=== PATIENT | female | born 1930 | race Caucasian/White ===

== ENCOUNTER 2017-01-27 16:45 | Inpatient (IN) | payer OTHER, MEDICARE ==
[~2017-01-27] VITALS: Ht 149.9 cm; Wt 88.5 kg
[~2017-01-27 16:45] MED LIST: AMLODIPINE BESYL5 M1 PO; ATIVAN0.5 MG PO; BYETTA10 MCG/0.0 SC; CLONIDINE0.1 MG PO; COUMADIN 1 MG TA1 MG PO; COUMADIN3 M1 PO; DIOVAN320 M1 PO; FENOFIBRATE150 MG PO; GABAPENTIN300 MG PO; HUMALOG100 UNIT/1 SC; HYDRALAZINE HCL25 M1 PO; HYDRALAZINE10 MG PO; IMDUR60 MG PO; INDAPAMIDE2.5 M1 PO; ISOSORBIDE MONO60 MG PO; K-TAB ER20 MEQ PO; LABETALOL HYDR100 MG PO; LANTUS SOL100 UNIT/1 SC; LOVAZA1 G1 PO; MONTELUKAST SOD10 MG PO; MOTRIN 600 MG600 MG PO; NORVASC 10MG10 MG PO; OMEGA-3-ACID ETH1 GM PO; TRICOR160 MG PO; VITAMIN D2000 UNI1 PO; WARFARIN SODIUM3 MG PO
--- NOTE | 2017-01-27 16:52 | NUR ---
PER PT SENT BY DR. BO FOR WORSENING SOB AND EKG CHANGES. PER PT SOB LAST FEW DAYS, PT SOB AT REST.
--- NOTE | 2017-01-27 17:09 | NUR ---
RECIEVED TO ROOM 2. ON MONITOR IN SINUS RHYTHM. SOB WITH TALKING. SATS 95% ON ROOM AIR. DEVON JOY PA IN TO SEE PT. DTRS AT BEDSIDE. STATES PT HAS HISTORY OF PE IS ON COUMADIN AND HAD SIMILARY SYMPTOMS WHEN SHE HAD HER PE.
--- NOTE | 2017-01-27 17:16 | ED CARDIAC/CP/PALPITATIONS ---
See Addendum History of Present Illness General Chief Complaint: Dyspnea (COPD, CHF, Other) Stated Complaint: SIB BY DR WITH CHEST PAIN Source: patient, family, old records Exam Limitations: no limitations Vital Signs & Intake/Output Vital Signs & Intake/Output Vital Signs Date Time Temp Pulse Resp B/P B/P Pulse O2 O2 Flow FiO2 Mean Ox Delivery Rate 01/27 1653 98.3 68 28 154/73 Allergies Coded Allergies: Sulfa (Sulfonamide Antibiotics) (Severe, ANAPHYLAXIS 04/05/16) STATINS (BAD REAXCTION 01/27/17) YUKO Inhibitors (Intermediate, COUGH 04/05/16) Triage Note: PER PT SENT BY DR. BO FOR WORSENING SOB AND EKG CHANGES. PER PT SOB LAST FEW DAYS, PT SOB AT REST. Triage Nurses Notes Reviewed? yes HPI: Patient is an 86 year old female sent in by her primary doctor for further evaluation of dyspnea and chest pain with exertion. Chest pain with exertion for a couple of months, worse x 2 days. Chest pain is 0/10 currently, last epsiode 1 hour ago while at her doctor's office when she was walking in the hallway. Dyspnea is currently mild at rest, worsens with exertion. Patient has history of 2nd degree heart block. On coumadin for history of PE, INR was 2.2 today at the doctor's office. Bilateral lower extremity edema, chronic and unchanged per patient. Chest pain is a heaviness sensation, intermittently radiates to the left chest. Nausea yesterday, none today. Denies diaphoresis, fevers, chills, vomiting. (RUFINO KINCAID,DEVON) Reconcile Medications Amlodipine Besylate 5 MG TABLET 1 TAB PO BID HEART/BP (Reported) Cholecalciferol (Vitamin D3) (Vitamin D) 2,000 UNIT TABLET 1 TAB PO DAILY SUPPLEMENT (Reported) Clonidine HCl 0.2 MG TABLET 1 TAB PO QHS BP (Reported) Exenatide (Byetta) 10MCG/0.04 PEN.INJCTR 10 MG SC BID DM (Reported) Fenofibrate 150 MG CAPSULE 1 CAP PO EOD CHOLESTEROL/TRIGLYCERIDES (Reported) Gabapentin (Neurontin) 300 MG CAPSULE 1 CAP PO QHS DYSARTHRIA (Reported) Gabapentin 400 MG CAPSULE 1 CAP PO QHS DYSARTHRIA (Reported) Hydralazine HCl 25 MG TABLET 1 TAB PO TID BP (Reported) Indapamide 2.5 MG TABLET 1 TAB PO DAILY BP (Reported) Insulin Glargine,Hum.rec.anlog (Lantus Solostar) 100 UNIT/1 ML INSULN.PEN 26 UNIT SC QAM DIABETES (Reported) Insulin Glargine,Hum.rec.anlog (Lantus Solostar) 100 UNIT/ML (3 ML) INSULN.PEN 2 UNITS SC QPM DM (Reported) Insulin Lispro (Humalog) 100 UNIT/ML CARTRIDGE 2 UNITS SC TIDAC DM (Reported) Isosorbide Mononitrate (Isosorbide Mononitrate ER) 60 MG TAB.ER.24H 1 TAB PO BID HEART (Reported) Montelukast Sodium 10 MG TABLET 1 TAB PO DAILY ALLERGIES/RESPIRATORY ( Reported) [place]-3 Acid Ethyl Esters (Lovaza) 1 GRAM CAPSULE 1 CAP PO BID CHOLESTEROL ( Reported) Potassium Chloride (K-Tab ER) 20 MEQ TABLET.ER 1 TAB PO DAILY SUPPLEMENT ( Reported) Valsartan (Diovan) 320 MG TABLET 1 TAB PO DAILY HEART/BP (Reported) Warfarin Sodium (Coumadin) 3 MG TABLET 1 TAB PO 1700 BLOOD THINNER (Reported) (RUSSEL ULLOA,OXANA) Past History Travel History Traveled to [place] past 21 day No Medical History Any Pertinent Medical History? 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 No (DEVON SMITH) Review of Systems Review of Systems Constitutional: Denies: chills, fever. EENTM: Reports: no symptoms. Respiratory: Reports: short of breath (with exertion). Cardiovascular: Reports: peripheral edema. Denies: chest pain, syncope. GI: Denies: abdominal pain, nausea, vomiting. Genitourinary: Reports: no symptoms. Musculoskeletal: Reports: no symptoms. Skin: Reports: no symptoms. Neurological/Psychological: Reports: no symptoms. Hematologic/Endocrine: Reports: no symptoms. Immunologic/Allergic: Reports: no symptoms. (DEVON SMITH) Physical Exam Physical Exam General Appearance: well developed/nourished, alert, awake Head: atraumatic, normal appearance Eyes: Bilateral: normal appearance, PERRL, EOMI. Ears, Nose, Throat: normal pharynx, normal ENT inspection, hearing grossly normal Neck: normal inspection, supple, full range of motion Respiratory: normal breath sounds, chest non-tender, no respiratory distress Cardiovascular: irregular rhythm, rate controlled Peripheral Pulses: 2+ dorsalis pedis (R), 2+ dorsalis pedis (L) Gastrointestinal: soft, non-tender Back: normal inspection, normal range of motion Extremities: 2+ bilateral lower extremity edema Neurologic/Psych: awake, alert, oriented x 3 Skin: intact, normal color, warm/dry Lymphatic: no anterior cervical nanda Core Measures ACS in differential dx? Yes ASA ordered for poss ACS? Yes-ordered Severe Sepsis Present: No Septic Shock Present: No (DEVON SMITH) Progress Differential Diagnosis: AMI, aortic dissection, myocarditis, pericarditis, pneumonia, pulmonary embolism, respiratory failure, unstable angina Plan of Care: Orders Procedure Date/time Status Regular Diet 01/27 D Active Patient Data 01/27 1848 Active OXYGEN SETUP (GEN) 01/27 1829 Active Saline Lock 01/27 1829 Active Admit to inpatient 01/27 182 Active Vital Signs 01/27 182 Active Activity/Ambulation 01/27 182 Active Code Status 01/27 182 Active Telemetry/Facility Coordinator 01/27 171 Active TROPONIN LEVEL 01/28 1716 Complete PARTIAL THROMBOPLASTIN TIME 01/28 1716 Complete PROTHROMBIN TIME 01/28 1716 Complete COMPREHENSIVE METABOLIC PANEL 01/28 1716 Complete CBC WITHOUT DIFFERENTIAL 01/28 1716 Complete EKG 01/28 1716 Active Laboratory Tests 01/27/17 1729: Anion Gap 11, Estimated GFR 47 L, BUN/Creatinine Ratio 37.3 H, Glucose 83, Calcium 10.2, Total Bilirubin 0.5, AST 29, ALT 39, Alkaline Phosphatase 39, Troponin I < 0.01, Total Protein 6.8, Albumin 4.0, Globulin 2.8, Albumin/ Globulin Ratio 1.4, PT 23.2 H, INR 2.23 H, APTT 36, CBC w Diff NO MAN DIFF REQ , RBC 3.98 L, MCV 88.8, MCH 29.6, RDW 15.0 H, MPV 7.5, Gran % 61.2, Lymphocytes % 26.2, Monocytes % 9.3, Eosinophils % 2.9, Basophils % 0.4, Absolute Granulocytes 5.3, Absolute Lymphocytes 2.3, Absolute Monocytes 0.8 H, Absolute Eosinophils 0.3, Absolute Basophils 0, PUBS MCHC 33.3 1720: Discussed with Dr. Mccollum 184: Results discussed with patient and her family. Dr. Harrison discussed patient with Dr. Kitchen for admission. (RUFINO KINCAID,DEVON) Diagnostic Imaging: Viewed by Me: Radiology Read. Discussed w/RAD: Radiology Read. CXR Impression: PATIENT: ALIYAH LEAVITT PRESENT AGE: 86 PATIENT ACCOUNT NO: [id number] : 31 LOCATION: [facility] ORDERING PHYSICIAN: DEVON KINCAID SERVICE DATE: 01/27/17 EXAM TYPE: RAD - XRY- PORTABLE CHEST XRAY EXAMINATION: XR PORTABLE CHEST CLINICAL INFORMATION: Dyspnea. Chest pain with exertion. COMPARISON: Chest x-ray 08/14/2015. Dictated report only. Images not available for review. TECHNIQUE: Portable frontal view of the chest was obtained. 5:30 PM. FINDINGS: Lungs are clear. No pulmonary vascular congestion. No infiltrate or pleural effusion. The heart size is normal. The cardiac and mediastinal contours are normal. There are calcifications of the thoracic aorta. There are multilevel degenerative changes of dorsal spine. IMPRESSION: No acute abnormality of the chest. DICTATED BY: MELISSA CHURCH MD DATE/TIME DICTATED:01/27/171805 SPECIAL EVENT ASSISTANT:MARCIN DATE/TIME TRANSCRIBED:01/27/171805 CONFIDENTIAL, DO NOT COPY WITHOUT APPROPRIATE AUTHORIZATION. <Electronically signed in Other Vendor System> SIGNED BY: MELISSA CHURCH MD 01/27/171809 Pre-Hospital EKG: sinus rhythm, 2nd degree heart block, no acute st/t wave changes Initial ED EKG: sinus rhythm, 1st degree AV block, nonspecific st/t wave abnormalities, lvh Prior EKG: unchanged Rhythm Strip: sinus bradycardia (DEVON SMITH) Departure Departure Time of Disposition: 1841 Disposition: STILL A PATIENT Condition: Stable Clinical Impression Primary Impression: Angina pectoris Referrals: HASMUKH ROACH MD (PCP/Family) Departure Forms: Customer Survey General Discharge Information Admission Note Spoke With: LAZARUS KITCHEN MD Documentation of Exam: Documentation of any treatments & extenuating circumstances including Concerns Regarding Discharge (functional status, medication knowledge or non-compliance, living conditions, etc.) that warrant an admission rather than observation: Serial EKGs, serial troponins, cardiology evaluation, stress test, echocardiogram, likely medication adjustment. Patient with numerous risk factors and having new anginal symptoms. (DEVON SMITH) PA/ROPE MACHINE SETTER Co-Sign Statement Statement: ED Attending supervision documentation- x I saw and evaluated the patient. I have also reviewed all the pertinent lab results and diagnostic results. I agree with the findings and the plan of care as documented in the PA's/ROPE MACHINE SETTER's documentation. [] I have reviewed the ED Record and agree with the PA's/ROPE MACHINE SETTER's documentation. [] Additions or exceptions (if any) to the PAs/ROPE MACHINE SETTER's note and plan are summarized below: [] (RUSSEL ULLOA,OXANA) Critical Care Note Critical Care Note Critical Care Time: non-applicable (DEVON SMITH)
--- NOTE | 2017-01-27 17:34 | NUR ---
LABS DRAWN. CXR DONE.
[2017-01-27 17:42] LABS: ABSOLUTE BASOPHIL COUNT 0 /CUMM (0.0-0.2); ABSOLUTE EOSINOPHIL COUNT 0.3 /CUMM (0.0-0.7); ABSOLUTE GRANULOCYTE CT 5.3 /CUMM (1.4-6.5); ABSOLUTE LYMPH COUNT 2.3 /CUMM (1.2-3.4); ABSOLUTE MONOCYTE COUNT 0.8 /CUMM (0.10-0.60); BASOPHIL % 0.4 % (0.0-2.0); EOSINOPHIL % 2.9 % (0-5); GRANULOCYTE % 61.2 % (42.2-75.2); HEMATOCRIT 35.4 % (37-47); MEAN CORPUSCULAR HGB 29.6 PG (27.0-31.0); MEAN CORPUSCULAR HGB CONC 33.3 G/DL (33.0-37.0); MEAN CORPUSCULAR VOLUME 88.8 FL (81.0-99.0); MEAN PLATELET VOLUME 7.5 FL (7.4-10.4); PLATELET COUNT 289 /CUMM (130-400); RED BLOOD CELL CT 3.98 /CUMM (4.20-5.40); WHITE BLOOD CELL COUNT 8.7 /CUMM (4.8-10.8)
[2017-01-27 17:50] LABS: PT 23.2 SEC (9.4-12.5); PTT 36 SEC (25-37)
--- NOTE | 2017-01-27 18:09 | NUR ---
FINGERSTICK GLUCOSE 85. PT IDDM AND IS CONCERNED HER SUGAR WILL GO LOWER AND STATES SHE IS SYMPTOMATIC WHEN LESS THEN 80. DEVON JOY NOTIFIED AND APPROVED PT TO HAVE ORANGE JUICE. PT GIVEN 120CC OJ
--- NOTE | 2017-01-27 18:10 | RADIOLOGY REPORT ---
EXAMINATION: XR PORTABLE CHEST CLINICAL INFORMATION: Dyspnea. Chest pain with exertion. COMPARISON: Chest x-ray 08/14/2015. Dictated report only. Images not available for review. TECHNIQUE: Portable frontal view of the chest was obtained. 5:30 PM. FINDINGS: Lungs are clear. No pulmonary vascular congestion. No infiltrate or pleural effusion. The heart size is normal. The cardiac and mediastinal contours are normal. There are calcifications of the thoracic aorta. There are multilevel degenerative changes of dorsal spine. IMPRESSION: No acute abnormality of the chest.
[2017-01-27] MEDS ORDERED: ISOSORBIDE MONO60 M1 PO (18:38)
[2017-01-27] MEDS ORDERED: MONTELUKAST SOD10 M1 PO (18:39)
[2017-01-27] MEDS ORDERED: FENOFIBRATE PO (18:41)
[2017-01-27] MEDS ORDERED: NEURONTIN300 M1 PO (18:43)
[2017-01-27] MEDS ORDERED: CLONIDINE HCL0.2 M1 PO (18:44)
--- NOTE | 2017-01-27 18:44 | NUR ---
PT MEDICATED WITH ASA . CONFIRMED PLAN FOR ADMISSION.
[2017-01-27] MEDS ORDERED: LANTUS SOL100 UNIT/1 SC (18:45)
[2017-01-27] MEDS ORDERED: GABAPENTIN400 M2 PO (18:49)
--- NOTE | 2017-01-27 19:10 | NUR ---
PT ATE DINNER
--- NOTE | 2017-01-27 19:54 | NUR ---
PT GOING TO ROOM 172-1.
--- NOTE | 2017-01-27 20:13 | NUR ---
PT WITH PERIODS OF SINUS RHYTHM WITH FIRST DEGREE AV BLOCK AND PERIODS OF SECOND DEGREE TYPE 1. PER FAMILY THIS IS BASELINE RHYTHM FOR PATIENT
--- NOTE | 2017-01-27 20:25 | NUR ---
REPORT CALLED TO TELE UNIT. HOUSE STAFF IN TO SEE PT.
--- NOTE | 2017-01-27 20:44 | NUR ---
HOUSE STAFF COMPLETED VISIT WITH PT
[2017-01-27 21:14] VITALS: BP 188/62
--- NOTE | 2017-01-27 21:19 | History & Physical ---
VALENTE ULLOA,[facility] 01/27/17 2118: General Information and HPI Allergies/Medications Allergies: Coded Allergies: Sulfa (Sulfonamide Antibiotics) (Severe, ANAPHYLAXIS 04/05/16) STATINS (BAD REAXCTION 01/27/17) YUKO Inhibitors (Intermediate, COUGH 04/05/16) Home Med list Amlodipine Besylate 5 MG TABLET 1 TAB PO BID HEART/BP (Reported) Cholecalciferol (Vitamin D3) (Vitamin D) 2,000 UNIT TABLET 1 TAB PO DAILY SUPPLEMENT (Reported) Clonidine HCl 0.2 MG TABLET 1 TAB PO QHS BP (Reported) Exenatide (Byetta) 10MCG/0.04 PEN.INJCTR 10 MG SC BID DM (Reported) Fenofibrate 150 MG CAPSULE 1 CAP PO EOD CHOLESTEROL/TRIGLYCERIDES (Reported) Gabapentin 400 MG CAPSULE 1 CAP PO QHS DYSARTHRIA (Reported) Hydralazine HCl 25 MG TABLET 1 TAB PO TID BP (Reported) Indapamide 2.5 MG TABLET 1 TAB PO DAILY BP (Reported) Insulin Glargine,Hum.rec.anlog (Lantus Solostar) 100 UNIT/1 ML INSULN.PEN 26 UNIT SC QAM DIABETES (Reported) Insulin Glargine,Hum.rec.anlog (Lantus Solostar) 100 UNIT/ML (3 ML) INSULN.PEN 2 UNITS SC QPM DM (Reported) Insulin Lispro (Humalog) 100 UNIT/ML CARTRIDGE 2 UNITS SC TIDAC DM (Reported) Isosorbide Mononitrate (Isosorbide Mononitrate ER) 60 MG TAB.ER.24H 1 TAB PO BID HEART (Reported) Montelukast Sodium 10 MG TABLET 1 TAB PO DAILY ALLERGIES/RESPIRATORY ( Reported) [place]-3 Acid Ethyl Esters (Lovaza) 1 GRAM CAPSULE 1 CAP PO BID CHOLESTEROL ( Reported) Potassium Chloride (K-Tab ER) 20 MEQ TABLET.ER 1 TAB PO DAILY SUPPLEMENT ( Reported) Valsartan (Diovan) 320 MG TABLET 1 TAB PO DAILY HEART/BP (Reported) Warfarin Sodium (Coumadin) 3 MG TABLET 1 TAB PO 1700 BLOOD THINNER (Reported) Past History Travel History Traveled to [place] past 21 day No Medical History Neurological: ADULT TREMORS EENT: NONE Cardiovascular: hypertension, hyperlipidemia Respiratory: pulmonary embolism Gastrointestinal: diverticulitis, irritable bowel syndrome, peptic ulcer disease , KIDNEY STONES Hepatic: NONE Renal: NONE Musculoskeletal: NONE Psychiatric: NONE Endocrine: diabetes Blood Disorders: PE Cancer(s): breast cancer 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 yes Name of POA/HCP: Her Daughter Functional Ability ADLs Independent: dressing, eating, toileting, bathing. Ambulation: cane Core Measures/Miscellaneous Severe Sepsis Severe Sepsis Present: No Septic Shock Septic Shock Present: No AIDEE GIFFORD 01/27/17 8526: General Information and HPI MD Statement: I have seen and personally examined ALIYAH LEAVITT and documented this H&P. The patient is a 86 year old F who presented with a patient stated chief complaint of []. Resident Review Statement Resident Statement: examined this patient, discussed with architect internship, agreed with architect internship, discussed with family, reviewed EMR data (avail) Other Findings: Ms. Leavitt, is an 86-year-old female with significant past medical history of hypertension, diverticulitis, IBS, diabetes, R breast cancer status post bilateral lumpectomy [no radiation/chemotherapy], and pulmonary embolism on Coumadin therapy, who presents to the emergency department with a c/o of SOB and chest tightness. Patient report that her started about 1 ALBALWAI,AFAF 01/27/17 2316: Resident Review Statement Resident Statement: examined this patient, discussed with architect internship, agreed with architect internship, discussed with family, reviewed EMR data (avail)
--- NOTE | 2017-01-27 23:36 | History & Physical ---
VALENTE ULLOA,[facility] 01/27/17 2336: General Information and HPI MD Statement: I have seen and personally examined ALIYAH LEAVITT and documented this H&P. The patient is a 86 year old F who presented with a patient stated chief complaint of [dyspnea, chest pain on exertion]. Source of Information: patient, family, old records Exam Limitations: no limitations, clinical condition History of Present Illness: Ms. Leavitt is 86 year old female with chief complaint of dyspnea and chest pain on exertion. Patient has past medical history significant for hypertension, PE on Coumadin, essential tremors, second-degree heart block Mobitz 1, diverticulosis, irritable bowel syndrome, diabetes mellitus, breast cancer status post bilateral lumpectomy (no radiation or chemotherapy). Patient reported two-month history of progressively worsening dyspnea on rest and activity associated with chest discomfort that is on and off lasts for few seconds at the center of her chest and radiates to left side, not associated with palpitation, diaphoresis, headache, blurry vision, dizziness. She used to sleep with 2 pillows denied any orthopnea or paroxysmal nocturnal dyspnea. Patient is following with a terminal superintendent for sleep study. Patient has bilateral lower extremity swelling that is chronic and at baseline. Patient reported cough, denied fever, chills, abdominal pain, nausea or vomiting , change in bowel habits. Patient has urine incontinence. History of pneumonia last month that was treated with an antibiotic as an outpatient. Patient is never a smoker, no alcohol consumption and no history of illict drug. Patient is following with Dr. Mcginnis hydrometer finisher. Allergies/Medications Allergies: Coded Allergies: Sulfa (Sulfonamide Antibiotics) (Severe, ANAPHYLAXIS 04/05/16) STATINS (BAD REAXCTION 01/27/17) YUKO Inhibitors (Intermediate, COUGH 04/05/16) Home Med list Amlodipine Besylate 5 MG TABLET 1 TAB PO BID HEART/BP (Reported) Cholecalciferol (Vitamin D3) (Vitamin D) 2,000 UNIT TABLET 1 TAB PO DAILY SUPPLEMENT (Reported) Clonidine HCl 0.2 MG TABLET 1 TAB PO QHS BP (Reported) Exenatide (Byetta) 10MCG/0.04 PEN.INJCTR 10 MG SC BID DM (Reported) Fenofibrate 150 MG CAPSULE 1 CAP PO EOD CHOLESTEROL/TRIGLYCERIDES (Reported) Gabapentin 400 MG CAPSULE 1 CAP PO QHS DYSARTHRIA (Reported) Hydralazine HCl 25 MG TABLET 1 TAB PO TID BP (Reported) Indapamide 2.5 MG TABLET 1 TAB PO DAILY BP (Reported) Insulin Glargine,Hum.rec.anlog (Lantus Solostar) 100 UNIT/1 ML INSULN.PEN 26 UNIT SC QAM DIABETES (Reported) Insulin Glargine,Hum.rec.anlog (Lantus Solostar) 100 UNIT/ML (3 ML) INSULN.PEN 2 UNITS SC QPM DM (Reported) Insulin Lispro (Humalog) 100 UNIT/ML CARTRIDGE 2 UNITS SC TIDAC DM (Reported) Isosorbide Mononitrate (Isosorbide Mononitrate ER) 60 MG TAB.ER.24H 1 TAB PO BID HEART (Reported) Montelukast Sodium 10 MG TABLET 1 TAB PO DAILY ALLERGIES/RESPIRATORY ( Reported) [place]-3 Acid Ethyl Esters (Lovaza) 1 GRAM CAPSULE 1 CAP PO BID CHOLESTEROL ( Reported) Potassium Chloride (K-Tab ER) 20 MEQ TABLET.ER 1 TAB PO DAILY SUPPLEMENT ( Reported) Valsartan (Diovan) 320 MG TABLET 1 TAB PO DAILY HEART/BP (Reported) Warfarin Sodium (Coumadin) 3 MG TABLET 1 TAB PO 1700 BLOOD THINNER (Reported) Past History Travel History Traveled to [place] past 21 day No Medical History Neurological: ADULT TREMORS EENT: NONE Cardiovascular: hypertension, hyperlipidemia Respiratory: pulmonary embolism Gastrointestinal: diverticulitis, irritable bowel syndrome, peptic ulcer disease , KIDNEY STONES Hepatic: NONE Renal: NONE Musculoskeletal: NONE Psychiatric: NONE Endocrine: diabetes Blood Disorders: PE Cancer(s): breast cancer GAME PRODUCER/Reproductive: NONE History of MRSA: Yes History of VRE: No History of CDIFF: No Isolation History: Standard Tetanus Vaccine: 12/28/11 Surgical History Surgical History: appendectomy, cholecystectomy, hernia repair-incisional, LUMPECTOMY BL CARPAL TUNNEL R ROTATOR CUFF GALLBLADDER CATARACTS BL Past Family/Social History Psychosocial History Where do you live? Home Services at Home: None Smoking Status: Unknown If Ever Smoked Power of Inner Layer Scrubber Tender/HCP? yes Name of POA/HCP: Her Daughter Functional Ability ADLs Independent: dressing, eating, toileting, bathing. Ambulation: cane Review of Systems Review of Systems Constitutional: Reports: see HPI. Exam & Diagnostic Data Last 24 Hrs of Vital Signs/I&O Vital Signs Date Time Temp Pulse Resp B/P B/P Pulse O2 O2 Flow FiO2 Mean Ox Delivery Rate 01/273 95 01/274 98.4 52 16 188/62 96 Room Air 01/28 2012 Room Air 01/27 1951 96.7 62 20 97 Room Air 01/279 172/68 05 1653 98.3 68 28 154/73 Physical Exam General Appearance Alert, Oriented X3, Cooperative, Mild Distress Skin No Rashes, No Breakdown, No Significant Lesion Skin Temp/Moisture Exam: Warm/Dry HEENT Atraumatic, PERRLA, EOMI, Mucous Membr. moist/pink Neck Supple, No JVD Lymphatic no cervical lymphadenopathy Cardiovascular Regular Rate, Normal S1, Normal S2, No Murmurs Lungs Clear to Auscultation, Normal Air Movement Abdomen Normal Bowel Sounds, Soft, No Tenderness Neurological Normal Gait, Normal Speech, Strength at 5/5 X4 Ext, Normal Tone, Sensation Intact, Cranial Nerves 3-12 NL, Reflexes 2+ Extremities No Clubbing, No Cyanosis, No Edema, Normal Pulses Assessment/Plan Assessment: Ms. Leavitt is 86 year old female with chief complaint of dyspnea and chest pain on exertion. Patient has past medical history significant for hypertension, PE on Coumadin, essential tremors, second-degree heart block Mobitz 1, diverticulosis, irritable bowel syndrome, diabetes mellitus, breast cancer status post bilateral lumpectomy (no radiation or chemotherapy). On admission Vital temperature 98.3, pulse 68, respiratory 28, blood pressure 154/73, saturation 96% on room air Labs WBC 8.7, H&H 11.8/35.4, platelet 289, INR 2.23, sodium 135, potassium 4.9, BUN/creatinine 41/1.1, glucose 83, liver function within normal, troponin <0.01 Image chest x-ray didn't reveal any acute abnormality of the chest Problem list #Progressive worsening dyspnea #History of PE on warfarin with therapeutic INR #Hypertension #Diabetes mellitus #Heart block type 2 Mobitz 1 #Essential tremors #Chronic kidney disease Plan -Admit to telemetry floor -Progressive worsening dyspnea in absence of lower extremity edema or JVP makes the diagnosis of congestive heart failure of low probability -Although patient has dyspnea, she has been saturating well on room oxygen -Consider d-dimer to rule out PE, warfarin failure Well's createria 4.5 moderate risk -CTA with hydration and setting of chronic kidney disease -Will start heparin drip -Obtain echocardiogram (last echo in the system 2014 EF 60-65%, no valvular abnormality) -Cardiology evaluation in a.m. -Obtain second set of troponin and EKG -Monitor in telemetry for any arrhythmia -Obtain TSH, free T4 -Obtain PBNP -Accu-Chek with insulin sliding scale 3 times a day -Continue home levemir 26 units in a.m. and 2 units in p.m. -Continue other home medication except for warfrain -Diet diabetic diet -Code full -DVT prophylaxis heparin drip As Ranked By This Provider Problem List: 1. Diabetes mellitus 2. Essential hypertension 3. Shortness of breath 4. Second degree AV block, Mobitz type I Core Measures/Miscellaneous Acute Coronary Syndrome ACS Diagnosis: No Cerebrovascular Accident CVA/TIA Diagnosis: No Congestive Heart Failure CHF Diagnosis: No Venous Thromboembolism VTE Risk Factors: Age > 40 No [facility] VTE prophylaxis d/t: No contraindications No VTE Pharm Prophylaxis d/t: No contraindications VTE Diagnosis: No VTE Type: NONE VTE Confirmed by (Test): NONE Severe Sepsis Severe Sepsis Present: No Septic Shock Septic Shock Present: No Miscellaneous Documentation Attending Case Discussed With: FIDELINA ULLOA,LAZARUS Bragg Primary Care Physician: HASMUKH ROACH MD Patient sees these Specialists Cardiology Level of Patient Care: Telemetry DYLON OLIVAS 01/27/17 2355: Resident Review Statement Resident Statement: examined this patient, discussed with communications intern, agreed with communications intern, discussed with family, reviewed EMR data (avail) Other Findings: Ms. Leavitt, is an 86-year-old female with significant past medical history of hypertension, diverticulitis, IBS, diabetes, R breast cancer status post bilateral lumpectomy [no radiation/chemotherapy, and pulmonary embolism on Coumadin therapy, who presents to the emergency department with a c/o of SOB and chest tightness. Patient report SOB of breath over the last 2 months, getting progressively worse , now even with rest, she report chest tightness radiating to the left armpit, she denies any cough or sputum production, she had B/L LE swelling in her baseline, she use compression stocking for that, today she was evaluated by her PCP who refer her to our ED she found to be tachypneic her RR:28, she had INR of 2.23 but she may failed coumadin. Details Hx. as above Vitals, examination and Labs as above CXR: No acute abnormality of the chest. EKst degree block, 61bpm, no acute changes Well's criterea 7.5, PE is very likely Assessment: -SOB which is most likely secondary to PE vs CHF -Chest tightness needs to R/O ACS -Hx. of PE on coumadin with therapeutic INR -First degree heart block, no symptoms of dizziness or palpitation -Essential tremor -Uncontrolled BP -Hx. of diabetes Plan: * Will admitt to telemetry floor * Stat CTA * If CTA +ve for PE will start iv heparin, if no PE will continue Coumadin * Please monitor kidney function, creatinie at am, after contrast * Will hold on Lasix for now until morning lab, if no elevation in creatinine level, consider 1 dose of 20mg IV Lasix (For now I don't want to stress her kidney after contrast) * No need to order D-Dimer (Low specificity), as we are doing CTA which is gold standard to confirm PE. * Will start all of her home medications * Monitor her BP and adjust her medications as needed * Acchucheck, insulin sliding scale * Echocardiogram * Will trend troponin and EKG * Labs at am * To be seen by at am Full code DVT ppx. Heparin Case was discussed with oncall hydrometer finisher who agreed with 'above [facility] 1024: Attending MD Review Statement Attending Statement Attending MD Statement: examined this patient, discuss w/resident/PA/MINE PROMOTOR, reviewed EMR data (avail), reviewed images, amended to note (see my note)
--- NOTE | 2017-01-28 00:21 | CT SCAN REPORT ---
EXAMINATION: CT ANGIOGRAM OF THE CHEST WITH AND WITHOUT CONTRAST (CT PULMONARY ANGIOGRAM FOR PE) CLINICAL INFORMATION: Reason for Study: Presumptive Dx: PE; Signs Symptoms: SOB COMPARISON: 08/15/2015 TECHNIQUE: Prior to contrast administration, noncontrast localization images were obtained. Subsequently, multidetector volumetric imaging was performed from the thoracic inlet to below the diaphragms following the administration of 72 mL Optiray 350 intravenous contrast. No contrast reaction reported. Sagittal, coronal, and MIP oblique sagittal reformatted images were obtained on the CT workstation, uploaded to PACS, and reviewed. Total exam dose-length product 503.63 mGy-cm. FINDINGS: QUALITY OF STUDY/CONTRAST BOLUS: Satisfactory PULMONARY ARTERIES: No central or segmental pulmonary emboli. LUNG: Redemonstrated subpleural curvilinear opacity in the medial right lower lobe is suspected to reflect atelectasis. No additional consolidation is seen bilaterally. There is a subpleural 3 mL pulmonary nodule in the right middle lobe on image 260/443, unchanged from prior and likely benign. PLEURA: No pleural effusion or pneumothorax. MEDIASTINUM: Partially calcified right thyroid lobe nodule is noted. There are subcentimeter mediastinal lymph nodes within the range of normal variation. Cardiac size is within normal limits; no pericardial effusion. Coronary artery calcifications are present. No evidence of septal bowing or right heart strain. There is atherosclerotic calcification along the aorta. There is suggestion of a small hiatal hernia. CHEST WALL/AXILLA: There is a partially calcified right upper breast density with overlying skin retraction which appears increased from 08/15/2015. No axillary lymphadenopathy is present. OSSEOUS STRUCTURES: Degenerative changes are noted in the spine. There are subacute appearing fractures of the anterior right fifth and sixth ribs. UPPER ABDOMEN: There is a left upper pole renal cyst measuring up to 1.6 cm in diameter. No reflux of contrast into the hepatic veins to suggest elevated right heart pressures. IMPRESSION: 1. No pulmonary embolus identified. 2. Partially calcified right upper breast density, with increased overlying skin retraction since 08/15/2015. Clinical correlation is recommended along with correlation with dedicated breast imaging, as this could reflect post surgical changes/scarring, though underlying malignancy cannot be excluded. 3. Right thyroid nodule, not fully assessed on this exam. If clinically warranted, this may be further assessed with follow-up ultrasound. 4. Subacute appearing fractures of the anterior right fifth and sixth ribs. VTE: negative
[2017-01-28 01:17] VITALS: BP 156/68
[2017-01-28 05:38] LABS: ABSOLUTE BASOPHIL COUNT 0.1 /CUMM (0.0-0.2); ABSOLUTE EOSINOPHIL COUNT 0.4 /CUMM (0.0-0.7); ABSOLUTE MONOCYTE COUNT 0.7 /CUMM (0.10-0.60); BASOPHIL % 0.9 % (0.0-2.0); EOSINOPHIL % 5.5 % (0-5); GRANULOCYTE % 55.4 % (42.2-75.2); HEMATOCRIT 35.9 % (37-47); MEAN CORPUSCULAR HGB 29.3 PG (27.0-31.0); MEAN CORPUSCULAR HGB CONC 32.8 G/DL (33.0-37.0); MEAN CORPUSCULAR VOLUME 89.3 FL (81.0-99.0); MEAN PLATELET VOLUME 7.3 FL (7.4-10.4); PLATELET COUNT 277 /CUMM (130-400); RBC DISTRIBUTION WIDTH 15.1 % (11.5-14.5); RED BLOOD CELL CT 4.01 /CUMM (4.20-5.40); WHITE BLOOD CELL COUNT 7.2 /CUMM (4.8-10.8)
[2017-01-28 05:43] LABS: PT 23.2 SEC (9.4-12.5)
--- NOTE | 2017-01-28 07:34 | PN- Housestaff ---
RANDI ZIEGLER 01/28/17 0734: Subjective Follow-up For: Worsening shortness of breath Complaints: no complaints Subjective: Patient was seen and examined this morning. She was sitting comfortably on chair without any complaints. She admits that her shortness of breath is slightly better than on admission. She was saturating fine on room air. She remained afebrile. Her blood pressure was slightly on the higher side was given her home medications. The WBC count remained stable as well as her H&H. Her INR was therapeutic. Review of Systems Constitutional: Denies: chills, diaphoresis. EENTM: Denies: blurred vision, double vision, visual changes. Cardiovascular: Reports: edema, orthopena. Denies: chest pain. Respiratory: Reports: short of breath. Denies: cough. Gastrointestinal: Denies: bloating, constipation. Genitourinary: Denies: dysuria. Objective Last 24 Hrs of Vital Signs/I&O Vital Signs Date Time Temp Pulse Resp B/P B/P Pulse O2 O2 Flow FiO2 Mean Ox Delivery Rate 01/28 1048 62 178/60 01/28 0900 98.0 56 20 166/60 96 Room Air 01/28 0800 Room Air 01/28 0523 51 178/76 01/28 0117 98.6 63 18 156/68 97 Room Air 01/28 0030 48 152/84 01/28 0020 56 156/68 01/27 2203 95 01/27 2114 98.4 52 16 188/62 96 Room Air 01/28 2012 Room Air 01/27 1951 96.7 62 20 97 Room Air 01/27 1949 172/68 01/27 1653 98.3 68 28 154/73 Intake & Output 01/28 1600 01/28 0800 05 0000 Intake Total 480 400 Output Total 450 725 Balance 30 -325 Intake, Oral 480 400 Output, Urine 450 725 Patient 195 lb Weight Weight Reported by Patient Measurement Method Physical Exam General Appearance: Alert, Oriented X3, Cooperative Cardiovascular: Regular Rate, Normal S1, Normal S2, No Murmurs Lungs: Normal Air Movement Abdomen: Soft, No Hepatospenomegaly Current Medications: Current Medications Sig/Roshan Start time Last Medication Dose Route Stop Time Status Admin Amlodipine Besylate 5 MG BID 01/28 1000 CAN PO Amlodipine Besylate 5 MG BID 01/28 1000 DCD 05 PO 1049 Amlodipine Besylate 5 MG ONCE ONE 01/27 2245 DC 01/28 PO 01/27 2246 0020 Aspirin 0 .STK-MED ONE 01/27 1842 DC PO Aspirin 325 MG ONCE ONE 01/27 1830 DC 05 PO 01/27 183 1844 Cholecalciferol 1,000 IU DAILY 01/28 1000 DCD 01/28 PO 1040 Clonidine 0.2 MG AT BEDTIME 01/27 2300 DCD PO Dextrose/Sodium 1,000 ML Q13H 01/28 0100 CAN Chloride IV Fenofibrate 145 MG Q48 01/29 1000 DCD PO Fish Oil 1,050 MG BID 01/27 2300 DCD 01/28 PO 1040 Furosemide 20 MG ONCE ONE 01/28 0045 CAN IV 01/28 0046 Gabapentin 400 MG AT BEDTIME 01/27 2200 DCD 01/27 PO 2319 Heparin Sodium 5,000 UNIT ONCE ONE 01/28 0045 CAN (Porcine) IV 01/28 0046 Heparin Sodium 5,000 UNIT Q8 01/27 2200 DC (Porcine) SC Heparin Sodium/ 25,000 UNIT Q24H 01/27 2300 DC Dextrose IV Dextrose/Water 500 ML Hydralazine HCl 25 MG ONCE ONE 01/28 0515 DC 01/28 PO 01/28 0516 0523 Hydralazine HCl 25 MG TID 01/27 2200 DCD PO Indapamide 2.5 MG DAILY 01/28 1000 DCD 01/28 PO 1049 Insulin Aspart 0 TIDAC 01/28 0800 DCD SC Insulin Detemir 2 UNITS QPM 01/28 2200 DCD SC Insulin Detemir 26 UNITS QAM 01/28 1000 DCD 01/28 SC 1037 Isosorbide 60 MG BID 01/27 2200 DCD 01/28 Mononitrate PO 1048 Losartan Potassium 100 MG DAILY 01/28 1000 DCD 01/28 PO 1048 Montelukast Sodium 10 MG 2200 01/28 2200 DCD PO Potassium Chloride 20 MEQ DAILY 01/28 1000 DCD PO Warfarin Sodium 3 MG 1700 / 1700 CAN PO 01/28 1701 Warfarin Sodium 3 MG COUMADIN 1700 ONE 01/28 1700 DCD PO 01/28 1701 Last 24 Hrs of Lab/Abraham Results Last 24 Hrs of Labs/Mics: Laboratory Tests 01/28/17 0520: Anion Gap 11, Estimated GFR 43 L, BUN/Creatinine Ratio 31.7 H, Troponin I < 0.01, PT 23.2 H, INR 2.23 H, CBC w Diff NO MAN DIFF REQ, RBC 4.01 L, MCV 89.3 , MCH 29.3, RDW 15.1 H, MPV 7.3 L, Gran % 55.4, Lymphocytes % 28.0, Monocytes % 10.2 H, Eosinophils % 5.5 H, Basophils % 0.9, Absolute Granulocytes 4.0, Absolute Lymphocytes 2.0, Absolute Monocytes 0.7 H, Absolute Eosinophils 0.4, Absolute Basophils 0.1, PUBS MCHC 32.8 L 01/27/172326: D-Dimer Cancelled 01/27/172319: Troponin I 0.01 01/27/17 1729: Anion Gap 11, Estimated GFR 47 L, BUN/Creatinine Ratio 37.3 H, Glucose 83, Calcium 10.2, Total Bilirubin 0.5, AST 29, ALT 39, Alkaline Phosphatase 39, Troponin I < 0.01, Total Protein 6.8, Albumin 4.0, Globulin 2.8, Albumin/ Globulin Ratio 1.4, PT 23.2 H, INR 2.23 H, APTT 36, CBC w Diff NO MAN DIFF REQ , RBC 3.98 L, MCV 88.8, MCH 29.6, RDW 15.0 H, MPV 7.5, Gran % 61.2, Lymphocytes % 26.2, Monocytes % 9.3, Eosinophils % 2.9, Basophils % 0.4, Absolute Granulocytes 5.3, Absolute Lymphocytes 2.3, Absolute Monocytes 0.8 H, Absolute Eosinophils 0.3, Absolute Basophils 0, PUBS MCHC 33.3 Assessment/Plan Assessment: Patient is 86-year-old female with past medical history significant for hypertension, history of pulmonary embolism currently on Coumadin, essential tremors, AV conduction block abnormality with first-degree and second-degree heart block Mobitz type I, diabetes, breast cancer status post bilateral lumpectomy came with chief complaint of shortness of breath for last 2 months that was recently been getting worse. Patient was admitted on telemetry floor and we addressed the following issues Problem #1 worsening shortness of breath which is present for a couple of months but in the setting of history of pulmonary embolism and history of breast cancer but would embolism was ruled out by CTA. -Acute coronary syndrome was also ruled out as first 3 sets of troponins were negative and EKG was not evident for any acute ischemic changes -Patient was also evaluated by cardiology Marquise Vanessa MD and patient would need outpatient cardiac workup including stress test later and her echocardiogram will be done as outpatient as well. As she does not have any acute cardiac/pulmonary pathology we will discharge patient home today and she will follow up with cardiology in a week -As patient had underlying COPD and on bronchodilators. Patient was seen by her pulp maker a week ago and he wants cardiac and. We will send patient back to pulp maker to further workup including pulmonary function testing near future. -At this point as patient has chronic tremors and there also interfering with her breathing and make her more short of breath. Problem #2 history of hypertension Patient's systolic blood pressure was higher during hospital stay but she is on reasonable antihypertensives and will send her home on her current antihypertensives and she will follow-up with cardiology in 1 week. Problem #3 history of pulmonary embolism on Coumadin New pulmonary embolism was ruled out and as her INR is therapeutic we will send her on current dose of Coumadin Problem #4 history of diabetes We will send patient home on her home dose of insulin Pharmacological DVT prophylaxis with Coumadin Heart healthy diet Patient is full code Problem List: 1. Tremor 2. Shortness of breath 3. Essential hypertension Pain Ratin Pain Location: Not applicable Pain Goal: Remain pain free Pain Plan: Not applicable Tomorrow's Labs & Rationales: None JOSE ULLOA,MARQUISE 01/28/17 1141: Attending Review Statement Attending Statement Attending MD Statement: examined this patient, discuss w/resident/PA/IN SCHOOL SUSPENSION AIDE, reviewed EMR data (avail), discussed with nursing, reviewed images, amended to note (see my note)
[2017-01-28 09:00] VITALS: BP 166/60
--- NOTE | 2017-01-28 10:47 | Patient Discharge Instructions ---
Discharge Instructions General Discharge Information You were seen/treated for: worsening shoertness of breath Special Instructions: Please follow up with your PCP in one week Please follow up with your zinc furnace charger in his office in week of discharge and you need further cardiac workup as out patient . Please follow up with your tool specialist in one week of discharge Diet Recommended Diet: Heart Healthy Activity Additional ACTIVITY Info: as tolerated with assistance Acute Coronary Syndrome Inclusion Criteria At DC or during hospital stay patient has or had the following: ACS DIAGNOSIS No Discharge Core Measures Meds if any: Prescribed or Continued at Discharge Meds if any: NOT Prescribed or Continued at Discharge Congestive Heart Failure Inclusion Criteria At DC or during hospital stay patient has or had the following: CHF DIAGNOSIS No Discharge Core Measures Meds if any: Prescribed or Continued at Discharge Meds if any: NOT Prescribed or Continued at Discharge Cerebrovascular accident Inclusion Criteria At DC or during hospital stay patient has or had the following: CVA/TIA Diagnosis No Discharge Core Measures Meds if any: Prescribed or Continued at Discharge Meds if any: NOT Prescribed or Continued at Discharge Venous thromboembolism Inclusion Criteria VTE Diagnosis No VTE Type NONE VTE Confirmed by (Test) NONE Discharge Core Measures - Per Current guidelines, there needs to be overlap - treatment for the first 5 days of Warfarin therapy. - If discharged on Warfarin prior to 5 days of - overlap therapy, the patient will need to be - assessed for post discharge needs including - *Post discharge parental anticoagulation - *Warfarin and/or parental anticoagulation education - *Follow up date to check INR post discharge At least 5 days overlap therapy as Inpatient No Meds if any: Prescribed or Continued at Discharge Note: Overlap Therapy is Warfarin and Anticoagulant Meds if any: NOT Prescribed or Continued at Discharge
[2017-01-28 10:48] VITALS: BP 178/60
--- NOTE | 2017-01-28 11:54 | PN- Att Addend ---
Attending Addendum Attending Brief Note I have personally seen and examined this patient. I have personally reviewed all relevant imaging and laboratory data. I have discussed the case with the care team. The patient was admitted the to observation for exertional shortness of breath which she says has been present over the last 2 months. She has had episodes like this in the past without obvious cardiac etiology. 1. Chronic intermittent exertional dyspnea often exacerbated by her tremors 2. Hx of chronic tremors and dysarthria 3. 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 History of pulmonary embolism with therapeutic INR and no evidence of recurrent PE by CTA 5. History of breast cancer 6. Hypertension I had an extensive conversation with the patient today. She has noticed some exacerbation of her chronic exertional dyspnea over the last 2 months. She has no evidence of acute coronary syndrome or decompensated congestive heart failure. No evidence of pneumonia. A CT scan showed some atelectasis and some breast scarring without evidence of recurrent pulmonary embolism. She is not tachycardic and not requiring supplemental oxygen. 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 She has no evidence of symptomatic bradycardia at this time. She is having no difficulty with ambulation; she walks with a cane which is also not new for her. At this time her clinical status is stable and no additional inpatient testing is required. We will plan for repeat transthoracic echocardiogram and stress testing in my office in the future. She will also follow-up with her manufacturing engineer assembly for additional pulmonary testing given her symptoms. It is not clear if she had any recent PFTs but she was being planned for a sleep apnea evaluation. She will return to the hospital via 911 if any progression or new symptoms. She is instructed to follow-up in my office as well as with her PCP and pulmonology within one week of discharge. Plan for additional titration of blood pressure medicine in my office as needed. Shlomo Vanessa MD [facility]
--- NOTE | 2017-01-28 15:45 | Discharge Summary ---
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 Patient was admitted on telemetry floor and following issues were addressed Problem #1 worsening shortness of breath which is present for a couple of months but in the setting of history of pulmonary embolism and history of breast cancer but would embolism was ruled out by CTA. -Chest x-ray was negative for any evidence of pulmonary congestion and acute CHF exacerbation was also ruled out -Acute coronary syndrome was also ruled out as first 3 sets of troponins were negative and EKG was not evident for any acute ischemic changes. -Patient was also evaluated by cardiology Marquise aVnessa MD and patient would need outpatient cardiac workup including stress test later and her echocardiogram will be done as outpatient as well. As she does not have any acute cardiac/pulmonary pathology we will discharge patient home today and she will follow up with cardiology in a week -As patient had underlying COPD and on bronchodilators her shortness of breath could be attributed by this. Patient was seen by her payroll auditor a week ago and he wants cardiac evaluation. We will send patient back to payroll auditor for further workup including pulmonary function testing near future. -At this point as patient has chronic tremors and is affecting her respiratory status and patient gets more short of breath with continuous worsening essential tremors. Problem #2 history of hypertension Patient's systolic blood pressure was higher during hospital stay but she is on reasonable antihypertensives and will send her home on her current antihypertensives and she will follow-up with cardiology in 1 week. Problem #3 history of pulmonary embolism on Coumadin New pulmonary embolism was ruled out and as her INR is therapeutic we will send her on current dose of Coumadin Problem #4 history of diabetes We will send patient home on her home dose of insulin Pharmacological DVT prophylaxis with Coumadin Heart healthy diet Patient is full code Complications: None Allergies: Coded Allergies: Sulfa (Sulfonamide Antibiotics) (Severe, ANAPHYLAXIS 04/05/16) STATINS (BAD REAXCTION 01/27/17) YUKO Inhibitors (Intermediate, COUGH 04/05/16) Significant Procedures: SERVICE DATE: 01/27/17 EXAM TYPE: CAT - CTA CHEST-PULMONARY EMBOLISM EXAMINATION: CT ANGIOGRAM OF THE CHEST WITH AND WITHOUT CONTRAST (CT PULMONARY ANGIOGRAM FOR PE) CLINICAL INFORMATION: Reason for Study: Presumptive Dx: PE; Signs Symptoms: SOB COMPARISON: 08/15/2015 TECHNIQUE: Prior to contrast administration, noncontrast localization images were obtained. Subsequently, multidetector volumetric imaging was performed from the thoracic inlet to below the diaphragms following the administration of 72 mL Optiray 350 intravenous contrast. No contrast reaction reported. Sagittal, coronal, and MIP oblique sagittal reformatted images were obtained on the CT workstation, uploaded to PACS, and reviewed. Total exam dose-length product 503.63 mGy-cm. FINDINGS: QUALITY OF STUDY/CONTRAST BOLUS: Satisfactory PULMONARY ARTERIES: No central or segmental pulmonary emboli. LUNG: Redemonstrated subpleural curvilinear opacity in the medial right lower lobe is suspected to reflect atelectasis. No additional consolidation is seen bilaterally. There is a subpleural 3 mL pulmonary nodule in the right middle lobe on image 260/443, unchanged from prior and likely benign. PLEURA: No pleural effusion or pneumothorax. MEDIASTINUM: Partially calcified right thyroid lobe nodule is noted. There are subcentimeter mediastinal lymph nodes within the range of normal variation. Cardiac size is within normal limits; no pericardial effusion. Coronary artery calcifications are present. No evidence of septal bowing or right heart strain. There is atherosclerotic calcification along the aorta. There is suggestion of a small hiatal hernia. CHEST WALL/AXILLA: There is a partially calcified right upper breast density with overlying skin retraction which appears increased from 08/15/2015. No axillary lymphadenopathy is present. OSSEOUS STRUCTURES: Degenerative changes are noted in the spine. There are subacute appearing fractures of the anterior right fifth and sixth ribs. UPPER ABDOMEN: There is a left upper pole renal cyst measuring up to 1.6 cm in diameter. No reflux of contrast into the hepatic veins to suggest elevated right heart pressures. IMPRESSION: 1. No pulmonary embolus identified. 2. Partially calcified right upper breast density, with increased overlying skin retraction since 08/15/2015. Clinical correlation is recommended along with correlation with dedicated breast imaging, as this could reflect post surgical changes/scarring, though underlying malignancy cannot be excluded. 3. Right thyroid nodule, not fully assessed on this exam. If clinically warranted, this may be further assessed with follow-up ultrasound. 4. Subacute appearing fractures of the anterior right fifth and sixth ribs. VTE: negative Pertinent Lab Results: SERVICE DATE: 01/27/17 EXAM TYPE: RAD - XRY-PORTABLE CHEST XRAY EXAMINATION: XR PORTABLE CHEST CLINICAL INFORMATION: Dyspnea. Chest pain with exertion. COMPARISON: Chest x-ray 08/14/2015. Dictated report only. Images not available for review. TECHNIQUE: Portable frontal view of the chest was obtained. 5:30 PM. FINDINGS: Lungs are clear. No pulmonary vascular congestion. No infiltrate or pleural effusion. The heart size is normal. The cardiac and mediastinal contours are normal. There are calcifications of the thoracic aorta. There are multilevel degenerative changes of dorsal spine. IMPRESSION: No acute abnormality of the chest. 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 Discharge Disposition: home or self care Discharge Instructions General Discharge Information Code Status: Full Code Patient's Diet: Heart healthy diet Patient's Activity: As tolerated Follow-Up Instructions/Appts: Please follow-up with her primary care physician in one week of discharge Please follow-up with Marquise Vanessa MD in 1 week of discharge in his office and further cardiology workup will be planned as outpatient Please follow-up with your payroll auditor in 1 week of discharge for further pulmonary evaluation including pulmonary function test Medications at Discharge Discharge Medications: Continue taking these medications: Insulin Lispro (Humalog) 100 UNIT/ML CARTRIDGE 2 Units Inject into fatty tissue 3 TIMES DAILY BEFORE MEALS Comments: NOT GIVEN Insulin Glargine,Hum.rec.anlog (Lantus Solostar) 100 UNIT/1 ML INSULN.PEN 26 Unit Inject into fatty tissue Every Morning Comments: Last Taken: 01/28/17 Time: 1030 AM Exenatide (Byetta) 10MCG/0.04 PEN.INJCTR 10 Milligram Inject into fatty tissue TWICE DAILY Comments: NOT GIVEN Valsartan (Diovan) 320 MG TABLET 1 Tablet ORAL DAILY Comments: NOT GIVEN Potassium Chloride (K-Tab ER) 20 MEQ TABLET.ER 1 Tablet ORAL DAILY Comments: NOT GIVEN Cholecalciferol (Vitamin D3) (Vitamin D) 2,000 UNIT TABLET 1 Tablet ORAL DAILY Comments: NOT GIVEN Indapamide (Indapamide) 2.5 MG TABLET 1 Tablet ORAL DAILY Comments: Last Taken: 01/28/17 Time: 1045 AM [place]-3 Acid Ethyl Esters (Lovaza) 1 GRAM CAPSULE 1 Capsule ORAL TWICE DAILY Comments: Last Taken: 01/28/17 Time: 1040 AM Warfarin Sodium (Coumadin) 3 MG TABLET 1 Tablet ORAL 5 PM Comments: NOT GIVEN Hydralazine HCl (Hydralazine HCl) 25 MG TABLET 1 Tablet ORAL THREE TIMES DAILY Comments: Last Taken: 01/28/17 Time: 530 AM Amlodipine Besylate (Amlodipine Besylate) 5 MG TABLET 1 Tablet ORAL TWICE DAILY Qty = 90 Comments: Last Taken: 01/28/17 Time: 1045 AM Isosorbide Mononitrate (Isosorbide Mononitrate ER) 60 MG TAB.ER.24H 1 Tablet ORAL TWICE DAILY Qty = 180 Comments: Last Taken: 01/28/17 Time: 1050 AM Montelukast Sodium (Montelukast Sodium) 10 MG TABLET 1 Tablet ORAL DAILY Qty = 90 Comments: NOT GIVEN Fenofibrate (Fenofibrate) 150 MG CAPSULE 1 Capsule ORAL Every other day Qty = 90 Comments: NOT GIVEN Clonidine HCl (Clonidine HCl) 0.2 MG TABLET 1 Tablet ORAL TAKE AT BEDTIME Qty = 90 Comments: NOT GIVEN Insulin Glargine,Hum.rec.anlog (Lantus Solostar) 100 UNIT/ML (3 ML) INSULN.PEN 2 Units Inject into fatty tissue Every night Comments: NOT GIVEN Gabapentin (Gabapentin) 400 MG CAPSULE 1 Capsule ORAL TAKE AT BEDTIME Comments: Last Taken: 01/27/17 Time: 11:15 PM Copies To: DOC ULLOA,HASMUKH Attending MD Review Statement Documenting Attending: JOSE ULLOA,MARQUISE
== END 2017-01-28 12:05 | DRG 204 ==
LOC: ERH 16:45 → 1NO 18:29 → ERHI 18:29 → ENRESERV 19:50 → 1NO 20:57 → ENPENDDIS 01-28 10:57 → 1NO 01-28 12:05
PROVIDERS: Physician Assistant; Student in an Organized Health Care Education/Training Program; ADMIT Internal Medicine Cardiovascular Disease
DX: R06.02 Shortness of breath (principal); I44.1 Atrioventricular block, second degree; J44.9 Chronic obstructive pulmonary disease, unspecified; E11.9 Type 2 diabetes mellitus without complications; I10 Essential (primary) hypertension; Z86.711 Personal history of pulmonary embolism; Z79.01 Long term (current) use of anticoagulants; G25.0 Essential tremor; K57.90 Diverticulosis of intestine, part unspecified, without perforation or abscess without bleeding; K58.9 Irritable bowel syndrome, unspecified; Z85.3 Personal history of malignant neoplasm of breast; Z79.4 Long term (current) use of insulin; E78.5 Hyperlipidemia, unspecified
CPT/HCPCS: 1NP; 82436; 93005; 93010; J1644; J3490

== ENCOUNTER 2018-01-18 10:44 | Inpatient (IN) | payer OTHER, MEDICARE ==
[~2018-01-18] VITALS: Ht 149.9 cm; Wt 97.2 kg
[~2018-01-18 10:44] MED LIST changes: +CLONIDINE HCL0.2 M1 PO; +FENOFIBRATE PO; +GABAPENTIN400 M2 PO; +ISOSORBIDE MONO60 M1 PO; +MONTELUKAST SOD10 M1 PO; +NEURONTIN300 M1 PO
--- NOTE | 2018-01-18 11:08 | ED NEURO DEFICIT/STROKE ---
History of Present Illness General Chief Complaint: Neuro Symptoms/ Deficit Stated Complaint: SLURRING, WEAKNESS, NOT RESPONDING PROPERLY Source: patient Exam Limitations: no limitations Vital Signs & Intake/Output Vital Signs & Intake/Output Vital Signs Date Time Temp Pulse Resp B/P B/P Pulse O2 O2 Flow FiO2 Mean Ox Delivery Rate 01/19 0702 96.6 49 20 190/50 93 Room Air 01/19 0636 46 180/60 01/19 0430 98.2 52 210/50 01/19 0346 48 240/70 01/19 0028 170/70 01/19 0000 Room Air 01/18 2304 56 170/100 01/18 2304 50 170/100 01/18 2242 98.1 53 18 170/100 96 01/18 2051 40 180/100 01/18 1827 97.8 54 19 186/110 01/18 1611 97.8 54 19 186/110 97 01/18 1543 49 200/62 01/18 1530 97.7 49 18 208/68 98 Room Air 01/18 1442 97.6 47 18 188/72 96 Room Air 01/18 1246 98.1 01/18 1139 56 20 107/91 98 Room Air Room Air 01/18 1129 98 Room Air Room Air 01/18 1057 52 24 220/100 98 Room Air Room Air 01/18 1047 83 16 120/83 98 Room Air ED Intake and Output 01/19 0000 01/18 1200 Intake Total 880 100 Output Total 450 Balance 430 100 Intake, IV 100 Intake, Oral 880 Number 1 Bowel Movements Output, Urine 450 Patient 210 lb Weight Weight Reported by Patient Measurement Method Allergies Coded Allergies: Sulfa (Sulfonamide Antibiotics) (Severe, ANAPHYLAXIS 04/05/16) STATINS (BAD REAXCTION 01/27/17) YUKO Inhibitors (Intermediate, COUGH 04/05/16) Reconcile Medications Amlodipine Besylate 5 MG TABLET 1 TAB PO DAILY HEART (Reported) Cholecalciferol (Vitamin D3) (Vitamin D) 2,000 UNIT TABLET 1 TAB PO DAILY SUPPLEMENT (Reported) Cyanocobalamin (Vitamin B-12) 1,000 MCG TABLET 1 TAB PO DAILY VITAMIN SUPPORT (Reported) Fenofibrate 150 MG CAPSULE 1 CAP PO Q48 CHOLESTEROL/TRIGLYCERIDES (Reported) Gabapentin 400 MG CAPSULE 1 CAP PO QPM DYSARTHRIA (Reported) Hydralazine HCl 25 MG TABLET 1 TAB PO 4 TIMES/DAY HEART (Reported) Indapamide 2.5 MG TABLET 1 TAB PO DAILY BP (Reported) Insulin Detemir (Levemir) (Unknown Strength) VIAL (Unknown Dose) DM (Reported ) Isosorbide Mononitrate (Isosorbide Mononitrate ER) 60 MG TAB.ER.24H 1 TAB PO TUES THURS SAT HEART (Reported) Liraglutide (Victoza 3-Sam) 0.6 MG/0.1 ML (18 MG/3 ML) PEN.INJCTR 0.6 MG SC DAILY DIABETES (Reported) Metoprolol Succ XL (Toprol XL) 25 MG TAB 0.5 TAB PO QPM HTN (Reported) Montelukast Sodium 10 MG TABLET 1 TAB PO DAILY ALLERGIES/RESPIRATORY ( Reported) [place]-3 Acid Ethyl Esters (Lovaza) 1 GRAM CAPSULE 1 CAP PO BID CHOLESTEROL ( Reported) Potassium Chloride (K-Tab ER) 20 MEQ TABLET.ER 1 TAB PO DAILY SUPPLEMENT ( Reported) Valsartan (Diovan) 320 MG TABLET 1 TAB PO DAILY HEART/BP (Reported) Warfarin Sodium (Coumadin) 3 MG TABLET 1 TAB PO TUES THURS SAT BLOOD THINNER (Reported) Warfarin Sodium (Coumadin) 3 MG TABLET 0.5 TAB PO Thursday PE ( Reported) Triage Note: PT TO ED WITH SUDDEN ONSET WEAKNESS AND AMS AT 1020. HAS HX OF DM, SUGAR WAS 235 BY FAMILY. PT PRESENT ALERT TO NAME. NOTED WITH RT SIDED WEAKNESS, UNABLE TO FOLLOW SOME COMMANDS. Triage Nurses Notes Reviewed? yes HPI: Patient presents for evaluation of strokelike symptoms that began at about 1020 this morning in the presence of her daughter while running errands. The daughter states that while the patient was in the car, she "lost her words" and seemed to be altered. She gave her some juice and took the patient home to check a blood sugar level fearing hypoglycemia. The blood sugar level was over 200. At that point she brought the patient to the emergency department for evaluation. She has been evaluated recently for tremors and does have a history of hypertension and diabetes. She takes Coumadin for prior history of DVT and had an INR checked this morning that was 1.8 according to her daughter. Past History Travel History Traveled to [place] past 21 day No Medical History Any Pertinent Medical History? see below for history Neurological: ADULT TREMORS EENT: NONE Cardiovascular: hypertension, hyperlipidemia Respiratory: pulmonary embolism Gastrointestinal: diverticulitis, irritable bowel syndrome, peptic ulcer disease , KIDNEY STONES Hepatic: NONE Renal: NONE Musculoskeletal: NONE Psychiatric: NONE Endocrine: diabetes Blood Disorders: PE Cancer(s): breast cancer VEGETABLE GRADER/Reproductive: NONE History of MRSA: No History of VRE: No History of CDIFF: No Tetanus Vaccine: 12/28/11 Surgical History Surgical History: appendectomy, cholecystectomy, hernia repair-incisional, LUMPECTOMY BL CARPAL TUNNEL R ROTATOR CUFF GALLBLADDER CATARACTS BL Psychosocial History Who do you live with Daughter Services at Home None What is your primary language Belarusian Tobacco Use: Never used Family History Hx Contributory? No Review of Systems Review of Systems Constitutional: Reports: no symptoms. EENTM: Reports: no symptoms. Respiratory: Reports: no symptoms. Cardiovascular: Reports: no symptoms. GI: Reports: no symptoms. Genitourinary: Reports: no symptoms. Musculoskeletal: Reports: no symptoms. Skin: Reports: no symptoms. Neurological/Psychological: Reports: see HPI. Hematologic/Endocrine: Reports: no symptoms. Immunologic/Allergic: Reports: no symptoms. All Other Systems: Reviewed and Negative Physical Exam Physical Exam General Appearance: see below Cranial Nerves: see below Comments: Gen.: Well-nourished, well-developed, no acute respiratory distress. Head: Normocephalic, atraumatic. Eyes: Normal inspection bilaterally Ears: Normal inspection bilaterally Nose: Normal inspection Throat/mouth : Moist mucosa Neck: Supple, full range of motion, no goiter Heart: Regular rate and rhythm, no murmurs rubs or gallops Lungs: Clear to auscultation bilaterally with normal air entry Chest: Nontender Back: Normal range of motion Abdomen: Soft, nontender, nondistended, normal bowel sounds Extremities: Normal range of motion grossly, equal radial pulses, no cyanosis clubbing or edema Neurologic: Cranial nerves: Other than an expressive aphasia no gross deficit noted, speech is dysarthric, gait not assessed Skin: warm and dry Psychiatric: Calm, cooperative, no apparent delusions or hallucinations Core Measures CVA/TIA Diagnosis: Yes NIH Stroke Scale NIH Stroke Scale Response Value Level of Consciousness alert 0 LOC Commands obeys one correctly 1 Facial Paresis normal 0 Motor Arm - Left untestable 0 Motor Arm - Right untestable 0 Motor Leg - Left untestable 0 Motor Leg - Right untestable 0 Best Language severe aphasia 2 Dysarthria near to unintelligible 2 Total 5 Swallow Evaluation Pass Swallow eval date 01/18/18 Sepsis Present: No Sepsis Focused Exam Completed? No Progress Differential Diagnosis: electrolyte imbalance, hypoglycemia, intracranial Hem., intracranial mass/tumor, seizure disorder, stroke, vertebrobasilar insuff. Plan of Care: Orders Procedure Date/time Status PROTHROMBIN TIME 01/19 0600 Active MAGNESIUM 01/19 0600 Active CBC WITHOUT DIFFERENTIAL 01/19 0600 Active BASIC ELECTROLYTES PLUS BUN&CR 01/19 0600 Active MRI-HEAD W/O JENNIFER 01/19 UNK Active Consistent Carbohydrate 1 01/18 D Active TROPONIN LEVEL 01/18 2300 Complete EKG 01/18 2300 Active Weight 01/18 1835 Active Vital Signs 01/18 1835 Active Teach/Educate 01/18 183 Active Pain Treatment and Response 01/18 183 Active Nutritional Intake, Monitor 01/18 183 Active Isolation 01/18 1835 Active Intake & Output 01/18 183 Active Patient Care Conference 01/18 1835 Active Activity/Ambulation 01/18 1835 Active TROPONIN LEVEL 01/18 1700 Complete EKG 01/18 1700 Active ECHOCARDIOGRAM 01/18 1642 Active Pathway - chart 01/18 1631 Active Code Status 01/18 1631 Active Patient Data 01/18 1434 Active Misc Message 01/18 1426 Active ED Holding Orders 01/18 1426 Active Admit to inpatient 01/18 1426 Active Vital Signs 01/18 1426 Active Code Status 01/18 1426 Complete FingerStick- Glucose 01/18 1404 Active Intake & Output 01/18 1200 Active TROPONIN LEVEL 01/18 1115 Complete LIPID PANEL 01/18 1115 Complete PARTIAL THROMBOPLASTIN TIME 01/18 1108 Complete PROTHROMBIN TIME 01/18 1108 Complete COMPREHENSIVE METABOLIC PANEL 01/18 1108 Complete CBC WITHOUT DIFFERENTIAL 01/18 1108 Complete EKG 01/18 1108 Active NIH Stroke Scale 01/[address]-[id number] DOPPLER 01/18 UNK Active House Staff 01/18 UNK Active Lab Add-on Test 01/18 UNK Active VTE Mechanical Prophylaxis 01/18 UNK Active Precautions 01/18 UNK Active [place] Coma Scale 01/18 UNK Active FingerStick- Glucose 01/18 UNK Complete Elevate 01/18 UNK Active Activity/Ambulation 01/18 UNK Active Current Medications Sig/Roshan Start time Last Medication Dose Stop Time Status Admin Amlodipine Besylate 5 MG DAILY 01/19 900 AC (Norvasc) Aspirin 81 MG DAILY 01/19 900 AC (Aspirin) Cholecalciferol 2,000 IU DAILY 01/19 900 AC (Vitamin D) Cyanocobalamin 1,000 MCG DAILY 01/19 900 AC (Vitamin B12) Fenofibrate 145 MG DAILY 01/19 900 AC (Tricor) Losartan Potassium 50 MG DAILY 01/19 900 AC (Cozaar) Montelukast Sodium 10 MG DAILY 01/19 900 AC (Singulair) Potassium Chloride 20 MEQ DAILY 01/19 900 AC (K-Dur) Isosorbide 60 MG BID 01/18 2300 AC 01/18 Mononitrate 230 (Imdur) Fish Oil 1,050 MG BID 01/18 2100 AC 01/18 ([place]-3) 2050 Gabapentin 400 MG QPM 01/18 2100 AC 01/18 (Neurontin) 2050 Metoprolol Succinate 12.5 MG QPM 01/18 2100 CAN (Toprol XL) Atorvastatin Calcium 80 MG 1700 01/18 170 AC (Lipitor) Hydralazine HCl 25 MG 4 TIMES/DAY 01/18 1700 AC 01/18 (Apresoline) 2050 Acetaminophen 650 MG Q6P PRN 01/18 163 AC (Tylenol) Laboratory Tests 01/18/18 2300: Troponin I 0.04 01/18/18 1730: Troponin I 0.03 01/18/18 1115: Anion Gap 13, Estimated GFR 43 L, BUN/Creatinine Ratio 35.0 H, Glucose 201 H, Calcium 10.0, Total Bilirubin 0.7, AST 23, ALT 26, Alkaline Phosphatase 36, Troponin I 0.04, Total Protein 6.8, Albumin 3.9, Globulin 2.9, Albumin/Globulin Ratio 1.3, Triglycerides 181 H, Cholesterol 131, LDL Cholesterol, Calc 65, HDL Cholesterol 30 L, Cholesterol/HDL Ratio 4, PT 19.8 H, INR 1.81 H, APTT 33, CBC w Diff NO MAN DIFF REQ, RBC 4.37, MCV 89.7, MCH 30.0, MCHC 33.5, RDW 13.9, MPV 8.1, Gran % 70.3, Lymphocytes % 20.4 L, Monocytes % 6.6, Eosinophils % 2.2, Basophils % 0.5, Absolute Granulocytes 6.5, Absolute Lymphocytes 1.9, Absolute Monocytes 0.6, Absolute Eosinophils 0.2, Absolute Basophils 0 Initial ED EKG: normal axis (mobitz 1), rate (45) Prior EKG: changed (1st deg hb on prior) Comments: 01/18/2018 11:04:52 AM D/W DR LOCK. Given that the patient is currently taking warfarin, she is not a candidate for TPA. He feels that if the initial CAT scan is negative a CTA should be performed for the possibility of endovascular intervention. 12:13pm verbal ct report: no acute findings, white matter ischemic changes. atropy. 01/18/2018 1:19:17 PM per radiologist, no acute occlusions. 01/18/2018 1:25:44 PM patient and family updated. She states that she feels she has a "sinus headache" that she has suffered from time to time. She has been treated with IV acetaminophen for this and fortunately her aphasia is resolving. Departure Departure Disposition: STILL A PATIENT Condition: Stable Clinical Impression Primary Impression: CVA (cerebral vascular accident) Qualifiers: CVA mechanism: unspecified Qualified Code: I63.9 - Cerebral infarction, unspecified Referrals: Grady Wilkerson MD (PCP/Family) Departure Forms: Customer Survey General Discharge Information Admission Note Spoke With: Lorne ULLOA,Saloni Hazel Documentation of Exam: Documentation of any treatments & extenuating circumstances including Concerns Regarding Discharge (functional status, medication knowledge or non-compliance, living conditions, etc.) that warrant an admission rather than observation: Patient presents for evaluation of altered mental status and a dense expressive aphasia that occurred shortly prior to arrival. Patient's clinical presentation and physical examination are consistent with a CVA. Patient has multiple risk factors for cerebrovascular disease. I do not feel she is a good candidate for outpatient management as the patient has had difficulty in following commands during physical examination and I feel she would have great difficulty in compliance with outpatient treatment. She will could potentially return in worse clinical condition including injury secondary to falling or aspiration. I feel she requires hospitalization for investigation for possible reversible causes of stroke including carotid disease and cardioembolic phenomenon. Neurology consultation should be obtained the patient should be placed on a continuous panel monitor for the possibility of dysrhythmia. Medication should be reviewed and optimized. Physical therapy should also be consult for the possibility of physical or occupational therapy and short-term rehabilitation placement. I feel this patient will require a multiple day hospitalization.
[2018-01-18] MEDS ORDERED: VICTOZA 3-0.6 MG/0.1 SC (11:30)
[2018-01-18 11:33] LABS: ABSOLUTE BASOPHIL COUNT 0 /CUMM (0.0-0.2); ABSOLUTE EOSINOPHIL COUNT 0.2 /CUMM (0.0-0.7); ABSOLUTE GRANULOCYTE CT 6.5 /CUMM (1.4-6.5); ABSOLUTE LYMPH COUNT 1.9 /CUMM (1.2-3.4); ABSOLUTE MONOCYTE COUNT 0.6 /CUMM (0.10-0.60); BASOPHIL % 0.5 % (0.0-2.0); EOSINOPHIL % 2.2 % (0-5); GRANULOCYTE % 70.3 % (42.2-75.2); HEMATOCRIT 39.2 % (37-47); MEAN CORPUSCULAR HGB CONC 33.5 G/DL (33.0-37.0); MEAN CORPUSCULAR VOLUME 89.7 FL (81.0-99.0); MEAN PLATELET VOLUME 8.1 FL (7.4-10.4); PLATELET COUNT 276 /CUMM (130-400); RBC DISTRIBUTION WIDTH 13.9 % (11.5-14.5); RED BLOOD CELL CT 4.37 /CUMM (4.20-5.40); WHITE BLOOD CELL COUNT 9.2 /CUMM (4.8-10.8)
[2018-01-18] MEDS ORDERED: VITAMIN B-121000 MC3 PO (11:33)
[2018-01-18 11:45] LABS: PT 19.8 SEC (9.4-12.5); PTT 33 SEC (25-37)
--- NOTE | 2018-01-18 12:12 | CT SCAN REPORT ---
EXAMINATION: CT HEAD WITHOUT CONTRAST CLINICAL INFORMATION: Altered mental status COMPARISON: Multiple prior CT scans of the head most recent dated 09/06/2015 TECHNIQUE: Contiguous axial imaging was performed from the skull base to vertex without intravenous administration of contrast. DLP: 619 mGy-cm FINDINGS: There is no evidence of acute intracranial hemorrhage or territorial infarction. No abnormal mass effect or midline shift is seen. Diffuse microvascular ischemic changes are again noted with small lacunar infarct in the left basal ganglia. No new areas of acute territorial infarction are appreciated. Diffuse prominence of ventricles sulci and cisterns consistent with volume loss is unchanged. No extra-axial fluid collections are appreciated. No acute bony abnormality. The mastoid air cells and visualized portions of the paranasal sinuses are clear. IMPRESSION: No acute intracranial abnormality. Diffuse atrophy and microvascular ischemic changes are similar to the prior study with no new finding
--- NOTE | 2018-01-18 13:23 | CT SCAN REPORT ---
EXAMINATION: CT ANGIOGRAM HEAD CLINICAL INFORMATION: Bita farley. COMPARISON: Head CT performed earlier the same day. Brain MRI 09/06/2015. TECHNIQUE: Test bolus sequences followed by intravenous administration 95 mL of Optiray 320 intravenous contrast. Helical imaging was performed in the axial plane from the mediastinum to the skull vertex. Delayed postcontrast imaging of the head was also performed. The data was processed at the wood technologist's workstation for generation of MIP sequences. Three-dimensional volume rendered reformatted images were also generated at an offline 3-D workstation. Stenoses are graded per criteria similar to NASCET. FINDINGS: Calcific atherosclerotic disease results in a moderate stenosis of the proximal intradural right vertebral artery. Vertebrobasilar system is otherwise widely patent. There are severe stenoses involving the P2 posterior cerebral artery segments bilaterally. There is atherosclerotic calcification throughout the carotid siphons bilaterally which remain widely patent. The anterior middle cerebral artery complexes remain widely patent. Imaged cervical internal carotid arteries and cervical vertebral arteries are widely patent. There is no pathologic intracranial enhancement. Stable appearing chronic lacunar infarct within the left putamen. Global cerebral volume loss and chronic microangiopathy. There is no intracranial hemorrhage, hydrocephalus, extra-axial surface collection, midline shift, or other herniation pattern. Perkins to white matter differentiation is diffusely maintained without evidence of an evolved acute territorial infarct. The basilar cisterns are preserved. No significant soft tissue abnormality. No acute osseous abnormality. The paranasal sinuses and the mastoid air cells are well-aerated. Spondylitic changes within the partially imaged upper cervical spine. IMPRESSION: - No acute arterial occlusions intracranially. 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 - Stable chronic findings including global cerebral volume loss, chronic microangiopathy, and a chronic left basal ganglia lacunar infarct. Findings discussed with Dr. Pettit at 1:20 PM on 01/18/2018.
--- NOTE | 2018-01-18 14:42 | Admission Certification ---
Admission Certification Certification Statement - As attending physician, I certify that at the time of - admission, based on clinical presentation, severity of - symptoms, need for further diagnostic testing and - therapeutic interventions, and risk of adverse outcomes - without in-hospital treatment, in my clinical assessment, - this patient requires an acute hospital stay for a minimum - of two nights or longer. I have also considered psychsocial - factors such as support system, advanced age, financial - issues, cognitive issues, and failed out-patient treatments, - past re-admission history, safety of patient, and lack of - compliance as applicable. Specific rationale supporting this admission is: Altered mental status and spaced difficulty
[2018-01-18] MEDS ORDERED: COUMADIN3 M1 PO (14:56)
[2018-01-18] MEDS ORDERED: LEVEMIR100 UNIT/1 SC (14:57)
--- NOTE | 2018-01-18 14:58 | PN- Att Addend ---
Attending Addendum Attending Brief Note Patient seen and examined in the emergency room. Plan of care discussed with the medical team and the patient. Available lab work and radiology test reports were reviewed. Patient had no family members at the bedside. History was difficult to obtain the patient. Patient states that she is here because of tremors. Review of records from emergency room shows a patient was brought in by daughter for having the space difficulty and having the argument status. While riding in a car door today patient apparently lost her words. Daughter checked her Accu-Chek but it was 200. As per nursing staff patient the appears somewhat better compared to when she initially arrived to emergency room. As per history there was also suggestion of right sided weakness. Please see inconsistent physical for details of medications allergies family history and social history. Exam: General: Patient awake but appears confused and she is only partially oriented and appears without any distress; she has visible intention tremors CVS: S1 plus S2 without any murmur or gallops Chest: Few scattered crepitation without any wheeze. There is no respiratory distress. Abdomen: Soft non-tender, bowel sound present, no guarding or rebound PRODUCTION TEAM ADVISOR: Awake but confused and only partially oriented; difficult to examine neuro system given her underlying tremors. She seems to follow commands. Pupils are both equal and reactive. Lower extremity shows weakness of for 3 over 5 right laterally. Upper extremities power is 4 over 5 bilaterally Extremities: No edema; no clubbing or cyanosis noted Assessment * Difficulty with speech, suspected stroke * History of hypertension uncontrolled with hypertensive urgency * Hyperlipidemia * History diabetes * History of breast cancer * Intention tremors * Chronic renal failure stage III b, creatinine close to baseline Plan * Admit to telemetry * Aspirate from his gum daily Lipitor * Hold Coumadin for now * Neuro consult * Patient likely will need MRI to rule out new stroke given her symptoms * PT evaluation * Due to prophylaxis * Continue antihypertensive regimen and monitor BP closely Current Medications Sig/Roshan Start time Last Medication Dose Route Stop Time Status Admin Acetaminophen 0 .STK-MED ONE 01/18 1201 DC IV Acetaminophen 1,000 MG ONCE ONE 01/18 1200 DC 01/18 N/A 1 UNIT IV 01/18 1214 1200 Aspirin 0 .STK-MED ONE 01/18 1441 DC PO Aspirin 0 .STK-MED ONE 01/18 1435 DC PO Laboratory Tests 01/18/18 1115: Anion Gap 13, Estimated GFR 43 L, BUN/Creatinine Ratio 35.0 H, Glucose 201 H, Calcium 10.0, Total Bilirubin 0.7, AST 23, ALT 26, Alkaline Phosphatase 36, Total Protein 6.8, Albumin 3.9, Globulin 2.9, Albumin/Globulin Ratio 1.3, PT 19.8 H, INR 1.81 H, APTT 33, CBC w Diff NO MAN DIFF REQ, RBC 4.37, MCV 89.7, MCH 30.0, MCHC 33.5, RDW 13.9, MPV 8.1, Gran % 70.3, Lymphocytes % 20.4 L, Monocytes % 6.6, Eosinophils % 2.2, Basophils % 0.5, Absolute Granulocytes 6.5, Absolute Lymphocytes 1.9, Absolute Monocytes 0.6, Absolute Eosinophils 0.2, Absolute Basophils 0 Vital Signs Date Time Temp Pulse Resp B/P B/P Pulse O2 O2 Flow FiO2 Mean Ox Delivery Rate 01/18 1246 98.1 01/18 1139 56 20 107/91 98 Room Air Room Air 01/18 1129 98 Room Air Room Air 01/18 1057 52 24 220/100 98 Room Air Room Air 01/18 1047 83 16 120/83 98 Room Air Intake & Output 01/18 1600 01/18 0800 01/18 0000 Intake Total 100 Output Total Balance 100 Intake, IV 100
[2018-01-18] MEDS ORDERED: TOPROL XL25 M1 PO (14:59)
--- NOTE | 2018-01-18 15:56 | History & Physical ---
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 Collateral information was obtained from patients daughter Zoë and granddaughter Lorri whom were present during the interview. Patient was brought to her primary care providers office this morning and was driving around afterwards when around 10:20 AM she was noticed to be below her baseline. She was not able to find worse and was slurred her speech. She seemed to be confused and was not following commands. She has a reported facial droop with right sided weakness. For evaluation of these symptoms she was brought to the ED for evaluation. Stroke alert was called and case was discussed with neurologist Dr. Arias by the ED provider. Patient was determined not be be a candidate for tPa because of being on coumadin. Presently patient is seen to be awake and alert and oriented to person, place, and time. She has a new stutter to her speach but is otherwise fluent and following commands. She reports feeling "different" but denies any specific complaints. At baseline she is reportedly independent with ambulation, medication administration, and ADLs/IADLs. She lives alone in an in-law apartment attached to her daughters house. Review of Systems Otherwise she denies any headache, fever, chills, blurred / double vision, lightheadedness, dizziness, chest pain, palpitations, heart burn, cough, shortness of breath, nausea, vomiting, diarrhea. Objective Vital Signs -Temperature: 98.1 -Heart Rate: 52-83 -Respiratory Rate: 16-24 -Systolic BP: 107-220 -Diastolic BP: 83-91 -O2 Sat: 98% on room air Physical Exam -General: well developed, well nourished, elderly woman in no acute distress -HEENT: NCAT, PERRLA, EOMI, anicteric sclera, moist mucous membranes -Neck: Supple, no JVD, trachea midline, no accessory respiratory muscle use -Cardio: Normal S1/S2 w/o m/g/r; RRR -Pulm: CTA bilaterally -Abdomen: Soft, NT, ND, BS + -Neuro: Awake and alert, CN II-XII grossly intact, speech / sensation / coordination intact, face symmetric, strength 5/5 x4, no pronator drift, gait not assessed -Extremities: normal pulses, no edema, capillary refill < 2 seconds Labs / Imaging / Studies -CBC: WBC 9.2, Hemoglobin 13.1, Hematocrit 39.2, Platelet 276 -BMP: Na 138, K 4.4, Cl 102, CO2 23, BUN 42, Cr 1.2, Anion Gap 13, Glucose 201 -LFT: within normal limit -Misc: INR 1.81 -CT head without IV contrast: * No acute intracranial abnormality. Diffuse atrophy and microvascular ischemic changes are similar to the prior study with no new finding -CTA Head with IV contrast: - No acute arterial occlusions intracranially. 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 - Stable chronic findings including global cerebral volume loss, chronic microangiopathy, and a chronic left basal ganglia lacunar infarct. 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 Upon initial evaluation patient had significant neurologic deficits for which a stroke alert was called. Patient was not a candidate for tPa despite arriving within an acceptable window of time. CT head was negative for an acute intracranial bleed and CTA did not identify any significant embolus for endovascular intervention. Clinically patient appears to have had a transient ischemic attack. Carotid doppler and echocardiogram should be assessed and eventual MRI scan. Neurology is consulted for further evaluation. She is continued on aspirin, atorvastatin, and coumadin. On telemetry patient has a bradycardic rhythm. EKG demonstrates a wenkebach rhythm. She reportedly has a history of "heartblock" for which a pacemaker was reportedly discussed in the past. Patient was continued on her antihypertensive medication regimen. Case discussed with compensation director Dr. Vanessa. 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 -Essential tremor -Irritable bowel syndrome -Peripheral vascular disease -Nephrolithiasis -History of Breast Cancer -History of "Heart Block" Plan -Admit to telemetry -Telemetry monitoring -Fall / aspiration precautions -Elevate head of bed -Accuchecks TIDAC/HS with Novolog SSI -Neurochecks -Aspirin 81 mg PO Daily -Atorvastatin 80 mg PO Daily -Continue home meds: amlodipine, vitamin D, vitamin B12, gabapentin, hydralazine , metoprolol, montelukast, omega-3, potassium, valsartan -Hold metoprolol for bradycardia, restart as needed -Confirm dose of levemir with pharmacy -Neurology consult for acute stroke -Cardiology consult for high grade AV block -PT evaluation -Daily INR, dose coumadin -Echocardiogram -Carotid doppler -Check lipid panel -MRI Brain -Trend troponin / EKG until peak or three negative sets -Pain control with acetaminophen -Diabetic diet -DVT PPx with coumadin -DNR/DNI Allergies/Medications Allergies: Coded Allergies: Sulfa (Sulfonamide Antibiotics) (Severe, ANAPHYLAXIS 04/05/16) STATINS (BAD REAXCTION 01/27/17) YUKO Inhibitors (Intermediate, COUGH 04/05/16) Home Med list Amlodipine Besylate 5 MG TABLET 1 TAB PO DAILY HEART (Reported) Cholecalciferol (Vitamin D3) (Vitamin D) 2,000 UNIT TABLET 1 TAB PO DAILY SUPPLEMENT (Reported) Cyanocobalamin (Vitamin B-12) 1,000 MCG TABLET 1 TAB PO DAILY VITAMIN SUPPORT (Reported) Fenofibrate 150 MG CAPSULE 1 CAP PO Q48 CHOLESTEROL/TRIGLYCERIDES (Reported) Gabapentin 400 MG CAPSULE 1 CAP PO QPM DYSARTHRIA (Reported) Hydralazine HCl 25 MG TABLET 1 TAB PO 4 TIMES/DAY HEART (Reported) Indapamide 2.5 MG TABLET 1 TAB PO DAILY BP (Reported) Insulin Detemir (Levemir) (Unknown Strength) VIAL (Unknown Dose) DM (Reported ) Isosorbide Mononitrate (Isosorbide Mononitrate ER) 60 MG TAB.ER.24H 1 TAB PO TUES THURS SAT HEART (Reported) Liraglutide (Victoza 3-Sam) 0.6 MG/0.1 ML (18 MG/3 ML) PEN.INJCTR 0.6 MG SC DAILY DIABETES (Reported) Metoprolol Succ XL (Toprol XL) 25 MG TAB 0.5 TAB PO QPM HTN (Reported) Montelukast Sodium 10 MG TABLET 1 TAB PO DAILY ALLERGIES/RESPIRATORY ( Reported) Carlton-3 Acid Ethyl Esters (Lovaza) 1 GRAM CAPSULE 1 CAP PO BID CHOLESTEROL ( Reported) Potassium Chloride (K-Tab ER) 20 MEQ TABLET.ER 1 TAB PO DAILY SUPPLEMENT ( Reported) Valsartan (Diovan) 320 MG TABLET 1 TAB PO DAILY HEART/BP (Reported) Warfarin Sodium (Coumadin) 3 MG TABLET 1 TAB PO SAT BLOOD THINNER (Reported) Warfarin Sodium (Coumadin) 3 MG TABLET 0.5 TAB PO Thursday PE ( Reported) Past History Travel History Traveled to [place] past 21 day No Medical History Neurological: ADULT TREMORS EENT: NONE Cardiovascular: hypertension, hyperlipidemia Respiratory: pulmonary embolism Gastrointestinal: diverticulitis, irritable bowel syndrome, peptic ulcer disease , KIDNEY STONES Hepatic: NONE Renal: NONE Musculoskeletal: NONE Psychiatric: NONE Endocrine: diabetes Blood Disorders: PE Cancer(s): breast cancer STENCIL CUTTER/Reproductive: NONE History of MRSA: No History of VRE: No History of CDIFF: No Isolation History: Standard Tetanus Vaccine: 12/28/11 Surgical History Surgical History: appendectomy, cholecystectomy, hernia repair-incisional, LUMPECTOMY BL CARPAL TUNNEL R ROTATOR CUFF GALLBLADDER CATARACTS BL Past Family/Social History Psychosocial History Services at Home: None Power of Casualty Insurance Claim Adjuster/HCP? yes Name of POA/HCP: Her Daughter Functional Ability ADLs Independent: dressing, eating, toileting, bathing. Ambulation: cane Review of Systems Review of Systems Constitutional: Reports: see HPI. Exam & Diagnostic Data Last 24 Hrs of Vital Signs/I&O Vital Signs Date Time Temp Pulse Resp B/P B/P Pulse O2 O2 Flow FiO2 Mean Ox Delivery Rate 01/18 2051 40 180/100 01/18 1827 97.8 54 19 186/110 01/18 1611 97.8 54 19 186/110 97 01/18 1543 49 200/62 01/18 1530 97.7 49 18 208/68 98 Room Air 01/18 1442 97.6 47 18 188/72 96 Room Air 01/18 1246 98.1 01/18 1139 56 20 107/91 98 Room Air Room Air 01/18 1129 98 Room Air Room Air 01/18 1057 52 24 220/100 98 Room Air Room Air 01/18 1047 83 16 120/83 98 Room Air Intake & Output 01/18 1600 01/18 0800 04/23 0000 Intake Total 100 Output Total Balance 100 Intake, IV 100 Patient 90.718 kg Weight Weight Reported by Patient Measurement Method Assessment/Plan As Ranked By This Provider Problem List: 1. CVA (cerebral vascular accident) Qualifiers CVA mechanism: unspecified Qualified Code: I63.9 - Cerebral infarction, unspecified Core Measures/Misc (06/14) Acute Coronary Syndrome ACS Diagnosis: No Congestive Heart Failure Congestive Heart Failure Diagnosis No Cerebrovascular Accident CVA/TIA Diagnosis: Yes NIH Stroke Scale: Total 2 Date Last Known Well: 01/18/18 Time Last Known Well: 1020 Symptom Start Date: 01/18/18 Symptom Start Time: 1020 Reason tPA not ordered Medical Contraindication Swallow Evaluation Pass Current/Past Hx AFib/AFlutter No No Antithrombotic d/t Medical Contraindication VTE (View Protocol) VTE Risk Factors Age>40 No Mechanical VTE Prophylaxis d/t N/A MechProphylax Ordered No VTE Pharm Prophylaxis d/t NA PharmProphylax ordered Sepsis (View protocol) Sepsis Present: No
[2018-01-18 16:11] VITALS: BP 186/110
--- NOTE | 2018-01-18 16:13 | Cons- Neurology ---
General Information and HPI Consulting Request Date of Consult: 01/18/18 Requested By: Julio ULLOA,Liz History of Present Illness: 87 y.o female yesterday of shortness of breath and palpitations She seemed to be relatively asymptomatic this morning and had a visit with her physician Apparently no abnormalities detected on her examination at that time Shortly afterwards it was noted that she had difficulty with his speech and difficulty following commands There was no focal weakness there was some questionable facial asymmetry with the right side being down Speech difficulty remains for perhaps the next few hours It started to resolve in the emergency room There was a mild headache There was no head trauma or loss of consciousness Patient has a long history of tremor of voice and hands a glucose test at home which was 230 Patient at present time no symptoms No previous similar symptoms in the past Allergies/Medications Allergies: Coded Allergies: Sulfa (Sulfonamide Antibiotics) (Severe, ANAPHYLAXIS 04/05/16) STATINS (BAD REAXCTION 01/27/17) YUKO Inhibitors (Intermediate, COUGH 04/05/16) Home Med List: Amlodipine Besylate 5 MG TABLET 1 TAB PO DAILY HEART (Reported) Cholecalciferol (Vitamin D3) (Vitamin D) 2,000 UNIT TABLET 1 TAB PO DAILY SUPPLEMENT (Reported) Cyanocobalamin (Vitamin B-12) 1,000 MCG TABLET 1 TAB PO DAILY VITAMIN SUPPORT (Reported) Fenofibrate 150 MG CAPSULE 1 CAP PO Q48 CHOLESTEROL/TRIGLYCERIDES (Reported) Gabapentin 400 MG CAPSULE 1 CAP PO QPM DYSARTHRIA (Reported) Hydralazine HCl 25 MG TABLET 1 TAB PO 4 TIMES/DAY HEART (Reported) Indapamide 2.5 MG TABLET 1 TAB PO DAILY BP (Reported) Insulin Detemir (Levemir) (Unknown Strength) VIAL (Unknown Dose) DM (Reported ) Isosorbide Mononitrate (Isosorbide Mononitrate ER) 60 MG TAB.ER.24H 1 TAB PO TUES THURS SAT HEART (Reported) Liraglutide (Victoza 3-Sam) 0.6 MG/0.1 ML (18 MG/3 ML) PEN.INJCTR 0.6 MG SC DAILY DIABETES (Reported) Metoprolol Succ XL (Toprol XL) 25 MG TAB 0.5 TAB PO QPM HTN (Reported) Montelukast Sodium 10 MG TABLET 1 TAB PO DAILY ALLERGIES/RESPIRATORY ( Reported) [place]-3 Acid Ethyl Esters (Lovaza) 1 GRAM CAPSULE 1 CAP PO BID CHOLESTEROL ( Reported) Potassium Chloride (K-Tab ER) 20 MEQ TABLET.ER 1 TAB PO DAILY SUPPLEMENT ( Reported) Valsartan (Diovan) 320 MG TABLET 1 TAB PO DAILY HEART/BP (Reported) Warfarin Sodium (Coumadin) 3 MG TABLET 1 TAB PO SAT BLOOD THINNER (Reported) Warfarin Sodium (Coumadin) 3 MG TABLET 0.5 TAB PO Thursday PE ( Reported) Current Medications: Current Medications Sig/Roshan Start time Last Medication Dose Route Stop Time Status Admin Acetaminophen 0 .STK-MED ONE 01/18 1201 DC IV Acetaminophen 1,000 MG ONCE ONE 01/18 1200 DC 01/18 N/A 1 UNIT IV 01/18 1214 1200 Aspirin 81 MG ONCE ONE 01/18 1515 DC 01/18 PO 01/18 1516 1500 Aspirin 0 .STK-MED ONE 01/18 1441 DC PO Aspirin 0 .STK-MED ONE 01/18 1435 DC PO Review of Systems Review of Systems: No diplopia, No difficulty swallowing, No recent fever No recent falls Patient uses a walker Palpitations Shortness of breath seems to have improved No abdominal pain Occasional incontinence Occasional swelling lower extremities Other systems reviewed and negative Past History Travel History Traveled to [place] past 21 day No Medical History Neurological: ADULT TREMORS EENT: NONE Cardiovascular: hypertension, hyperlipidemia Respiratory: pulmonary embolism Gastrointestinal: diverticulitis, irritable bowel syndrome, peptic ulcer disease , KIDNEY STONES Hepatic: NONE Renal: NONE Musculoskeletal: NONE Psychiatric: NONE Endocrine: diabetes Blood Disorders: PE Cancer(s): breast cancer 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 yes Name of POA/HCP: Her Daughter Functional Ability ADLs Independent: dressing, eating, toileting, bathing. Ambulation: cane Exam & Diagnostic Data Vital Signs and I&O Vital Signs Date Time Temp Pulse Resp B/P B/P Pulse O2 O2 Flow FiO2 Mean Ox Delivery Rate 01/18 1543 49 200/62 01/18 1530 97.7 49 18 208/68 98 Room Air 01/18 1442 97.6 47 18 188/72 96 Room Air 01/18 1246 98.1 01/18 1139 56 20 107/91 98 Room Air Room Air 01/18 1129 98 Room Air Room Air 01/18 1057 52 24 220/100 98 Room Air Room Air 01/18 1047 83 16 120/83 98 Room Air Intake & Output 01/18 1600 01/18 0800 01/18 0000 Intake Total 100 Output Total Balance 100 Intake, IV 100 Family history shows that father had coronary artery disease Last 48 Hours of Lab Results: Laboratory Tests 01/18 1115 Chemistry Sodium (137 - 145 mmol/L) 138 Potassium (3.5 - 5.1 mmol/L) 4.4 Chloride (98 - 107 mmol/L) 102 Carbon Dioxide (22 - 30 mmol/L) 23 Anion Gap (5 - 16) 13 BUN (7 - 17 mg/dL) 42 H Creatinine (0.5 - 1.0 mg/dL) 1.2 H Estimated GFR (>60 ml/min) 43 L BUN/Creatinine Ratio (7 - 25 %) 35.0 H Glucose (65 - 99 mg/dL) 201 H Calcium (8.4 - 10.2 mg/dL) 10.0 Total Bilirubin (0.2 - 1.3 mg/dL) 0.7 AST (14 - 36 U/L) 23 ALT (9 - 52 U/L) 26 Alkaline Phosphatase (<127 U/L) 36 Total Protein (6.3 - 8.2 g/dL) 6.8 Albumin (3.5 - 5.0 g/dL) 3.9 Globulin (1.9 - 4.2 gm/dL) 2.9 Albumin/Globulin Ratio (1.1 - 2.2 %) 1.3 Coagulation PT (9.4 - 12.5 SEC) 19.8 H INR (0.90 - 1.19) 1.81 H APTT (25 - 37 SEC) 33 Hematology CBC w Diff NO MAN DIFF REQ WBC (4.8 - 10.8 /CUMM) 9.2 RBC (4.20 - 5.40 /CUMM) 4.37 Hgb (12.0 - 16.0 G/DL) 13.1 Hct (37 - 47 %) 39.2 MCV (81.0 - 99.0 FL) 89.7 MCH (27.0 - 31.0 PG) 30.0 MCHC (33.0 - 37.0 G/DL) 33.5 RDW (11.5 - 14.5 %) 13.9 Plt Count (130 - 400 /CUMM) 276 MPV (7.4 - 10.4 FL) 8.1 Gran % (42.2 - 75.2 %) 70.3 Lymphocytes % (20.5 - 51.1 %) 20.4 L Monocytes % (1.7 - 9.3 %) 6.6 Eosinophils % (0 - 5 %) 2.2 Basophils % (0.0 - 2.0 %) 0.5 Absolute Granulocytes (1.4 - 6.5 /CUMM) 6.5 Absolute Lymphocytes (1.2 - 3.4 /CUMM) 1.9 Absolute Monocytes (0.10 - 0.60 /CUMM) 0.6 Absolute Eosinophils (0.0 - 0.7 /CUMM) 0.2 Absolute Basophils (0.0 - 0.2 /CUMM) 0 CT head IMPRESSION: No acute intracranial abnormality. Diffuse atrophy and microvascular ischemic changes are similar to the prior study with no new finding CTA brain IMPRESSION: - No acute arterial occlusions intracranially. 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 - Stable chronic findings including global cerebral volume loss, chronic microangiopathy, and a chronic left basal ganglia lacunar infarct. Assessment/Plan Assessment: Transient ischemic episode Recommendations: Blood pressure control, since patient has no symptoms at present, blood pressure control can be more vigorous than would be if patient had an infarct Carotid ultrasound since that was not done on CTA Coumadin dose should be adjusted to therapeutic range Add a statin Consult Acknowledgment - Thank you for your consult request.
[2018-01-18 22:42] VITALS: BP 170/100
[2018-01-19 00:28] VITALS: BP 170/70
[2018-01-19 04:30] VITALS: BP 210/50
[2018-01-19 06:36] VITALS: BP 180/60
[2018-01-19 07:02] VITALS: BP 190/50
--- NOTE | 2018-01-19 08:04 | ULTRASOUND REPORT ---
EXAMINATION: DUPLEX BILATERAL CAROTID ULTRASOUND CLINICAL INFORMATION: TIA. COMPARISON: Carotid ultrasound 08/15/2015 TECHNIQUE: Real-time ultrasound and Doppler techniques (integrating B-mode 2D vascular images, Doppler spectral analysis and color flow Doppler imaging) were utilized to interrogate the extracranial carotid and vertebral arteries bilaterally. The degree of stenosis determined by criteria similar to NASCET. FINDINGS: Right side: 1. Mild amount of plaque is seen in the ECA/ICA region. 2. The common carotid artery velocity is 71 cm/s. 3. The internal carotid artery velocities are 58 cm/s systolic and 13 cm/s diastolic. 4. The external carotid artery velocity is 169 cm/s. Left side: 1. Minimal amount of plaque is seen in the ECA/ICA region. 2. The common carotid artery velocity is 85 cm/s. 3. The internal carotid artery velocities are 49 cm/s systolic and 9 cm/s diastolic. 4. The external carotid artery velocity is 134 cm/s. ADDITIONAL FINDINGS: 1. The vertebral arteries show antegrade flow. IMPRESSION: 1. RIGHT: Minimal, nonhemodynamically significant stenosis of the proximal right internal carotid artery corresponding to a 0-49% stenosis by velocity criteria. 2. LEFT: Minimal, nonhemodynamically significant stenosis of the proximal left internal carotid artery corresponding to a 0-49% stenosis by velocity criteria. 3. Minimally elevated velocity within the right external carotid artery suggest mild stenosis.
[2018-01-19 08:12] LABS: ABSOLUTE BASOPHIL COUNT 0.1 /CUMM (0.0-0.2); ABSOLUTE EOSINOPHIL COUNT 0.2 /CUMM (0.0-0.7); ABSOLUTE LYMPH COUNT 1.6 /CUMM (1.2-3.4); ABSOLUTE MONOCYTE COUNT 0.6 /CUMM (0.10-0.60); BASOPHIL % 0.7 % (0.0-2.0); EOSINOPHIL % 1.9 % (0-5); GRANULOCYTE % 74.1 % (42.2-75.2); HEMATOCRIT 37.3 % (37-47); MEAN CORPUSCULAR HGB 30.6 PG (27.0-31.0); MEAN CORPUSCULAR HGB CONC 33.4 G/DL (33.0-37.0); MEAN CORPUSCULAR VOLUME 91.6 FL (81.0-99.0); MEAN PLATELET VOLUME 8.4 FL (7.4-10.4); PLATELET COUNT 248 /CUMM (130-400); RBC DISTRIBUTION WIDTH 14.1 % (11.5-14.5); RED BLOOD CELL CT 4.08 /CUMM (4.20-5.40); WHITE BLOOD CELL COUNT 9.4 /CUMM (4.8-10.8)
[2018-01-19 08:56] LABS: PT 18.4 SEC (9.4-12.5)
--- NOTE | 2018-01-19 09:20 | PN- Housestaff ---
Subjective Follow-up For: TIA Tele-Events Since Last Visit: sinus bradycardia HR 30s-50s Subjective: patient states she had an episode of worsening tremors, headache, elevated blood pressure ~240 systolic overnight which was treated with 10mg IV hydralazine she states she feels much better currently, only complaints is a back ache Review of Systems Constitutional: Reports: see HPI. Objective Last 24 Hrs of Vital Signs/I&O Vital Signs Date Time Temp Pulse Resp B/P B/P Pulse O2 O2 Flow FiO2 Mean Ox Delivery Rate 01/19 1206 96.6 43 20 162/48 01/19 1205 43 162/48 01/19 0909 180/42 01/19 0909 49 180/42 01/19 0909 96.6 49 20 180/42 01/19 0909 96.6 49 20 180/42 01/19 0702 96.6 49 20 190/50 93 Room Air 01/19 0636 46 180/60 01/19 0430 98.2 52 210/50 01/19 0346 48 240/70 01/19 0028 170/70 01/19 0000 Room Air 01/18 2304 56 170/100 01/18 2304 50 170/100 01/18 2242 98.1 53 18 170/100 96 01/18 2051 40 180/100 01/18 1827 97.8 54 19 186/110 01/18 1611 97.8 54 19 186/110 97 01/18 1543 49 200/62 01/18 1530 97.7 49 18 208/68 98 Room Air 01/18 1442 97.6 47 18 188/72 96 Room Air Intake & Output 01/19 1600 01/19 0800 01/19 0000 Intake Total 120 880 Output Total 500 450 Balance -380 430 Intake, Oral 120 880 Number 1 Bowel Movements Output, Urine 500 450 Patient 95.396 kg Weight Physical Exam General Appearance: Alert, Oriented X3, Cooperative, upper extremity tremors Neck: Supple, No JVD Cardiovascular: Normal S1, Normal S2, No Murmurs, bradycardic Lungs: Clear to Auscultation, Normal Air Movement Abdomen: Normal Bowel Sounds, Soft, No Tenderness, No Masses Extremities: No Clubbing, No Cyanosis, Normal Pulses, trace LE edema Current Medications: Current Medications Sig/Roshan Start time Last Medication Dose Route Stop Time Status Admin Acetaminophen 650 MG Q6P PRN 01/18 1630 AC 01/19 PO 1206 Amlodipine Besylate 10 MG DAILY 01/20 0900 AC PO Amlodipine Besylate 5 MG ONCE ONE 01/19 1030 DC 01/19 PO 01/19 1031 1206 Amlodipine Besylate 5 MG DAILY 01/19 0900 DC 01/19 PO 0909 Amlodipine Besylate 2.5 MG ONCE ONE 01/18 2300 DC 01/18 PO 01/18 2301 2304 Amlodipine Besylate 5 MG .STK-MED ONE 01/18 2256 DC PO 01/18 2257 Aspirin 81 MG DAILY 01/19 0900 AC 01/19 PO 0909 Aspirin 81 MG ONCE ONE 01/18 1515 DC 01/18 PO 01/18 1516 1500 Aspirin 0 .STK-MED ONE 01/18 1441 DC PO Aspirin 0 .STK-MED ONE 01/18 1435 DC PO Atorvastatin Calcium 80 MG 1700 01/18 1700 AC PO Cholecalciferol 2,000 IU DAILY 01/19 0900 AC 01/19 PO 0909 Cyanocobalamin 1,000 MCG DAILY 01/19 0900 AC 01/19 PO 0908 Fenofibrate 145 MG DAILY 01/19 0900 AC 01/19 PO 0909 Fish Oil 1,050 MG BID 01/18 2100 AC 01/19 PO 0909 Gabapentin 400 MG QPM 01/18 2100 AC 01/18 PO 2051 Hydralazine HCl 50 MG 4 TIMES/DAY 01/19 1300 AC 01/19 PO 1205 Hydralazine HCl 10 MG ONCE ONE 01/19 0345 DC 01/19 IV 01/19 0346 0346 Hydralazine HCl 25 MG 4 TIMES/DAY 01/18 1700 DC 01/19 PO 0909 Isosorbide 60 MG BID 01/18 2300 AC 01/19 Mononitrate PO 0909 Losartan Potassium 50 MG DAILY 01/19 0900 AC 01/19 PO 0909 Metoprolol Succinate 12.5 MG QPM 01/18 2100 CAN PO Montelukast Sodium 10 MG DAILY 01/19 0900 AC 01/19 PO 0909 Potassium Chloride 20 MEQ DAILY 01/19 0900 AC 01/19 PO 0909 Warfarin Sodium 3 MG .STK-MED ONE 01/18 1812 DC PO 01/18 1813 Warfarin Sodium 3 MG COUMADIN 1700 ONE 01/18 1700 DC 01/18 PO 01/18 9474 1406 Last 24 Hrs of Lab/Abraham Results Last 24 Hrs of Labs/Mics: Laboratory Tests 01/19/18 0615: Anion Gap 14, Estimated GFR 47 L, BUN/Creatinine Ratio 33.6 H, Magnesium 1.8, PT 18.4 H, INR 1.68 H, CBC w Diff NO MAN DIFF REQ, RBC 4.08 L, MCV 91.6, MCH 30.6, MCHC 33.4, RDW 14.1, MPV 8.4, Gran % 74.1, Lymphocytes % 16.8 L, Monocytes % 6.5, Eosinophils % 1.9, Basophils % 0.7, Absolute Granulocytes 7.0 H, Absolute Lymphocytes 1.6, Absolute Monocytes 0.6, Absolute Eosinophils 0.2, Absolute Basophils 0.1 01/18/18 2300: Troponin I 0.04 01/18/18 1730: Troponin I 0.03 Assessment/Plan Assessment: 87 year old female with PMH significant for DVT/PE on coumadin presents with altered mental status, slurred speech, and stroke evaluation TIA CT head and CTA were negative for an acute bleed, ischemia or thrombus TPA not given on coumadin Neurology consultation Carotid dopplers Continue aspirin and coumadin (INR subtherapeutic) Check MRI brain tomorrow Bradycardia: second degree AV block Negative chronotropic agents held Continue other antihypertensives Cardiology consultation (Dr. Vanessa) Troponins negative x 3 DM: Accuchecks TIDAC Novolog sliding scale insulin HTN: Avoid AV shar blocking agents Increased norvasc to 10mg daily and hydralazine from 25mg to 50mg Continue imdur and losartan HLD: Started on statin because of TIA Reportedly has GI upset with statins Will continue at this time and monitor PE/DVT: Continue coumadin INR subtherapeutic 1.68 today Diabetic diet DVT ppx-on coumadin DNR/DNI Problem List: 1. TIA (transient ischemic attack) 2. Essential hypertension Pain Ratin Pain Location: low back Pain Goal: Pain 4 or less Pain Plan: prn tylenol Tomorrow's Labs & Rationales: BEP, PT/INR
--- NOTE | 2018-01-19 11:02 | Cons- Cardiology ---
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 Patient states that she was in her usual state of health until the day of admission when she was driving around with her daughter and developed worsening tremor along with slurred speech. She states that she has had intermittent episodes of slurred beats in the past. According to the chart she reportedly was also confused. The patient was seen by neurology and felt not to be a candidate for TPA due to the fact that she has been treated with Coumadin. She currently states that her tremor has improved as has her speech. She denies chest pain but does have chronic shortness of breath without change. She denies PND or orthopnea or syncope. She does have intermittent episodes of dizziness. Holter monitor performed January 2017 demonstrated sinus rhythm first degree AV block with pauses of up to 2.2 seconds noted during sleep. Episodes of Wenckebach along with blocked PACs. Echocardiogram performed January 2017 demonstrated ejection fraction of 60%, left ventricular hypertrophy and mild diastolic dysfunction Nuclear stress test performed February 2017 and straight ejection fraction is 77% and no evidence for ischemia Allergies/Medications Allergies: Coded Allergies: Sulfa (Sulfonamide Antibiotics) (Severe, ANAPHYLAXIS 04/05/16) STATINS (BAD REAXCTION 01/27/17) YUKO Inhibitors (Intermediate, COUGH 04/05/16) Home Med List: Amlodipine Besylate 5 MG TABLET 1 TAB PO DAILY HEART (Reported) Cholecalciferol (Vitamin D3) (Vitamin D) 2,000 UNIT TABLET 1 TAB PO DAILY SUPPLEMENT (Reported) Cyanocobalamin (Vitamin B-12) 1,000 MCG TABLET 1 TAB PO DAILY VITAMIN SUPPORT (Reported) Fenofibrate 150 MG CAPSULE 1 CAP PO Q48 CHOLESTEROL/TRIGLYCERIDES (Reported) Gabapentin 400 MG CAPSULE 1 CAP PO QPM DYSARTHRIA (Reported) Hydralazine HCl 25 MG TABLET 1 TAB PO 4 TIMES/DAY HEART (Reported) Indapamide 2.5 MG TABLET 1 TAB PO DAILY BP (Reported) Insulin Detemir (Levemir) (Unknown Strength) VIAL (Unknown Dose) DM (Reported ) Isosorbide Mononitrate (Isosorbide Mononitrate ER) 60 MG TAB.ER.24H 1 TAB PO TUES THURS SAT HEART (Reported) Liraglutide (Victoza 3-Sam) 0.6 MG/0.1 ML (18 MG/3 ML) PEN.INJCTR 0.6 MG SC DAILY DIABETES (Reported) Metoprolol Succ XL (Toprol XL) 25 MG TAB 0.5 TAB PO QPM HTN (Reported) Montelukast Sodium 10 MG TABLET 1 TAB PO DAILY ALLERGIES/RESPIRATORY ( Reported) [place]-3 Acid Ethyl Esters (Lovaza) 1 GRAM CAPSULE 1 CAP PO BID CHOLESTEROL ( Reported) Potassium Chloride (K-Tab ER) 20 MEQ TABLET.ER 1 TAB PO DAILY SUPPLEMENT ( Reported) Valsartan (Diovan) 320 MG TABLET 1 TAB PO DAILY HEART/BP (Reported) Warfarin Sodium (Coumadin) 3 MG TABLET 1 TAB PO TUES TH SAT BLOOD THINNER (Reported) Warfarin Sodium (Coumadin) 3 MG TABLET 0.5 TAB PO Thursday PE ( Reported) Current Medications: Current Medications Sig/Roshan Start time Last Medication Dose Route Stop Time Status Admin Acetaminophen 650 MG Q6P PRN 01/18 1630 AC PO Acetaminophen 0 .STK-MED ONE 01/18 1201 DC IV Acetaminophen 1,000 MG ONCE ONE 01/18 1200 DC 01/18 N/A 1 UNIT IV 01/18 1214 1200 Amlodipine Besylate 10 MG DAILY 01/20 0900 AC PO Amlodipine Besylate 5 MG ONCE ONE 01/19 1030 DC PO 01/19 1031 Amlodipine Besylate 5 MG DAILY 01/19 0900 DC 01/19 PO 0909 Amlodipine Besylate 2.5 MG ONCE ONE 01/18 2300 DC 01/18 PO 01/18 2301 2304 Amlodipine Besylate 5 MG .STK-MED ONE 01/18 2256 DC PO 01/18 2257 Aspirin 81 MG DAILY 01/19 0900 AC 01/19 PO 0909 Aspirin 81 MG ONCE ONE 01/18 1515 DC 01/18 PO 01/18 1516 1500 Aspirin 0 .STK-MED ONE 01/18 1441 DC PO Aspirin 0 .STK-MED ONE 01/18 1435 DC PO Atorvastatin Calcium 80 MG 1700 01/18 1700 AC PO Cholecalciferol 2,000 IU DAILY 01/19 0900 AC 01/19 PO 0909 Cyanocobalamin 1,000 MCG DAILY 01/19 0900 AC 01/19 PO 0908 Fenofibrate 145 MG DAILY 01/19 0900 AC 01/19 PO 0909 Fish Oil 1,050 MG BID 01/18 2100 AC 01/19 PO 0909 Gabapentin 400 MG QPM 01/18 2100 AC 01/18 PO 205 Hydralazine HCl 50 MG 4 TIMES/DAY 01/19 1300 AC PO Hydralazine HCl 10 MG ONCE ONE 01/19 0345 DC 01/19 IV 01/19 0346 0346 Hydralazine HCl 25 MG 4 TIMES/DAY 01/18 1700 DC 01/19 PO 0909 Isosorbide 60 MG BID 01/18 2300 AC 01/19 Mononitrate PO 0909 Losartan Potassium 50 MG DAILY 01/19 09 AC 01/19 PO 0909 Metoprolol Succinate 12.5 MG QPM 01/18 2100 CAN PO Montelukast Sodium 10 MG DAILY 01/19 09 AC 01/19 PO 0909 Potassium Chloride 20 MEQ DAILY 01/19 0900 AC 01/19 PO 0909 Warfarin Sodium 3 MG .STK-MED ONE 01/18 1812 DC PO 01/18 1813 Warfarin Sodium 3 MG COUMADIN 1700 ONE 01/18 1700 DC 01/18 PO 01/18 1701 1826 Review of Systems Review of Systems: Eyes no blurred or double vision Ears no deafness or ringing Nose and throat no recurrent sinusitis Lungs per history of present illness Heart per history of present illness Abdomen no nausea vomiting Musculoskeletal occasional muscle and joint pains Psych no anxiety or depression Neuro without recurrent headache or seizures essential tremor and slurred speech as noted above Endocrine no heat or cold intolerance Past History Travel History Traveled to [place] past 21 day No Medical History Neurological: ADULT TREMORS EENT: NONE Cardiovascular: hypertension, hyperlipidemia Respiratory: pulmonary embolism Gastrointestinal: diverticulitis, irritable bowel syndrome, peptic ulcer disease , KIDNEY STONES Hepatic: NONE Renal: NONE Musculoskeletal: NONE Psychiatric: NONE Endocrine: diabetes Blood Disorders: PE Cancer(s): breast cancer 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 Ambulation: cane Exam & Diagnostic Data Vital Signs and I&O Vital Signs Date Time Temp Pulse Resp B/P B/P Pulse O2 O2 Flow FiO2 Mean Ox Delivery Rate 01/19 0909 180/42 01/19 0909 49 180/42 01/19 0909 96.6 49 20 180/42 01/19 0909 96.6 49 20 180/42 01/19 0702 96.6 49 20 190/50 93 Room Air 01/19 0636 46 180/60 01/19 0430 98.2 52 210/50 01/19 0346 48 240/70 01/19 0028 170/70 01/19 0000 Room Air 01/18 2304 56 170/100 01/18 2304 50 170/100 01/18 2242 98.1 53 18 170/100 96 01/18 2051 40 180/100 01/18 1827 97.8 54 19 186/110 01/18 1611 97.8 54 19 186/110 97 01/18 1543 49 200/62 01/18 1530 97.7 49 18 208/68 98 Room Air 01/18 1442 97.6 47 18 188/72 96 Room Air 01/18 1246 98.1 01/18 1139 56 20 107/91 98 Room Air Room Air 01/18 1129 98 Room Air Room Air 01/18 1057 52 24 220/100 98 Room Air Room Air Intake & Output 01/19 1600 01/19 0800 01/19 0000 01/18 1600 01/18 0800 01/18 0000 Intake Total 120 760 220 Output Total 500 450 Balance -380 310 220 Intake, IV 100 Intake, Oral 120 760 120 Number 1 Bowel Movements Output, Urine 500 450 Patient 210 lb 200 lb Weight Weight Reported by Patient Measurement Method Physical Exam: Patient is a well-developed well-nourished female appearing in no acute distress HEENT is unremarkable Neck is supple there is no JVD Lungs are clear Heart regular rhythm S1 and S2 are normal no gallops or rubs 2/6 soft ejection murmur at right sternal border Abdomen bowel sounds positive Extremities without edema Neuro essential tremor Labs/Abraham Results: Laboratory Tests 01/19 01/18 01/18 0615 2300 1730 Chemistry Sodium (137 - 145 mmol/L) 137 Potassium (3.5 - 5.1 mmol/L) 4.2 Chloride (98 - 107 mmol/L) 102 Carbon Dioxide (22 - 30 mmol/L) 21 L Anion Gap (5 - 16) 14 BUN (7 - 17 mg/dL) 37 H Creatinine (0.5 - 1.0 mg/dL) 1.1 H Estimated GFR (>60 ml/min) 47 L BUN/Creatinine Ratio (7 - 25 %) 33.6 H Magnesium (1.6 - 2.3 mg/dL) 1.8 Troponin I (< 0.11 ng/ml) 0.04 0.03 Coagulation PT (9.4 - 12.5 SEC) 18.4 H INR (0.90 - 1.19) 1.68 H Hematology CBC w Diff NO MAN DIFF REQ WBC (4.8 - 10.8 /CUMM) 9.4 RBC (4.20 - 5.40 /CUMM) 4.08 L Hgb (12.0 - 16.0 G/DL) 12.5 Hct (37 - 47 %) 37.3 MCV (81.0 - 99.0 FL) 91.6 MCH (27.0 - 31.0 PG) 30.6 MCHC (33.0 - 37.0 G/DL) 33.4 RDW (11.5 - 14.5 %) 14.1 Plt Count (130 - 400 /CUMM) 248 MPV (7.4 - 10.4 FL) 8.4 Gran % (42.2 - 75.2 %) 74.1 Lymphocytes % (20.5 - 51.1 %) 16.8 L Monocytes % (1.7 - 9.3 %) 6.5 Eosinophils % (0 - 5 %) 1.9 Basophils % (0.0 - 2.0 %) 0.7 Absolute Granulocytes (1.4 - 6.5 /CUMM) 7.0 H Absolute Lymphocytes (1.2 - 3.4 /CUMM) 1.6 Absolute Monocytes (0.10 - 0.60 /CUMM) 0.6 Absolute Eosinophils (0.0 - 0.7 /CUMM) 0.2 Absolute Basophils (0.0 - 0.2 /CUMM) 0.1 01/18 1115 Chemistry Sodium (137 - 145 mmol/L) 138 Potassium (3.5 - 5.1 mmol/L) 4.4 Chloride (98 - 107 mmol/L) 102 Carbon Dioxide (22 - 30 mmol/L) 23 Anion Gap (5 - 16) 13 BUN (7 - 17 mg/dL) 42 H Creatinine (0.5 - 1.0 mg/dL) 1.2 H Estimated GFR (>60 ml/min) 43 L BUN/Creatinine Ratio (7 - 25 %) 35.0 H Glucose (65 - 99 mg/dL) 201 H Calcium (8.4 - 10.2 mg/dL) 10.0 Total Bilirubin (0.2 - 1.3 mg/dL) 0.7 AST (14 - 36 U/L) 23 ALT (9 - 52 U/L) 26 Alkaline Phosphatase (<127 U/L) 36 Troponin I (< 0.11 ng/ml) 0.04 Total Protein (6.3 - 8.2 g/dL) 6.8 Albumin (3.5 - 5.0 g/dL) 3.9 Globulin (1.9 - 4.2 gm/dL) 2.9 Albumin/Globulin Ratio (1.1 - 2.2 %) 1.3 Triglycerides (<150 mg/dL) 181 H Cholesterol (<200 MG/DL) 131 LDL Cholesterol, Calc (65 - 129 mg/dL) 65 HDL Cholesterol (40 - 60 mg/dL) 30 L Cholesterol/HDL Ratio (0.00 - 4.23 %) 4 Coagulation PT (9.4 - 12.5 SEC) 19.8 H INR (0.90 - 1.19) 1.81 H APTT (25 - 37 SEC) 33 Hematology CBC w Diff NO MAN DIFF REQ WBC (4.8 - 10.8 /CUMM) 9.2 RBC (4.20 - 5.40 /CUMM) 4.37 Hgb (12.0 - 16.0 G/DL) 13.1 Hct (37 - 47 %) 39.2 MCV (81.0 - 99.0 FL) 89.7 MCH (27.0 - 31.0 PG) 30.0 MCHC (33.0 - 37.0 G/DL) 33.5 RDW (11.5 - 14.5 %) 13.9 Plt Count (130 - 400 /CUMM) 276 MPV (7.4 - 10.4 FL) 8.1 Gran % (42.2 - 75.2 %) 70.3 Lymphocytes % (20.5 - 51.1 %) 20.4 L Monocytes % (1.7 - 9.3 %) 6.6 Eosinophils % (0 - 5 %) 2.2 Basophils % (0.0 - 2.0 %) 0.5 Absolute Granulocytes (1.4 - 6.5 /CUMM) 6.5 Absolute Lymphocytes (1.2 - 3.4 /CUMM) 1.9 Absolute Monocytes (0.10 - 0.60 /CUMM) 0.6 Absolute Eosinophils (0.0 - 0.7 /CUMM) 0.2 Absolute Basophils (0.0 - 0.2 /CUMM) 0 Diagnostic Data EKG Results Sinus bradycardia first-degree AV block Wen[place] Other Results CT of the head IMPRESSION: No acute intracranial abnormality. Diffuse atrophy and microvascular ischemic changes are similar to the prior study with no new finding Carotid Doppler no significant stenosis Assessment/Plan Assessment/Plan 1. Known conduction system disease asymptomatic with periods of sinus bradycardia, Wenckebach and up to 2.2 second pauses noted during sleep 2. Hypertension 3. Essential tremor 4. TIA with subtherapeutic INR 5. History of PE/DVT on Coumadin 6. Chronic shortness of breath possibly secondary to asthma. There is no evidence for congestive heart failure Recommendations 1. Continue Coumadin monitoring INR to maintain a therapeutic range 2. Echocardiogram is pending 3. Continue current antihypertensive medications. Agree with increasing amlodipine for better control. Avoid AV shar blocking agents 4. Continue to monitor on telemetry there is no current indication for permanent pacemaker Thank you for allowing [facility] to participate in the care of your patient. Consult Acknowledgment - Thank you for your consult request.
--- NOTE | 2018-01-19 13:25 | PN- Att Addend ---
Attending Addendum Attending Brief Note Patient seen and examined. Plan of care discussed with the medical team and the patient. Available lab work and radiology test reports were reviewed. Exam: General: Patient awake but appears confused and she is only partially oriented and appears without any distress; she has visible intention tremors CVS: S1 plus S2 without any murmur or gallops Chest: Few scattered crepitation without any wheeze. There is no respiratory distress. 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 She seems to follow commands. Pupils are both equal and reactive. Lower extremity shows weakness of for 3 over 5 right laterally. Upper extremities power is 4 over 5 bilaterally Extremities: No edema; no clubbing or cyanosis noted Assessment * Difficulty with speech, suspected stroke * History of hypertension uncontrolled with hypertensive urgency * Hyperlipidemia * History diabetes * History of breast cancer * Intention tremors * Chronic renal failure stage III b, creatinine close to baseline Plan * DC lipitor- pt cannot tolerate it based on past experience * contin ASA * Contin Coumadin for now * MRI, EchoPatient likely will need MRI to rule out new stroke given her symptoms * PT evaluation * DVT prophylaxis * Continue antihypertensive regimen and monitor BP closely * Increasing brought up into terminal gram daily and increase the periventricular 50 mg every 6. If pressure is still uncontrolled we will increase losartan. * we called her daughter over the phone and she was updated. Current Medications Sig/Roshan Start time Last Medication Dose Route Stop Time Status Admin Acetaminophen 650 MG Q6P PRN 01/18 1630 AC 01/19 PO 1206 Amlodipine Besylate 10 MG DAILY 01/20 0900 AC PO Amlodipine Besylate 5 MG ONCE ONE 01/19 1030 DC 01/19 PO 01/19 1031 1206 Amlodipine Besylate 5 MG DAILY 01/19 0900 DC 01/19 PO 0909 Amlodipine Besylate 2.5 MG ONCE ONE 01/18 2300 DC 01/18 PO 01/18 2301 2304 Amlodipine Besylate 5 MG .STK-MED ONE 01/18 2256 DC PO 01/18 2257 Aspirin 81 MG DAILY 01/19 0900 AC 01/19 PO 0909 Aspirin 81 MG ONCE ONE 01/18 1515 DC 01/18 PO 01/18 1516 1500 Aspirin 0 .STK-MED ONE 01/18 1441 DC PO Aspirin 0 .STK-MED ONE 01/18 1435 DC PO Atorvastatin Calcium 80 MG 1700 01/18 1700 AC PO Cholecalciferol 2,000 IU DAILY 01/19 0900 AC 01/19 PO 0909 Cyanocobalamin 1,000 MCG DAILY 01/19 0900 AC 01/19 PO 0908 Fenofibrate 145 MG DAILY 01/19 0900 AC 01/19 PO 0909 Fish Oil 1,050 MG BID 01/18 2100 AC 01/19 PO 0909 Gabapentin 400 MG QPM 01/18 2100 AC 01/18 PO 2051 Hydralazine HCl 50 MG 4 TIMES/DAY 01/19 1300 AC 01/19 PO 1205 Hydralazine HCl 10 MG ONCE ONE 01/19 0345 DC 01/19 IV 01/19 0346 034 Hydralazine HCl 25 MG 4 TIMES/DAY 01/18 1700 DC 01/19 PO 0909 Insulin Aspart 0 TIDAC 01/19 1700 AC SC Isosorbide 60 MG BID 01/18 2300 AC 01/19 Mononitrate PO 0909 Losartan Potassium 50 MG DAILY 01/19 0900 AC 01/19 PO 0909 Metoprolol Succinate 12.5 MG QPM 01/18 2100 CAN PO Montelukast Sodium 10 MG DAILY 01/19 0900 AC 01/19 PO 0909 Potassium Chloride 20 MEQ DAILY 01/19 0900 AC 01/19 PO 0909 Warfarin Sodium 3 MG COUMADIN 1700 ONE 01/19 1700 AC PO 01/19 170 Warfarin Sodium 3 MG .STK-MED ONE 01/18 181 DC PO 01/18 181 Warfarin Sodium 3 MG COUMADIN 170 ONE 01/18 1700 DC 01/18 PO 01/18 1701 1826 Laboratory Tests 01/19/18 0615: Anion Gap 14, Estimated GFR 47 L, BUN/Creatinine Ratio 33.6 H, Magnesium 1.8, PT 18.4 H, INR 1.68 H, CBC w Diff NO MAN DIFF REQ, RBC 4.08 L, MCV 91.6, MCH 30.6, MCHC 33.4, RDW 14.1, MPV 8.4, Gran % 74.1, Lymphocytes % 16.8 L, Monocytes % 6.5, Eosinophils % 1.9, Basophils % 0.7, Absolute Granulocytes 7.0 H, Absolute Lymphocytes 1.6, Absolute Monocytes 0.6, Absolute Eosinophils 0.2, Absolute Basophils 0.1 01/18/18 2300: Troponin I 0.04 01/18/18 1730: Troponin I 0.03 01/18/18 1115: Anion Gap 13, Estimated GFR 43 L, BUN/Creatinine Ratio 35.0 H, Glucose 201 H, Calcium 10.0, Total Bilirubin 0.7, AST 23, ALT 26, Alkaline Phosphatase 36, Troponin I 0.04, Total Protein 6.8, Albumin 3.9, Globulin 2.9, Albumin/Globulin Ratio 1.3, Triglycerides 181 H, Cholesterol 131, LDL Cholesterol, Calc 65, HDL Cholesterol 30 L, Cholesterol/HDL Ratio 4, PT 19.8 H, INR 1.81 H, APTT 33, CBC w Diff NO MAN DIFF REQ, RBC 4.37, MCV 89.7, MCH 30.0, MCHC 33.5, RDW 13.9, MPV 8.1, Gran % 70.3, Lymphocytes % 20.4 L, Monocytes % 6.6, Eosinophils % 2.2, Basophils % 0.5, Absolute Granulocytes 6.5, Absolute Lymphocytes 1.9, Absolute Monocytes 0.6, Absolute Eosinophils 0.2, Absolute Basophils 0 Vital Signs Date Time Temp Pulse Resp B/P B/P Pulse O2 O2 Flow FiO2 Mean Ox Delivery Rate 01/19 1206 96.6 43 20 162/48 01/19 1205 43 162/48 01/19 0909 180/42 01/19 0909 49 180/42 01/19 0909 96.6 49 20 180/42 01/19 0909 96.6 49 20 180/42 01/19 0702 96.6 49 20 190/50 93 Room Air 01/19 0636 46 180/60 01/19 0430 98.2 52 210/50 01/19 0346 48 240/70 01/19 0028 170/70 01/19 0000 Room Air 01/18 2304 56 170/100 01/18 2304 50 170/100 01/18 2242 98.1 53 18 170/100 96 01/18 2051 40 180/100 01/18 1827 97.8 54 19 186/110 01/18 1611 97.8 54 19 186/110 97 01/18 1543 49 200/62 01/18 1530 97.7 49 18 208/68 98 Room Air 01/18 1442 97.6 47 18 188/72 96 Room Air Intake & Output 01/19 1600 01/19 0800 01/19 0000 Intake Total 120 880 Output Total 500 450 Balance -380 430 Intake, Oral 120 880 Number 1 Bowel Movements Output, Urine 500 450 Patient 210 lb Weight carotid us 1. RIGHT: Minimal, nonhemodynamically significant stenosis of the proximal right internal carotid artery corresponding to a 0-49% stenosis by velocity criteria. 2. LEFT: Minimal, nonhemodynamically significant stenosis of the proximal left internal carotid artery corresponding to a 0-49% stenosis by velocity criteria. 3. Minimally elevated velocity within the right external carotid artery suggest mild stenosis.
[2018-01-19 14:48] VITALS: BP 144/62
[2018-01-19 22:32] VITALS: BP 164/94
[2018-01-20 06:50] VITALS: BP 136/64
--- NOTE | 2018-01-20 07:05 | PN- Housestaff ---
Subjective Follow-up For: TIA bradycardia Tele-Events Since Last Visit: sinus bradycardia HR 30s-50s Subjective: no complaints, tremors improved no dizziness or lightheaded, no presyncope Review of Systems Constitutional: Reports: see HPI. Objective Last 24 Hrs of Vital Signs/I&O Vital Signs Date Time Temp Pulse Resp B/P B/P Pulse O2 O2 Flow FiO2 Mean Ox Delivery Rate 01/20 1430 97.5 42 18 170/60 96 Room Air 01/20 1215 57 170/46 01/20 0829 97.7 57 18 164/42 01/20 0829 97.7 57 164/42 01/20 0828 57 164/42 01/20 0828 57 164/42 01/20 0650 97.7 57 18 136/64 94 Room Air 01/19 2232 98.3 44 18 164/94 94 01/19 1700 48 144/62 Intake & Output 01/20 1600 01/20 0800 01/20 0000 Intake Total 580 110 300 Output Total 400 150 Balance 180 110 150 Intake, IV 100 10 Intake, Oral 480 100 300 Output, Urine 400 150 Patient 95.368 kg Weight Physical Exam General Appearance: Alert, Oriented X3, Cooperative, No Acute Distress, obese Neck: Supple, No JVD Cardiovascular: Normal S1, Normal S2, No Murmurs, Gallops, Rubs, bradycardic Lungs: Clear to Auscultation, Normal Air Movement Abdomen: Normal Bowel Sounds, Soft, No Tenderness, No Masses Extremities: No Clubbing, No Cyanosis, Normal Pulses, trace bilateral lower extremity edema Current Medications: Current Medications Sig/Roshan Start time Last Medication Dose Route Stop Time Status Admin Acetaminophen 650 MG Q6P PRN 01/18 1630 AC 01/19 PO 1206 Amlodipine Besylate 10 MG DAILY 01/20 09 AC 01/20 PO 0829 Aspirin 81 MG DAILY 01/19 09 AC 01/20 PO 0829 Atorvastatin Calcium 80 MG 1700 01/18 1700 AC 01/19 PO 1724 Cholecalciferol 2,000 IU DAILY 01/19 09 AC 01/20 PO 0828 Cyanocobalamin 1,000 MCG DAILY 01/19 09 AC 01/20 PO 0828 Fenofibrate 145 MG DAILY 01/19 09 AC 01/20 PO 0829 Fish Oil 1,050 MG BID 01/18 2100 AC 01/20 PO 0829 Gabapentin 400 MG QPM 01/18 2100 AC 01/19 PO 2128 Hydralazine HCl 50 MG 4 TIMES/DAY 01/19 1300 AC 01/20 PO 1215 Insulin Aspart 0 TIDAC 01/19 1700 AC 01/20 SC 1215 Isosorbide 60 MG BID 01/18 2300 AC 01/20 Mononitrate PO 0828 Losartan Potassium 50 MG DAILY 01/19 0900 DC 01/20 PO 0828 Montelukast Sodium 10 MG DAILY 01/19 0900 AC 01/20 PO 0828 Patient Medication 1 ED ONE ONE 01/19 1700 DC Teaching ED 01/19 1701 Potassium Chloride 20 MEQ DAILY 01/19 0900 AC 01/20 PO 0828 Sodium Chloride 500 ML .Q5H 01/20 1315 AC 01/20 IV 01/20 1814 1406 Warfarin Sodium 5 MG COUMADIN 1700 ONE 01/20 1700 AC PO 01/20 1701 Warfarin Sodium 3 MG COUMADIN 1700 ONE 01/19 1700 DC 01/19 PO 01/19 1701 1700 Last 24 Hrs of Lab/Abraham Results Last 24 Hrs of Labs/Mics: Laboratory Tests 01/20/18 0715: Anion Gap 12, Estimated GFR 28 L, BUN/Creatinine Ratio 35.9 H, PT 16.7 H, INR 1.53 H Assessment/Plan Assessment: 87 year old female with PMH significant for DVT/PE on coumadin presents with altered mental status, slurred speech, and stroke evaluation BASHIR: Creatinine 1.7 today from 1.1 ARB held Given some intravenous fluid resuscitation Avoid nephrotoxins Repeat renal function tests tomorrow morning labs TIA CT head and CTA were negative for an acute bleed, ischemia or thrombus TPA not given on coumadin Neurology consultation Carotid dopplers Continue aspirin and coumadin (INR subtherapeutic) MRI brain scattered chronic small vessel ischemic change within periventricular white matter Bradycardia: second degree AV block Negative chronotropic agents held Continue other antihypertensives Cardiology consultation (Dr. Vanessa) Troponins negative x 3 Possible need for pacemaker with Wenkebach and 2:1 block, although patient is asymptomatic with largely night time episodes but has had bradycardia as low as HR 28 DM: Accuchecks TIDAC Novolog sliding scale insulin HTN: Avoid AV shar blocking agents Increased norvasc to 10mg daily and hydralazine from 25mg to 50mg Continue imdur and losartan Blood pressure better controlled on new regimen HLD: Started on statin because of TIA Reportedly has GI upset with statins Will continue at this time and monitor PE/DVT: Continue coumadin INR subtherapeutic 1.81 today Diabetic diet DVT ppx-on coumadin DNR/DNI Problem List: 1. Second degree AV block, Mobitz type I 2. Diabetes mellitus 3. Benign hypertension 4. TIA (transient ischemic attack) 5. Renal insufficiency 6. Tremor Pain Ratin Pain Location: n/a Pain Goal: Pain 4 or less Pain Plan: prn Tomorrow's Labs & Rationales: pt/inr, bep
[2018-01-20 08:48] LABS: PT 16.7 SEC (9.4-12.5)
--- NOTE | 2018-01-20 09:48 | ECHOCARDIOGRAM REPORT ---
ALIYAH LEAVITT Age: 87 : 1930 Gender: F Exam Date: 01/19/2018 18:12 Exam Location: [address] Ht (in): 56 Wt (lb): 205 BSA: 1.98 BP: 180 / 92 Ordering Physician: Osmin Carlin MD Referring Physician: Osmin Carlin MD Technologist: Mejia Singh [facility] Room Number: 189-1 Indications: STROKE Rhythm: Technical Quality: Fair FINDINGS Left Ventricle Left ventricular cavity size normal. Left ventricular wall thickness mildly increased. No obvious regional wall motion abnormalities. Left ventricular ejection fraction is estimated at > 55 %. Right Ventricle Normal right ventricular size and function. Right Atrium Normal right atrial size. Left Atrium Mild left atrial dilatation. Mitral Valve Moderate mitral annular calcification. Trace to mild mitral regurgitation. Aortic Valve No aortic stenosis. Trace aortic regurgitation. Trileaflet aortic valve. Tricuspid Valve Structurally normal tricuspid valve. Trace tricuspid regurgitation. Unable to estimate the right ventricular systolic pressure. Pulmonic Valve Pulmonic valve not well visualized, grossly normal. Pericardium No pericardial effusion. Great Vessels Normal size aortic root. CONCLUSIONS Left ventricular cavity size normal. Left ventricular wall thickness mildly increased. No obvious regional wall motion abnormalities. Left ventricular ejection fraction is estimated at > 55 %. Normal right ventricular size and function. Mild left atrial dilatation. Unable to estimate the right ventricular systolic pressure. No pericardial effusion. Marquise Vanessa M.D. (Electronically Signed) Final Date: 20 January 2018 09:47 MEASUREMENTS (Male / Female) Normal Values 2D ECHO LV Diastolic Diameter PLAX 4.5 cm 4.2 - 5.9 / 3.9 - 5.3 cm LV Systolic Diameter PLAX 2.6 cm 2.1 - 4.0 cm LV Fractional Shortening PLAX 42.2 % 25 - 46 % LV Ejection Fraction 2D Teich 73.4 % IVS Diastolic Thickness 1.6 cm LVPW Diastolic Thickness 1.3 cm LV Relative Wall Thickness 0.6 RV Internal Dim ED PLAX 3.5 cm 1.9 - 3.8 cm LVOT Diameter 2.0 cm Aortic Root Diameter 3.1 cm LA Systolic Diameter LX 4.9 cm 3.0 - 4.0 / 2.7 - 3.8 cm LA Volume 74.0 cm 18 - 58 / 22 - 52 cm Ascending Aorta Diameter 3.5 cm DOPPLER AV Peak Velocity 182.0 cm/s AV Peak Gradient 13.2 mmHg AV Mean Velocity 131.0 cm/s AV Mean Gradient 8.0 mmHg AV Velocity Time Integral 33.8 cm LVOT Peak Velocity 123.0 cm/s LVOT Peak Gradient 6.1 mmHg LVOT Mean Velocity 80.4 cm/s LVOT Mean Gradient 3.0 mmHg LVOT Velocity Time Integral 26.3 cm LVOT Stroke Volume 82.6 cm AV Area Cont Eq vti 2.4 cm AV Area Cont Eq pk 2.1 cm MV Peak Velocity 117.0 cm/s MV Peak Gradient 5.5 mmHg MV Mean Velocity 74.4 cm/s MV Mean Gradient 2.0 mmHg Mitral E Point Velocity 105.0 cm/s Mitral A Point Velocity 114.0 cm/s Mitral E to A Ratio 0.9 MV PHT Velocity 99.1 cm/s MV Deceleration [place] 347.0 cm/s MV Pressure Half Time 85.7 ms MV Area PHT 2.6 cm MV Deceleration Time 243.0 ms TV Peak Velocity 229.5 cm/s TV Peak E Velocity 41.0 cm/s TV Peak A Velocity 46.6 cm/s TV E to A Ratio 0.9 Right Atrial Pressure 5.0 mmHg PV Peak Velocity 133.0 cm/s PV Peak Gradient 7.1 mmHg PV Mean Velocity 89.8 cm/s PV Mean Gradient 3.5 mmHg PV Velocity Time Integral 25.1 cm LV E' Lateral Velocity 6.5 cm/s Mitral E to LV E' Lateral Ratio 16.1 LV E' Septal Velocity 5.9 cm/s Mitral E to LV E' Septal Ratio 17.6
--- NOTE | 2018-01-20 11:00 | PN- Att Addend ---
Attending Addendum Attending Brief Note Patient seen and examined. Plan of care discussed with the medical team and the patient. Available lab work and radiology test reports were reviewed. Patient is currently awake alert sitting in chair and in good mood this morning. She denies any new complaints except for her existing tremors. Exam: General: Patient awake but appears confused and she is only partially oriented and appears without any distress; she has visible intention tremors CVS: S1 plus S2 without any murmur or gallops Chest: Few scattered crepitation without any wheeze. There is no respiratory distress. Abdomen: Soft non-tender, bowel sound present, no guarding or rebound [employer]: Awake alert and oriented and follows command appropriately. Pupils are both equal and reactive. Lower extremity shows weakness of for 4.5 over 5 right BIlaterally. Upper extremities power is 4.5 over 5 bilaterally Extremities: No edema; no clubbing or cyanosis noted Assessment * Difficulty with speech, suspected stroke * History of hypertension uncontrolled with hypertensive urgency * Hyperlipidemia * History diabetes * History of breast cancer * Intention tremors * Chronic renal failure stage III b with worsening of creatinine to 1.7 today Plan * Give IV fluids 1 L slowly * Recheck BP tomorrow * contin ASA * Contin Coumadin for now * MRI, to rule out new stroke given her symptoms * Continue PT * DVT prophylaxis * Continue antihypertensive regimen and monitor BP closely * Hold losartan given elevated creatinine * Continue hypertensive regimen * Plan of care discussed with the patient's family at the bedside * Prepare for discharge tomorrow Current Medications Sig/Roshan Start time Last Medication Dose Route Stop Time Status Admin Acetaminophen 650 MG .STK-MED ONE 01/19 1159 DC PO 01/19 1200 Acetaminophen 650 MG Q6P PRN 01/18 1630 AC 01/19 PO 1206 Amlodipine Besylate 10 MG DAILY 01/20 09 AC 01/20 PO 0829 Aspirin 81 MG DAILY 01/19 09 AC 01/20 PO 0829 Atorvastatin Calcium 80 MG 1700 01/18 1700 AC 01/19 PO 1724 Cholecalciferol 2,000 IU DAILY 01/19 900 AC 01/20 PO 08 Cyanocobalamin 1,000 MCG DAILY 01/19 09 AC 01/20 PO 0828 Fenofibrate 145 MG DAILY 01/19 09 AC 01/20 PO 08 Fish Oil 1,050 MG BID 01/18 2100 AC 01/20 PO 08 Gabapentin 400 MG QPM 01/18 2100 AC 01/19 PO 2127 Hydralazine HCl 50 MG 4 TIMES/DAY 01/19 1300 AC 01/20 PO 0829 Insulin Aspart 0 TIDAC 01/19 1700 AC 01/19 SC 1700 Isosorbide 60 MG BID 01/18 2300 AC 01/20 Mononitrate PO 08 Losartan Potassium 50 MG DAILY 01/19 09 AC 01/20 PO 08 Montelukast Sodium 10 MG DAILY 01/19 09 AC 01/20 PO 08 Patient Medication 1 ED ONE ONE 01/19 1700 DC Teaching ED 01/19 170 Potassium Chloride 20 MEQ DAILY 01/19 09 AC 01/20 PO 08 Warfarin Sodium 3 MG COUMADIN 170 ONE 01/19 1700 DC 01/19 PO 01/19 1701 1700 Laboratory Tests 01/20/18 0715: Anion Gap 12, Estimated GFR 28 L, BUN/Creatinine Ratio 35.9 H, PT 16.7 H, INR 1.53 H 01/19/18 0615: Anion Gap 14, Estimated GFR 47 L, BUN/Creatinine Ratio 33.6 H, Magnesium 1.8, PT 18.4 H, INR 1.68 H, CBC w Diff NO MAN DIFF REQ, RBC 4.08 L, MCV 91.6, MCH 30.6, MCHC 33.4, RDW 14.1, MPV 8.4, Gran % 74.1, Lymphocytes % 16.8 L, Monocytes % 6.5, Eosinophils % 1.9, Basophils % 0.7, Absolute Granulocytes 7.0 H, Absolute Lymphocytes 1.6, Absolute Monocytes 0.6, Absolute Eosinophils 0.2, Absolute Basophils 0.1 01/18/180: Troponin I 0.04 01/18/18 1730: Troponin I 0.03 01/18/18 1115: Anion Gap 13, Estimated GFR 43 L, BUN/Creatinine Ratio 35.0 H, Glucose 201 H, Calcium 10.0, Total Bilirubin 0.7, AST 23, ALT 26, Alkaline Phosphatase 36, Troponin I 0.04, Total Protein 6.8, Albumin 3.9, Globulin 2.9, Albumin/Globulin Ratio 1.3, Triglycerides 181 H, Cholesterol 131, LDL Cholesterol, Calc 65, HDL Cholesterol 30 L, Cholesterol/HDL Ratio 4, PT 19.8 H, INR 1.81 H, APTT 33, CBC w Diff NO MAN DIFF REQ, RBC 4.37, MCV 89.7, MCH 30.0, MCHC 33.5, RDW 13.9, MPV 8.1, Gran % 70.3, Lymphocytes % 20.4 L, Monocytes % 6.6, Eosinophils % 2.2, Basophils % 0.5, Absolute Granulocytes 6.5, Absolute Lymphocytes 1.9, Absolute Monocytes 0.6, Absolute Eosinophils 0.2, Absolute Basophils 0 Vital Signs Date Time Temp Pulse Resp B/P B/P Pulse O2 O2 Flow FiO2 Mean Ox Delivery Rate 01/20 829 97.7 57 18 164/42 01/20 0829 97.7 57 164/42 01/20 0828 57 164/42 01/20 0828 57 164/42 01/20 0650 97.7 57 18 136/64 94 Room Air 01/19 2232 98.3 44 18 164/94 94 01/19 1700 48 144/62 01/19 1448 98.7 48 20 144/62 96 Room Air 01/19 1206 96.6 43 20 162/48 01/19 1205 43 162/48 Intake & Output 01/20 1600 01/20 0800 01/20 0000 Intake Total 110 300 Output Total 150 Balance 110 150 Intake, IV 10 Intake, Oral 100 300 Output, Urine 150 Patient 210 lb Weight ECHO Left ventricular cavity size normal. Left ventricular wall thickness mildly increased. No obvious regional wall motion abnormalities. Left ventricular ejection fraction is estimated at > 55 %. Normal right ventricular size and function. Mild left atrial dilatation. Unable to estimate the right ventricular systolic pressure. No pericardial effusion.
--- NOTE | 2018-01-20 12:29 | MRI REPORT ---
EXAMINATION: MR BRAIN WITHOUT CONTRAST CLINICAL INFORMATION: Slurred speech, weakness, and confusion. Evaluate for infarct versus transient ischemic attack. COMPARISON: Brain MRI 09/06/2015. TECHNIQUE: MRI of the brain without contrast was obtained using routine sequences. FINDINGS: There is no acute territorial infarct. No pathological magnetic susceptibility artifact. Scattered ill-defined foci of T2 FLAIR signal hyperintense are visualized within the periventricular white matter. Intracranial vascular flow voids are grossly maintained. There is no intracranial mass effect or midline shift. No abnormal extra-axial collection. Lateral and third ventricles are proportionate to the subarachnoid spaces. No hydrocephalus. Midline structures including the cervicomedullary junction are normal. Bone marrow signal intensity is normal. There is no mastoid or middle ear effusion. Mild paranasal sinus disease primarily affecting the ethmoid air cells and maxillary sinus. Globes and orbits are symmetric. IMPRESSION: Scattered chronic small vessel ischemic changes within the periventricular white matter. No evidence of acute territorial infarct or hemorrhage.
--- NOTE | 2018-01-20 12:41 | PN- Cardiology ---
Subjective Subjective: Patient just returned from MRI. Reports she feels at her baseline. Objective Vital Signs and I&Os Vital Signs Date Time Temp Pulse Resp B/P B/P Pulse O2 O2 Flow FiO2 Mean Ox Delivery Rate 01/20 1215 57 170/46 01/20 0829 97.7 57 18 164/42 01/20 0829 97.7 57 164/42 01/20 0828 57 164/42 01/20 0828 57 164/42 01/20 0650 97.7 57 18 136/64 94 Room Air 01/19 2232 98.3 44 18 164/94 94 01/19 1700 48 144/62 01/19 1448 98.7 48 20 144/62 96 Room Air Intake & Output 01/20 1600 01/20 0801/20 0000 01/19 1600 01/19 0000 Intake Total 110 300 120 120 880 Output Total 150 500 450 Balance 110 150 120 -380 430 Intake, IV 10 Intake, Oral 100 300 120 120 880 Number 1 Bowel Movements Output, Urine 150 500 450 Patient 210 lb 210 lb Weight Physical Exam: General: no apparent distress. Alert. Eyes: No obvious scleral icterus. HEENT: No jugular venous distention or abnormal jugular venous pulsations. Cardiovascular: Normal intensity S1/S2. Regular bradycardia Respiratory: Lungs clear to auscultation bilaterally. Abdomen: Soft, nontender with no guarding or rebound tenderness. Musculoskeletal: No clubbing or cyanosis noted Skin: warm Neurologic: Resting tremor noted Lymph: No gross lymphadenopathy. Current Medications: Current Medications Sig/Roshan Start time Last Medication Dose Route Stop Time Status Admin Acetaminophen 650 MG Q6P PRN 01/18 1630 AC 01/19 PO 1206 Amlodipine Besylate 10 MG DAILY 01/20 09 AC 01/20 PO 0829 Aspirin 81 MG DAILY 01/19 900 AC 01/20 PO 0829 Atorvastatin Calcium 80 MG 1700 01/18 1700 AC 01/19 PO 1724 Cholecalciferol 2,000 IU DAILY 01/19 900 AC 01/20 PO 08 Cyanocobalamin 1,000 MCG DAILY 01/19 09 AC 01/20 PO 0828 Fenofibrate 145 MG DAILY 01/19 900 AC 01/20 PO 0829 Fish Oil 1,050 MG BID 01/18 2100 AC 01/20 PO 08 Gabapentin 400 MG QPM 01/18 2100 AC 01/19 PO 2128 Hydralazine HCl 50 MG 4 TIMES/DAY 01/19 1300 AC 01/20 PO 1215 Insulin Aspart 0 TIDAC 01/19 1700 AC 01/20 SC 1215 Isosorbide 60 MG BID 01/18 2300 AC 01/20 Mononitrate PO 08 Losartan Potassium 50 MG DAILY 01/19 0900 AC 01/20 PO 0828 Montelukast Sodium 10 MG DAILY 01/19 0900 AC 01/20 PO 0828 Patient Medication 1 ED ONE ONE 01/19 1700 DC Teaching ED 01/19 170 Potassium Chloride 20 MEQ DAILY 01/19 0900 AC 01/20 PO 0828 Warfarin Sodium 3 MG COUMADIN 1700 ONE 01/19 1700 DC 01/19 PO 01/19 170 1700 Results Last 48 Hrs of Labs/Mics: Laboratory Tests 01/20/18 0715: Anion Gap 12, Estimated GFR 28 L, BUN/Creatinine Ratio 35.9 H, PT 16.7 H, INR 1.53 H 01/19/18 0615: Anion Gap 14, Estimated GFR 47 L, BUN/Creatinine Ratio 33.6 H, Magnesium 1.8, PT 18.4 H, INR 1.68 H, CBC w Diff NO MAN DIFF REQ, RBC 4.08 L, MCV 91.6, MCH 30.6, MCHC 33.4, RDW 14.1, MPV 8.4, Gran % 74.1, Lymphocytes % 16.8 L, Monocytes % 6.5, Eosinophils % 1.9, Basophils % 0.7, Absolute Granulocytes 7.0 H, Absolute Lymphocytes 1.6, Absolute Monocytes 0.6, Absolute Eosinophils 0.2, Absolute Basophils 0.1 01/18/182299: Troponin I 0.04 01/18/18 1730: Troponin I 0.03 Recent Imaging Studies: Telemetry tracings were personally reviewed and show sinus bradycardia with episodes of Wenckebach and 2-1 block MRI Scattered chronic small vessel ischemic changes within the periventricular white matter. No evidence of acute territorial infarct or hemorrhage. Echocardiogram Left ventricular cavity size normal. Left ventricular wall thickness mildly increased. No obvious regional wall motion abnormalities. Left ventricular ejection fraction is estimated at > 55 %. Normal right ventricular size and function. Mild left atrial dilatation. Unable to estimate the right ventricular systolic pressure. No pericardial effusion. Marquise Vanessa M.D. (Electronically Signed) Final Date: 20 January 2018 09:47 Assessment/Plan Assessment/Plan 1. Known conduction system disease asymptomatic with periods of sinus bradycardia, Wenckebach and 2:1 heart block 2. Hypertension 3. Essential tremor 4. TIA with subtherapeutic INR 5. History of PE/DVT on Coumadin 6. Chronic shortness of breath possibly secondary to asthma. There is no evidence for congestive heart failure 7. Acute on chronic renal insufficiency Echocardiogram and MRI as above. She does have known conduction disease in the past which has always been asymptomatic. I had kept her off AV shar blockers in the past but the med record lists metoprolol on her medication list; it would confirm with her pharmacy that she was taking this medication as this may have exacerbated her baseline bradycardia. Creatinine reported at 1.7 today. Would certainly recommend holding her ARB for now. Might benefit from gentle IV hydration. INR remains subtherapeutic. Shlomo Vanessa MD [facility] Continue telemetry? Yes
[2018-01-20 14:30] VITALS: BP 170/60
[2018-01-20 22:35] VITALS: BP 160/60
[2018-01-21] VITALS (7 sets, daily range): BP systolic 122–172; BP diastolic 48–86
--- NOTE | 2018-01-21 07:13 | PN- Housestaff ---
See Addendum Subjective Follow-up For: BASHIR bradycardia TIA Complaints: no complaints Tele-Events Since Last Visit: sinus bradycardia HR high 20s-50s Subjective: patient has no symptoms from her bradycardia adequate PO intake, urinating normally Review of Systems Constitutional: Reports: see HPI. Objective Last 24 Hrs of Vital Signs/I&O Vital Signs Date Time Temp Pulse Resp B/P B/P Pulse O2 O2 Flow FiO2 Mean Ox Delivery Rate 01/21 0649 98.1 57 20 160/70 95 Room Air 01/20 2235 98.5 45 18 160/60 96 Room Air 01/20 2201 42 170/60 01/20 2200 42 170/60 01/20 1700 42 170/60 01/20 1430 97.5 42 18 170/60 96 Room Air 01/20 1215 57 170/46 01/20 0829 97.7 57 18 164/42 01/20 0829 97.7 57 164/42 01/20 0828 57 164/42 01/20 0828 57 164/42 Intake & Output 01/21 0800 01/21 0000 01/20 1600 Intake Total 110 300 580 Output Total 400 Balance 110 300 180 Intake, IV 10 100 Intake, Oral 100 300 480 Output, Urine 400 Patient 95.906 kg Weight Weight Bed scale Measurement Method Physical Exam General Appearance: Alert, Oriented X3, Cooperative, No Acute Distress Cardiovascular: Normal S1, Normal S2, No Murmurs, bradycardic Lungs: Clear to Auscultation, Normal Air Movement Abdomen: Normal Bowel Sounds, Soft, No Tenderness, No Masses Extremities: No Clubbing, No Cyanosis, No Edema, Normal Pulses Current Medications: Current Medications Sig/Roshan Start time Last Medication Dose Route Stop Time Status Admin Acetaminophen 650 MG Q6P PRN 01/18 1630 AC 01/19 PO 1206 Amlodipine Besylate 10 MG DAILY 01/20 09 AC 01/20 PO 0829 Aspirin 81 MG DAILY 01/19 900 AC 01/20 PO 0829 Atorvastatin Calcium 80 MG 1700 01/18 1700 AC 01/20 PO 1700 Cholecalciferol 2,000 IU DAILY 01/19 900 AC 01/20 PO 0828 Cyanocobalamin 1,000 MCG DAILY 01/19 900 AC 01/20 PO 0828 Fenofibrate 145 MG DAILY 01/19 900 AC 01/20 PO 0829 Fish Oil 1,050 MG BID 01/18 2100 AC 01/20 PO 2200 Gabapentin 400 MG QPM 01/18 2100 AC 01/20 PO 220 Hydralazine HCl 50 MG 4 TIMES/DAY 01/19 1300 AC 01/20 PO 2200 Insulin Aspart 0 TIDAC 01/19 1700 AC 01/20 SC 1215 Isosorbide 60 MG BID 01/18 2300 AC 01/20 Mononitrate PO 220 Losartan Potassium 50 MG DAILY 01/19 09 DC 01/20 PO 0828 Montelukast Sodium 10 MG DAILY 01/19 0900 AC 01/20 PO 08 Potassium Chloride 20 MEQ DAILY 01/19 0900 AC 01/20 PO 08 Sodium Chloride 500 ML .Q5H 01/20 1315 DC 01/20 IV 01/20 1814 1406 Warfarin Sodium 5 MG COUMADIN 1700 ONE 01/20 1700 DC 01/20 PO 01/20 1701 1852 Last 24 Hrs of Lab/Abraham Results Last 24 Hrs of Labs/Mics: Laboratory Tests 01/21/18 0610: Anion Gap 13, Estimated GFR 28 L, BUN/Creatinine Ratio 44.7 H, PT Pending, INR Pending Assessment/Plan Assessment: 87 year old female with PMH significant for DVT/PE on coumadin presents with altered mental status, slurred speech, and stroke evaluation BASHIR: Creatinine suddenly elevated to 1.7 yesterday from 1.1 ARB discontinued Given some intravenous fluid resuscitation Avoid nephrotoxins Repeat renal function remains 1.7 despite 500cc NS given TIA CT head and CTA were negative for an acute bleed, ischemia or thrombus TPA not given on coumadin Carotid dopplers negative for hemodynamically significant stenoses MRI brain scattered chronic small vessel ischemic change within periventricular white matter Continue aspirin and coumadin (INR subtherapeutic) Neurology consulted Bradycardia: second degree AV block Negative chronotropic agents held Continue other antihypertensives Cardiology consultation (Dr. Vanessa) Troponins negative x 3 May eventually need pacemaker for significant bradycardia with HR as low as [address] Hang Clay at [place] (Cards/EP) DM: Accuchecks TIDAC, last 24 hours 134-225 Novolog sliding scale insulin HTN: Avoid AV shar blocking agents Increased norvasc to 10mg daily and hydralazine from 25mg to 50mg Continue imdur and losartan Blood pressure better controlled on new regimen HLD: Started on statin because of TIA Reportedly has GI upset with statins, but no complaints at this time PE/DVT: Continue coumadin INR subtherapeutic 1.89 Coumadin 5mg today Diabetic diet DVT ppx-on coumadin DNR/DNI Problem List: 1. Benign hypertension 2. TIA (transient ischemic attack) 3. Renal insufficiency Pain Ratin Pain Location: n/a Pain Goal: Pain 4 or less Pain Plan: prn Tomorrow's Labs & Rationales: bep, pt/inr
[2018-01-21 08:32] LABS: PT 20.7 SEC (9.4-12.5)
--- NOTE | 2018-01-21 12:45 | PN- Cardiology ---
Subjective Subjective: Patient is feeling well today but does report some dizziness. Objective Vital Signs and I&Os Vital Signs Date Time Temp Pulse Resp B/P B/P Pulse O2 O2 Flow FiO2 Mean Ox Delivery Rate 01/21 08 50 130/86 01/21 0823 50 130/86 01/21 0823 50 130/86 01/21 0822 50 130/86 01/21 0800 Room Air 01/21 0649 98.1 57 20 160/70 95 Room Air 01/20 2235 98.5 45 18 160/60 96 Room Air 01/20 2201 42 170/60 01/20 2200 42 170/60 01/20 1700 42 170/60 01/20 1430 97.5 42 18 170/60 96 Room Air Intake & Output 01/21 1600 01/21 0801/21 0000 01/20 1600 01/20 0801/20 0000 Intake Total 110 300 580 110 300 Output Total 400 150 Balance 110 300 180 110 150 Intake, IV 10 100 10 Intake, Oral 100 300 480 100 300 Output, Urine 400 150 Patient 211 lb 210 lb Weight Weight Bed scale Measurement Method Physical Exam: General: no apparent distress. Alert. Eyes: No obvious scleral icterus. HEENT: No jugular venous distention or abnormal jugular venous pulsations. Cardiovascular: Normal intensity S1/S2. Regular bradycardia Respiratory: Lungs clear to auscultation bilaterally. Abdomen: Soft, nontender with no guarding or rebound tenderness. Musculoskeletal: No clubbing or cyanosis noted Skin: warm Neurologic: Resting tremor noted Lymph: No gross lymphadenopathy. Current Medications: Current Medications Sig/Roshan Start time Last Medication Dose Route Stop Time Status Admin Acetaminophen 650 MG Q6P PRN 01/18 1630 AC 01/19 PO 1206 Amlodipine Besylate 10 MG DAILY 01/20 09 AC 01/21 PO 0823 Aspirin 81 MG DAILY 01/19 09 AC 01/21 PO 0823 Atorvastatin Calcium 80 MG 1700 01/18 1700 AC 01/20 PO 1700 Cholecalciferol 2,000 IU DAILY 01/19 900 AC 01/21 PO 0824 Cyanocobalamin 1,000 MCG DAILY 01/19 09 AC 01/21 PO 0824 Fenofibrate 145 MG DAILY 01/19 900 AC 01/21 PO 0824 Fish Oil 1,050 MG BID 01/18 2100 AC 01/21 PO 08 Gabapentin 400 MG QPM 01/18 2100 AC 01/20 PO 2200 Hydralazine HCl 50 MG 4 TIMES/DAY 01/19 1300 AC 01/21 PO 0823 Insulin Aspart 0 TIDAC 01/19 1700 AC 01/20 SC 1215 Isosorbide 60 MG BID 01/18 2300 AC 01/21 Mononitrate PO 0823 Losartan Potassium 50 MG DAILY 01/19 0900 DC 01/20 PO 0828 Montelukast Sodium 10 MG DAILY 01/19 0900 AC 01/21 PO 0823 Phytonadione 10 MG ONCE ONE 01/21 1100 DC PO 01/21 1101 Potassium Chloride 20 MEQ DAILY 01/19 0900 AC 01/21 PO 0823 Sodium Chloride 500 ML .Q5H 01/20 1315 DC 01/20 IV 01/20 1814 1406 Warfarin Sodium 5 MG COUMADIN 1700 ONE 01/21 1700 CAN PO 01/21 1701 Warfarin Sodium 5 MG COUMADIN 1700 ONE 01/20 1700 DC 01/20 PO 01/20 1701 1852 Results Last 48 Hrs of Labs/Mics: Laboratory Tests 01/21/18 0610: Anion Gap 13, Estimated GFR 28 L, BUN/Creatinine Ratio 44.7 H, PT 20.7 H, INR 1.89 H 01/20/18 0715: Anion Gap 12, Estimated GFR 28 L, BUN/Creatinine Ratio 35.9 H, PT 16.7 H, INR 1.53 H Recent Imaging Studies: Telemetry tracings were personally reviewed; shows sinus rhythm and sinus bradycardia with episodes of Wenckebach and also 2-1 heart block Assessment/Plan Assessment/Plan 1. Known conduction system disease asymptomatic with periods of sinus bradycardia, Wenckebach and 2:1 heart block 2. Hypertension 3. Essential tremor 4. TIA with subtherapeutic INR 5. History of PE/DVT on Coumadin 6. Chronic shortness of breath possibly secondary to asthma. There is no evidence for congestive heart failure 7. Acute on chronic renal insufficiency The patient did have some dizziness today and despite holding the low-dose beta- jodee she still has significant bradycardia with the episodic 2-1 AV block on telemetry. Risks versus benefits of permanent pacemaker were discussed at length and at this point she would like to proceed with the procedure. We are given her some vitamin K today and will recheck an INR early tomorrow morning. She should be kept n.p.o. after midnight. Continue to monitor the creatinine while holding the ARB. Shlomo Vanessa MD [facility] Continue telemetry? Yes
[2018-01-22 05:25] LABS: PT 18.4 SEC (9.4-12.5)
[2018-01-22 07:23] VITALS: BP 130/70
--- NOTE | 2018-01-22 07:27 | PN- Housestaff ---
Subjective Follow-up For: BASHIR bradycardia TIA Complaints: no complaints Tele-Events Since Last Visit: Sinus bradycardia heart rate 50 Subjective: Patient was seen and examined at bedside, denies any complaints, n.p.o. at midnight for pacemaker placement, INR today is 1.68 Review of Systems Constitutional: Reports: see HPI. Objective Last 24 Hrs of Vital Signs/I&O Vital Signs Date Time Temp Pulse Resp B/P B/P Pulse O2 O2 Flow FiO2 Mean Ox Delivery Rate 01/22 1040 56 142/80 01/22 1039 98.0 56 142/80 01/22 1039 56 142/80 01/22 0808 56 142/80 01/22 0800 Room Air 01/22 0723 98.0 60 20 130/70 95 Room Air 01/21 2307 150/80 01/21 2225 98.0 50 20 170/80 97 01/21 2100 50 170/80 01/21 2059 50 170/80 01/21 1750 77 172/50 01/21 1748 77 172/50 01/21 1413 98.1 50 20 170/48 96 Room Air Intake & Output 01/22 1600 01/22 0800 01/22 0000 Intake Total 360 Output Total 400 650 Balance -400 -290 Intake, Oral 360 Output, Urine 400 650 Patient 213 lb 213 lb Weight Physical Exam General Appearance: Alert, Oriented X3, Cooperative, No Acute Distress HEENT: Atraumatic, PERRLA, EOMI, Mucous Membr. moist/pink Cardiovascular: Normal S1, Normal S2 Lungs: Clear to Auscultation Abdomen: Normal Bowel Sounds, Soft, No Tenderness Extremities: No Clubbing, No Cyanosis, No Edema Current Medications: Current Medications Sig/Roshan Start time Last Medication Dose Route Stop Time Status Admin Acetaminophen 650 MG Q6P PRN 01/18 1630 AC 01/19 PO 1206 Amlodipine Besylate 10 MG DAILY 01/20 09 AC 01/21 PO 0823 Aspirin 81 MG DAILY 01/19 09 AC 01/21 PO 0823 Atorvastatin Calcium 80 MG 1700 01/18 1700 DC 01/20 PO 1700 Cholecalciferol 2,000 IU DAILY 01/19 09 AC 01/21 PO 0824 Cyanocobalamin 1,000 MCG DAILY 01/19 09 AC 01/21 PO 0824 Dextrose/Sodium 1,000 ML Q13H 01/22 0800 AC 01/22 Chloride IV 0804 Fenofibrate 145 MG DAILY 01/19 0900 AC 01/21 PO 0824 Fish Oil 1,050 MG BID 01/18 2100 AC 01/21 PO 2058 Gabapentin 400 MG QPM 01/18 2100 AC 01/21 PO 2058 Hydralazine HCl 50 MG 4 TIMES/DAY 01/19 1300 AC 01/21 PO 2100 Insulin Aspart 0 TIDAC 01/19 1700 DC 01/21 SC 1750 Insulin Human Regular 0 Q6 01/21 2359 AC 01/22 SC 1121 Isosorbide 60 MG BID 01/18 2300 AC 01/21 Mononitrate PO 2058 Montelukast Sodium 10 MG DAILY 01/19 0900 AC 01/21 PO 0823 Patient Medication 1 ED ONE ONE 01/21 1530 DC Teaching ED 01/21 1531 Patient Medication 1 ED ONE ONE 01/21 1530 DC Teaching ED 01/21 1531 Patient Medication 1 ED ONE ONE 01/21 1530 DC Teaching ED 01/21 1531 Potassium Chloride 20 MEQ DAILY 01/19 0900 AC 01/21 PO 0823 Last 24 Hrs of Lab/Abraham Results Last 24 Hrs of Labs/Mics: Laboratory Tests 01/22/18 0440: Anion Gap 9, Estimated GFR 27 L, BUN/Creatinine Ratio 45.6 H, PT 18.4 H, INR 1.68 H Assessment/Plan Assessment: 87 year old female with PMH significant for DVT/PE on coumadin presents with altered mental status, slurred speech, and stroke evaluation BASHIR: Creatinine continues to be elevated at 1.8 Continue to hold ARBs Given some intravenous fluid resuscitation Avoid nephrotoxins * If kidney function does not improve we will consider renal ultrasound TIA CT head and CTA were negative for an acute bleed, ischemia or thrombus TPA not given on coumadin Carotid dopplers negative for hemodynamically significant stenoses MRI brain scattered chronic small vessel ischemic change within periventricular white matter Continue aspirin and coumadin (INR subtherapeutic) Neurology consulted Bradycardia: second degree AV block Negative chronotropic agents held Continue other antihypertensives Cardiology consultation (Dr. Vanessa) Troponins negative x 3 May eventually need pacemaker for significant bradycardia with HR as low as [address] Hang Clay at [facility] [place] (Cards/EP) DM: Accuchecks TIDAC, last 24 hours 134-225 Novolog sliding scale insulin HTN: Avoid AV shar blocking agents Increased norvasc to 10mg daily and hydralazine from 25mg to 50mg Continue imdur and losartan Blood pressure better controlled on new regimen HLD: Started on statin because of TIA Reportedly has GI upset with statins, but no complaints at this time PE/DVT: INR subtherapeutic 1.6 Coumadin was held yesterday for pacemaker placement today The plan is to restart Coumadin tomorrow (Coumadin 3 mg was ordered by surgical PA for tomorrow) Problem List: 1. TIA (transient ischemic attack) 2. CVA (cerebral vascular accident) 3. Renal insufficiency Pain Ratin Pain Location: n/a Pain Goal: Remain pain free Pain Plan: pathway Tomorrow's Labs & Rationales: cbc bep inr
[2018-01-22 08:08] VITALS: BP 142/80
--- NOTE | 2018-01-22 10:43 | PN- Cardiology ---
Subjective Subjective: Feeling well today. Objective Vital Signs and I&Os Vital Signs Date Time Temp Pulse Resp B/P B/P Pulse O2 O2 Flow FiO2 Mean Ox Delivery Rate 01/22 0808 56 142/80 01/22 0800 Room Air 01/22 0723 98.0 60 20 130/70 95 Room Air 01/21 2307 150/80 01/21 2225 98.0 50 20 170/80 97 01/21 2100 50 170/80 01/21 2059 50 170/80 01/21 1750 77 172/50 01/21 1748 77 172/50 01/21 1413 98.1 50 20 170/48 96 Room Air 01/21 1253 51 150/56 01/21 1250 51 150/56 Intake & Output 01/22 1600 01/22 0801/22 0000 01/21 1600 01/21 0801/21 0000 Intake Total 360 660 110 300 Output Total 400 650 800 Balance -400 -290 -140 110 300 Intake, IV 10 Intake, Oral 360 660 100 300 Output, Urine 400 650 800 Patient 213 lb 213 lb 211 lb Weight Weight Bed scale Measurement Method Physical Exam: General: no apparent distress. Alert. Eyes: No obvious scleral icterus. HEENT: No jugular venous distention or abnormal jugular venous pulsations. Cardiovascular: Normal intensity S1/S2. Regular bradycardia Respiratory: Lungs clear to auscultation bilaterally. Abdomen: Soft, nontender with no guarding or rebound tenderness. Musculoskeletal: No clubbing or cyanosis noted Skin: warm Neurologic: Resting tremor noted Lymph: No gross lymphadenopathy. Current Medications: Current Medications Sig/Roshan Start time Last Medication Dose Route Stop Time Status Admin Acetaminophen 650 MG Q6P PRN 01/18 1630 AC 01/19 PO 1206 Amlodipine Besylate 10 MG DAILY 01/20 0900 AC 01/21 PO 0823 Aspirin 81 MG DAILY 01/19 09 AC 01/21 PO 0823 Atorvastatin Calcium 80 MG 1700 01/18 1700 DC 01/20 PO 1700 Cholecalciferol 2,000 IU DAILY 01/19 09 AC 01/21 PO 0824 Cyanocobalamin 1,000 MCG DAILY 01/19 09 AC 01/21 PO 0824 Dextrose/Sodium 1,000 ML Q13H 01/22 08 AC 01/22 Chloride IV 0804 Fenofibrate 145 MG DAILY 01/19 09 AC 01/21 PO 0824 Fish Oil 1,050 MG BID 01/18 2100 AC 01/21 PO 2058 Gabapentin 400 MG QPM 01/18 2100 AC 01/21 PO 2058 Hydralazine HCl 50 MG 4 TIMES/DAY 01/19 1300 AC 01/21 PO 2100 Insulin Aspart 0 TIDAC 01/19 1700 DC 01/21 SC 1750 Insulin Human Regular 0 Q6 01/21 2359 AC 01/22 SC 0609 Isosorbide 60 MG BID 01/18 2300 AC 01/21 Mononitrate PO 2058 Montelukast Sodium 10 MG DAILY 01/19 0900 AC 01/21 PO 0823 Patient Medication 1 ED ONE ONE 01/21 1530 DC Teaching ED 01/21 1531 Patient Medication 1 ED ONE ONE 01/21 1530 DC Teaching ED 01/21 1531 Patient Medication 1 ED ONE ONE 01/21 1530 DC Teaching ED 01/21 1531 Phytonadione 10 MG ONCE ONE 01/21 1100 DC 01/21 PO 01/21 1101 1253 Potassium Chloride 20 MEQ DAILY 01/19 0900 AC 01/21 PO 0823 Warfarin Sodium 5 MG COUMADIN 1700 ONE 01/21 1700 CAN PO 01/21 1701 Results Last 48 Hrs of Labs/Mics: Laboratory Tests 01/22/18 0440: Anion Gap 9, Estimated GFR 27 L, BUN/Creatinine Ratio 45.6 H, PT 18.4 H, INR 1.68 H 01/21/18 0610: Anion Gap 13, Estimated GFR 28 L, BUN/Creatinine Ratio 44.7 H, PT 20.7 H, INR 1.89 H Recent Imaging Studies: Telemetry tracings were personally reviewed and show sinus bradycardia with periods of 2-1 block Assessment/Plan Assessment/Plan 1. Known conduction system disease asymptomatic with periods of sinus bradycardia, Wenckebach and 2:1 heart block 2. Hypertension 3. Essential tremor 4. TIA with subtherapeutic INR 5. History of PE/DVT on Coumadin 6. Chronic shortness of breath possibly secondary to asthma. There is no evidence for congestive heart failure 7. Acute on chronic renal insufficiency Doing well but still with persistent bradycardia and intermittent 2-1 block despite being off the beta-jodee. Plan is to proceed with permanent pacemaker today. Plan to resume Coumadin following permanent pacemaker. Creatinine does not appear to be improving despite holding her ARB; may need to consider renal ultrasound. Shlomo Vanessa MD FAC Continue telemetry? Yes
--- NOTE | 2018-01-22 13:23 | PN- Att Addend ---
Attending Addendum Attending Brief Note 87F PMH PE / DVT on coumadin, hypertension, hyperlipidemia, insulin-dependent diabetes mellitus, essential tremor, irritable bowel syndrome, peripheral vascular disease presenting initially with altered mental status, slurred speech , right facial droop, not a candidate for tPA due to Coumadin, no CVA found on CTA/MRI head, with improvement in all symptoms, found to be significantly bradycardic. Patient is doing well today, no complaints. She remains in sinus bradycardia. 1. TIA 2. Symptomatic bradycardia Plan - Continue on telemetry - Will go for pacemaker placement today - Can restart Coumadin per cardiology recommendations - Continue remaining home medications - DVT PPx - Continue to work with PT
--- NOTE | 2018-01-22 15:10 | RADIOLOGY REPORT ---
EXAMINATION: XR PORTABLE CHEST CLINICAL INFORMATION: Status post pacemaker placement COMPARISON: 01/27/[address] scan TECHNIQUE: Portable AP view of the chest was obtained. FINDINGS: The x-ray is taken with lordotic projection. Hypoventilatory exam. The cardiomediastinal silhouette is stable, considering the differences in modality and shallow depth of respiration. There is prominence of the mediastinal silhouette, likely projectional. There is a left pectoral dual-lead pacemaker in place with leads projecting over the right atrium and right ventricle. EKG leads also project over the thorax. No focal pulmonary consolidation, sizable pleural effusion or pneumothorax. IMPRESSION: Status post pacemaker placement.
--- NOTE | 2018-01-22 15:57 | Operative Report ---
Operative/Inv Procedure Report Surgery Date: 01/22/18 Name of Procedure: MRI compatible dual-chamber pacemaker Pre-Operative Diagnosis: Heart block and symptomatic bradycardia Post-Operative Diagnosis: Third-degree heart block Estimated Blood Loss: less than 50ml Surgeon/Solar Manufacturer'S Representative: Sylvester Zacarias MD Anesthesia: local monitored anesthesi Operative/Procedure Note Note: After placing monitoring lines patient's left chest and shoulder were prepped and draped in a sterile fashion. 1% lidocaine was used for local anesthetic. Incision was made in the deltopectoral groove and carried down to the prepectoralis fascia. The cephalic vein was encountered in the deltopectoral groove and was encircled with a silk tie. The cephalic vein was occluded and a venotomy was made. A wire was passed and guided into the right atrium under fluoroscopic guidance. A 9 Kenyan sheath dilator was passed over the wire and the wire was retained. A Medtronic ventricular pacing lead model #[id number] was then advanced into the pulmonary outflow tract under fluoroscopic guidance. It was withdrawn into the right ventricular cavity and positioned at the apex. R waves were measured at 10 mV. The pacing threshold was 0.3 V with an impedance of 772 ohms. A 7 Kenyan sheath dilator was then passed over the retained wire and a preformed atrial lead Medtronic model #[id number] was positioned in the right atrial appendage under fluoroscopic guidance. P waves were measured at 6 mV and the pacing threshold was 0.4 V with an impedance of 562 ohms. The leads were secured by tying them to the cephalic vein and then sutured to the prepectoralis fascia. The leads were then connected to a Medtronic dual- chamber MRI compatible pacemaker. A pacemaker pocket was fashioned above the prepectoralis fascia. Hemostasis was achieved with electrocautery and surgical clips. The wound was irrigated with antibiotic irrigation. The wound was then closed in layers with deep Vicryl suture followed by running Vicryl subcuticular suture. The patient tolerated procedure well and was brought to the recovery room awake in stable condition. CC: Otf ULLOA,Marquise
[2018-01-22 16:00] VITALS: BP 138/56
--- NOTE | 2018-01-22 16:02 | Cons- Thoracic Surgery ---
General Information and HPI Consulting Request Date of Consult: 01/21/18 Requested By: Phi Padron MD Reason for Consult: Evaluate symptomatic bradycardia for permanent pacemaker placement Source of Information: patient, family, old records, PCP Exam Limitations: no limitations History of Present Illness: The patient is an 87-year-old woman admitted with what was felt to be a TIA presenting with some slurred speech. She has known heart block and bradycardia and is been followed by cardiology closely as an outpatient. During the course of her hospitalization she developed some bradycardia and was showing some presyncopal symptoms. Given these findings and her chronic conduction problems she is recommended for pace maker placement. Allergies/Medications Allergies: Coded Allergies: Sulfa (Sulfonamide Antibiotics) (Severe, ANAPHYLAXIS 04/05/16) STATINS (BAD REAXCTION 01/27/17) YUKO Inhibitors (Intermediate, COUGH 04/05/16) Home Med List: Amlodipine Besylate 5 MG TABLET 1 TAB PO DAILY HEART (Reported) Cholecalciferol (Vitamin D3) (Vitamin D) 2,000 UNIT TABLET 1 TAB PO DAILY SUPPLEMENT (Reported) Cyanocobalamin (Vitamin B-12) 1,000 MCG TABLET 1 TAB PO DAILY VITAMIN SUPPORT (Reported) Fenofibrate 150 MG CAPSULE 1 CAP PO Q48 CHOLESTEROL/TRIGLYCERIDES (Reported) Gabapentin 400 MG CAPSULE 1 CAP PO QPM DYSARTHRIA (Reported) Hydralazine HCl 25 MG TABLET 1 TAB PO 4 TIMES/DAY HEART (Reported) Indapamide 2.5 MG TABLET 1 TAB PO DAILY BP (Reported) Insulin Detemir (Levemir) (Unknown Strength) VIAL (Unknown Dose) DM (Reported ) Isosorbide Mononitrate (Isosorbide Mononitrate ER) 60 MG TAB.ER.24H 1 TAB PO TUES THURS SAT HEART (Reported) Liraglutide (Victoza 3-Sam) 0.6 MG/0.1 ML (18 MG/3 ML) PEN.INJCTR 0.6 MG SC DAILY DIABETES (Reported) Metoprolol Succ XL (Toprol XL) 25 MG TAB 0.5 TAB PO QPM HTN (Reported) Montelukast Sodium 10 MG TABLET 1 TAB PO DAILY ALLERGIES/RESPIRATORY ( Reported) [place]-3 Acid Ethyl Esters (Lovaza) 1 GRAM CAPSULE 1 CAP PO BID CHOLESTEROL ( Reported) Potassium Chloride (K-Tab ER) 20 MEQ TABLET.ER 1 TAB PO DAILY SUPPLEMENT ( Reported) Valsartan (Diovan) 320 MG TABLET 1 TAB PO DAILY HEART/BP (Reported) Warfarin Sodium (Coumadin) 3 MG TABLET 1 TAB PO SAT BLOOD THINNER (Reported) Warfarin Sodium (Coumadin) 3 MG TABLET 0.5 TAB PO Thursday PE ( Reported) Current Medications: Current Medications Sig/Roshan Start time Last Medication Dose Route Stop Time Status Admin Acetaminophen 1,000 MG Q6H 01/22 1400 AC N/A 1 UNIT IV 01/23 0814 Acetaminophen 650 MG Q6P PRN 01/18 1630 DC 01/19 PO 1206 Amlodipine Besylate 10 MG DAILY 01/20 0900 AC 01/21 PO 0823 Aspirin 81 MG DAILY 01/19 0900 AC 01/21 PO 0823 Atorvastatin Calcium 80 MG 1700 01/18 1700 DC 01/20 PO 1700 Cefazolin Sodium 2,000 MG IQ8 01/22 2000 CAN IV 01/23 0801 Cefazolin Sodium 2 GM Q8H 01/22 2000 AC N/A 1 UNIT IV 01/23 0429 Cholecalciferol 2,000 IU DAILY 01/19 0900 AC 01/21 PO 0824 Cyanocobalamin 1,000 MCG DAILY 01/19 0900 AC 01/21 PO 0824 Dextrose/Sodium 1,000 ML Q13H 01/22 0800 AC 01/22 Chloride IV 0804 Fenofibrate 145 MG DAILY 01/19 0900 AC 01/21 PO 0824 Fish Oil 1,050 MG BID 01/18 2100 AC 01/21 PO 2058 Gabapentin 400 MG QPM 01/18 2100 AC 01/21 PO 2058 Hydralazine HCl 50 MG 4 TIMES/DAY 01/19 1300 AC 01/21 PO 2100 Insulin Aspart 0 TIDAC 01/19 1700 DC 01/21 SC 1750 Insulin Human Regular 1 UNITS .STK-MED ONE 01/22 0607 DC IV 01/22 0608 Insulin Human Regular 0 Q6 01/21 2359 AC 01/22 SC 1121 Isosorbide 60 MG BID 01/18 2300 AC 01/21 Mononitrate PO 2058 Montelukast Sodium 10 MG DAILY 01/19 0900 AC 01/21 PO 0823 Oxycodone HCl 5 MG Q4-6 PRN PRN 01/22 1400 AC PO Oxycodone HCl 10 MG Q4-6 PRN PRN 01/22 1400 AC PO Potassium Chloride 20 MEQ DAILY 01/19 0900 AC 01/21 PO 0823 Warfarin Sodium 3 MG COUMADIN 1700 ONE 01/23 1700 AC PO 01/23 1701 Past History Medical History Neurological: ADULT TREMORS EENT: NONE Cardiovascular: hypertension, hyperlipidemia Respiratory: pulmonary embolism Gastrointestinal: diverticulitis, irritable bowel syndrome, peptic ulcer disease , KIDNEY STONES Hepatic: NONE Renal: NONE Musculoskeletal: NONE Psychiatric: NONE Endocrine: diabetes Blood Disorders: PE Cancer(s): breast cancer [employer] FAM[employer] MEMBER/Reproductive: NONE Surgical History Pertinent Surgical History: appendectomy, cholecystectomy, hernia repair- incisional, LUMPECTOMY BL CARPAL TUNNEL R ROTATOR CUFF GALLBLADDER CATARACTS BL Psychosocial History Services at Home: None Smoking Status: Never Smoked Power of Enrollment Services Vice President/HCP? yes Name of POA/HCP: Her Daughter Functional Ability ADLs Independent: dressing, eating, toileting, bathing. Ambulation: cane Review of Systems Review of Systems: Review of systems notable for the general problem of dizziness and lightheadedness that came during this hospitalization. She has had no fevers night sweats or chills. There is been no yomaira syncopal episodes while in the hospital. She has had no chest pain and no dyspnea. The rest of her 12 point review of systems is notable only for a chronic tremor and is otherwise unremarkable. Exam & Diagnostic Data Vital Signs and I&O Vital Signs Date Time Temp Pulse Resp B/P B/P Pulse O2 O2 Flow FiO2 Mean Ox Delivery Rate 01/22 1040 56 142/80 01/22 1039 98.0 56 142/80 01/22 1039 56 142/80 01/22 0808 56 142/80 01/22 0800 Room Air 01/22 0723 98.0 60 20 130/70 95 Room Air 01/21 2307 150/80 01/21 2225 98.0 50 20 170/80 97 01/21 2100 50 170/80 01/21 2059 50 170/80 01/21 1750 77 172/50 01/21 1748 77 172/50 Intake & Output 01/22 1600 01/22 0800 01/22 0000 01/21 1600 01/21 0800 01/21 0000 Intake Total 535 360 660 110 300 Output Total 700 400 650 800 Balance -165 -400 -290 -140 110 300 Intake, IV 535 10 Intake, Oral 360 660 100 300 Output, Urine 700 400 650 800 Patient 213 lb 213 lb 211 lb Weight Weight Bed scale Measurement Method Physical Exam: On physical examination she appears well. Her skin is warm and well perfused no suspicious lesions noted. The sclerae are anicteric and mucous membranes are moist. There is no cervical or subclavicular lymphadenopathy. Her breath sounds are clear and full bilaterally with no wheezes rhonchi noted. The cardiac exam shows a regular rhythm and rate with a bradycardia and no murmurs or extra sounds. The abdomen is soft and nontender with no masses. The periphery shows no cyanosis or clubbing. Her neurologic exam is notable for tremor and no focal motor or sensory deficits. Last 24 Hours of Labs: Laboratory Tests 01/22 0440 Chemistry Sodium (137 - 145 mmol/L) 132 L Potassium (3.5 - 5.1 mmol/L) 4.9 Chloride (98 - 107 mmol/L) 101 Carbon Dioxide (22 - 30 mmol/L) 22 Anion Gap (5 - 16) 9 BUN (7 - 17 mg/dL) 82 H Creatinine (0.5 - 1.0 mg/dL) 1.8 H Estimated GFR (>60 ml/min) 27 L BUN/Creatinine Ratio (7 - 25 %) 45.6 H Coagulation PT (9.4 - 12.5 SEC) 18.4 H INR (0.90 - 1.19) 1.68 H Other Results: She has episode of first and second-degree heart block along with some episodes which might be a complete heart block. She generally runs a sinus bradycardia with a rate in the low 50s. Assessment/Plan Assessment/Plan 87-year-old woman with symptomatic bradycardia in the setting of first and second-degree heart block and possible episodes of third-degree heart block. I think a permanent pacemaker is indicated given the symptoms associated with her bradycardia and the TIA which may have been an insufficiency problem rather than an embolic problem. I explained the risks and benefits of permanent pacemaker placement to her and her family. There are the usual associated risks of bleeding and fraction along with the risk of pneumothorax or cardiac perforation. She understands the risks and agrees to the procedure. She will be given vitamin K to reverse her Coumadin and we will check an INR in the morning with plans tomorrow for permanent pacemaker placement with an MRI dual-chamber device. Consult Acknowledgment - Thank you for your consult request.
--- NOTE | 2018-01-22 16:27 | RADIOLOGY REPORT ---
EXAMINATION:\H\ \N\XR CHEST CLINICAL INFORMATION: Cardiac pacemaker placement COMPARISON: Chest CT from 01/27/2017 TECHNIQUE: Intraoperative fluoroscopic imaging of the chest utilized for cardiac pacemaker placement. Fluoroscopy time: 5.8 minutes. Dose: 3.25 mGycm2 Number of saved images: 7 FINDINGS: Please refer to the operative report regarding the details from the cardiac pacemaker placement. The patient received a left-sided prepectoral pacemaker and transvenous leads extent to the right atrium and right ventricle. IMPRESSION: Fluoroscopic imaging of the chest was required at time of cardiac pacemaker insertion.
--- NOTE | 2018-01-22 18:45 | ULTRASOUND REPORT ---
EXAMINATION: US RETROPERITONEAL COMPLETE (RENAL) CLINICAL INFORMATION: History of kidney stones, worsening renal function. COMPARISON: None TECHNIQUE: Real-time imaging of the kidneys and bladder. FINDINGS: RIGHT KIDNEY: 11.1 x 5.8 x 6.4 cm (SAG x AP x TRV). The kidney is normal in size, contour, and echogenicity. Renal cortical thickness is normal. No calculi or focal solid parenchymal lesions. No hydronephrosis. Cyst upper pole measures 19 mm. More central similar lesion mid pole measures 25 mm favoring a parapelvic cyst. No definite caliectasis. LEFT KIDNEY: 8.7 x 5.7 x 5.7 cm (SAG x AP x TRV). The kidney is normal in size, contour, and echogenicity. Renal cortical thickness is normal. No calculi or focal parenchymal lesions. No hydronephrosis. BLADDER: Well-distended and normal. Bilateral ureteral jets are demonstrated. Prevoid bladder volume is 128 mL. Postvoid bladder volume is not calculated. IMPRESSION: Limited imaging demonstrates no definite hydronephrosis. No stones. Cystic lesion centrally right kidney suggesting parapelvic cysts. Correlate clinically and consider further cross sectional imaging as warranted.
[2018-01-23] VITALS: BP 138/60
[2018-01-23 06:30] VITALS: BP 150/68
[2018-01-23 08:27] LABS: ABSOLUTE BASOPHIL COUNT 0 /CUMM (0.0-0.2); ABSOLUTE EOSINOPHIL COUNT 0.4 /CUMM (0.0-0.7); ABSOLUTE GRANULOCYTE CT 4.5 /CUMM (1.4-6.5); ABSOLUTE LYMPH COUNT 1.3 /CUMM (1.2-3.4); ABSOLUTE MONOCYTE COUNT 0.7 /CUMM (0.10-0.60); BASOPHIL % 0.4 % (0.0-2.0); EOSINOPHIL % 5.2 % (0-5); GRANULOCYTE % 66.2 % (42.2-75.2); HEMATOCRIT 35.1 % (37-47); MEAN CORPUSCULAR HGB 30.4 PG (27.0-31.0); MEAN CORPUSCULAR HGB CONC 33.5 G/DL (33.0-37.0); MEAN PLATELET VOLUME 8.5 FL (7.4-10.4); PLATELET COUNT 210 /CUMM (130-400); RBC DISTRIBUTION WIDTH 14.5 % (11.5-14.5); RED BLOOD CELL CT 3.86 /CUMM (4.20-5.40); WHITE BLOOD CELL COUNT 6.9 /CUMM (4.8-10.8)
[2018-01-23 08:47] LABS: PT 14.1 SEC (9.4-12.5)
--- NOTE | 2018-01-23 08:48 | PN- Housestaff ---
Dionisio ULLOA,Nataliia 01/23/18 0848: Subjective Follow-up For: BASHIR bradycardia TIA Tele-Events Since Last Visit: s pacing 62- Subjective: patient states that she is having an easier time speaking, less weakness in the mouth and face. no weakness in the body anywhere. 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 Review of Systems Constitutional: Reports: weakness. Cardiovascular: Reports: no symptoms ( ). Respiratory: Reports: no symptoms. Gastrointestinal: Reports: no symptoms. Musculoskeletal: Reports: joint pain. Neurological/Psychological: Reports: weakness. Objective Last 24 Hrs of Vital Signs/I&O Vital Signs Date Time Temp Pulse Resp B/P B/P Pulse O2 O2 Flow FiO2 Mean Ox Delivery Rate 01/23 2228 68 174/60 01/23 2215 98.4 76 19 166/100 95 01/23 2018 81 186/62 01/23 2015 81 186/62 01/23 1742 65 176/110 01/23 1417 98.9 77 20 142/70 94 01/23 1238 80 168/58 01/23 0836 69 144/52 01/23 0836 69 144/52 01/23 0835 69 144/52 01/23 0630 97.3 67 20 150/68 95 Intake & Output 01/24 0800 01/24 0000 01/23 1600 Intake Total 240 740 Output Total 475 400 Balance -235 340 Intake, IV 120 Intake, Oral 240 620 Output, Urine 475 400 Patient 214 lb Weight Physical Exam General Appearance: Alert, Oriented X3, Cooperative, No Acute Distress Skin: No Rashes, No Breakdown, No Significant Lesion Skin Temp/Moisture Exam: Warm/Dry Sepsis Skin Exam (color): Normal for Ethnicity Cardiovascular: Regular Rate, Normal S1, Normal S2, No Murmurs Lungs: Clear to Auscultation, Normal Air Movement Abdomen: Normal Bowel Sounds, Soft, No Tenderness Neurological: Normal Speech, Strength at 5/5 X4 Ext, Normal Tone, Sensation Intact, Cranial Nerves 3-12 NL, Reflexes 2+ Extremities: No Clubbing, No Cyanosis, No Edema Current Medications: Current Medications Sig/Roshan Start time Last Medication Dose Route Stop Time Status Admin Acetaminophen 500 MG Q6P PRN 01/23 1545 AC 01/23 PO 2018 Acetaminophen 650 MG ONCE ONE 01/23 1315 DC 01/23 PO 01/23 1316 1353 Acetaminophen 1,000 MG Q6H 01/22 1400 DC 01/23 N/A 1 UNIT IV 01/23 0814 0827 Amlodipine Besylate 10 MG DAILY 01/20 0900 AC 01/23 PO 0835 Aspirin 81 MG DAILY 01/19 0900 AC 01/23 PO 0829 Cefazolin Sodium 2 GM Q8H 01/22 2000 DC 01/23 N/A 1 UNIT IV 01/23 0429 0329 Cholecalciferol 2,000 IU DAILY 01/19 0900 AC 01/23 PO 0831 Cyanocobalamin 1,000 MCG DAILY 01/19 0900 AC 01/23 PO 0830 Fenofibrate 145 MG DAILY 01/19 09 AC 01/23 PO 0830 Fish Oil 1,050 MG BID 01/18 2100 AC 01/23 PO 2014 Gabapentin 400 MG QPM 01/18 2100 AC 01/23 PO 2015 Hydralazine HCl 50 MG 4 TIMES/DAY 01/19 1300 AC 01/23 PO 2018 Insulin Aspart 0 TIDAC 01/22 1700 AC 01/23 SC 1741 Isosorbide 60 MG BID 01/18 2300 AC 01/23 Mononitrate PO 2014 Montelukast Sodium 10 MG DAILY 01/19 0900 AC 01/23 PO 0830 Oxycodone HCl 5 MG Q4-6 PRN PRN 01/22 1400 AC 01/22 PO 1942 Oxycodone HCl 10 MG Q4-6 PRN PRN 01/22 1400 AC PO Potassium Chloride 20 MEQ DAILY 01/19 0900 AC 01/23 PO 0830 Warfarin Sodium 3 MG COUMADIN 1700 ONE 01/23 1700 CAN PO 01/23 1701 Warfarin Sodium 7.5 MG COUMADIN 1700 ONE 01/23 1700 CAN PO 01/23 1701 Last 24 Hrs of Lab/Abraham Results Last 24 Hrs of Labs/Mics: Laboratory Tests 01/23/18 0612: Anion Gap 10, Estimated GFR 43 L, BUN/Creatinine Ratio 52.5 H, PT 14.1 H, INR 1.29 H, CBC w Diff NO MAN DIFF REQ, RBC 3.86 L, MCV 91.0, MCH 30.4, MCHC 33.5, RDW 14.5, MPV 8.5, Gran % 66.2, Lymphocytes % 18.7 L, Monocytes % 9.5 H, Eosinophils % 5.2 H, Basophils % 0.4, Absolute Granulocytes 4.5, Absolute Lymphocytes 1.3, Absolute Monocytes 0.7 H, Absolute Eosinophils 0.4, Absolute Basophils 0 Assessment/Plan Assessment: 87 year old female with PMH significant for DVT/PE on coumadin presents with altered mental status, slurred speech, and stroke evaluation BASHIR: Creatinine fell from 1.8 to 1.2 today Continue to hold ARBs Given some intravenous fluid resuscitation Avoid nephrotoxins * Renal ultrasound done and showed cysts, no other abnormalities. TIA CT head and CTA were negative for an acute bleed, ischemia or thrombus TPA not given on coumadin Carotid dopplers negative for hemodynamically significant stenoses MRI brain scattered chronic small vessel ischemic change within periventricular white matter Continue aspirin, hold coumadin. PATIENT HAS A HISTORY FO 3 PE'S ON COUMADIN, IF SHE BECOMES SHORT OF BREATH OR TACHYCARDIC CHECK EKG AND CAN LIKELY DO CTA CREATININE IMPROVED. Neurology consulted Bradycardia: second degree AV block Negative chronotropic agents held Continue other antihypertensives Cardiology consultation (Dr. Vanessa) Troponins negative x 3 * patient had permanent pacer placed yesterday by dr julio. He is suggesting to hold coumadin another 24 hours. test INR tomorow. * [employer] will come to test the device. DM: Accuchecks TIDAC Novolog sliding scale insulin HTN: Avoid AV shar blocking agents Increased norvasc to 10mg daily and hydralazine from 25mg to 50mg Continue imdur and losartan Blood pressure better controlled on new regimen HLD: Started on statin because of TIA Reportedly has GI upset with statins, but no complaints at this time PE/DVT: INR subtherapeutic 1.29 Coumadin was held yesterday for pacemaker placement today The plan is to restart Coumadin tomorrow - usual dose is 3mg Problem List: 1. TIA (transient ischemic attack) Pain Ratin Pain Location: na Pain Goal: Remain pain free Pain Plan: prn iv tylenol for shoulder pain Tomorrow's Labs & Rationales: cbc bep Juliocesar Duncan MD 01/23/18 1309: Attending MD Review Statement Attending Statement Attending MD Statement: examined this patient, discuss w/resident/PA/MAILROOM SUPERVISOR, agreed w/resident/PA/MAILROOM SUPERVISOR, discussed with nursing Attending Assessment/Plan: 87F PMH PE / DVT on coumadin, hypertension, hyperlipidemia, insulin-dependent diabetes mellitus, essential tremor, irritable bowel syndrome, peripheral vascular disease presenting initially with altered mental status, slurred speech , right facial droop, not a candidate for tPA due to Coumadin, no CVA found on CTA/MRI head, with improvement in all symptoms, found to be significantly bradycardic. Patient is doing well today, no complaints. 1. TIA 2. Symptomatic bradycardia Plan - Continue on telemetry - Underwent PPM yesterday - Increased the dose of coumadin - Continue remaining home medications - DVT PPx - Continue to work with PT
[2018-01-23 14:17] VITALS: BP 142/70
--- NOTE | 2018-01-23 14:43 | PN- Cardiology ---
Subjective Subjective: The patient is comfortable and doing well post permanent pacemaker. She continues to feel somewhat weak. Objective Vital Signs and I&Os Vital Signs Date Time Temp Pulse Resp B/P B/P Pulse O2 O2 Flow FiO2 Mean Ox Delivery Rate 01/23 1417 98.9 77 20 142/70 94 01/23 1238 80 168/58 01/23 0836 69 144/52 01/23 0836 69 144/52 01/23 0835 69 144/52 01/23 0630 97.3 67 20 150/68 95 01/23 0000 97.8 64 16 138/60 95 01/22 2021 69 146/60 01/22 2021 69 146/60 01/22 1616 70 136/58 01/22 1600 98.5 70 18 138/56 96 Room Air Intake & Output 01/23 1600 01/23 0801/23 0000 01/22 1600 01/22 0800 01/22 0000 Intake Total 740 250 250 535 360 Output Total 400 575 650 700 400 650 Balance 340 -325 -400 -165 -400 -290 Intake, IV 120 535 Intake, Oral 620 250 250 360 Output, Urine 400 575 650 700 400 650 Patient 210 lb 213 lb 213 lb Weight Weight Bed scale Measurement Method Current Medications: Current Medications Sig/Roshan Start time Last Medication Dose Route Stop Time Status Admin Acetaminophen 650 MG ONCE ONE 01/23 1315 DC 01/23 PO 01/23 1316 1353 Acetaminophen 1,000 MG Q6H 01/22 1400 DC 01/23 N/A 1 UNIT IV 01/23 0814 0827 Amlodipine Besylate 10 MG DAILY 01/20 900 AC 01/23 PO 0835 Aspirin 81 MG DAILY 01/19 900 AC 01/23 PO 0829 Cefazolin Sodium 2 GM Q8H 01/23 2000 DC 01/23 N/A 1 UNIT IV 01/23 0429 0329 Cholecalciferol 2,000 IU DAILY 01/19 900 AC 01/23 PO 0831 Cyanocobalamin 1,000 MCG DAILY 01/19 900 AC 01/23 PO 0830 Dextrose/Sodium 1,000 ML Q13H 01/22 08 DC 01/22 Chloride IV 0804 Fenofibrate 145 MG DAILY 01/19 900 AC 01/23 PO 0830 Fish Oil 1,050 MG BID 01/18 2100 AC 01/23 PO 0830 Gabapentin 400 MG QPM 01/18 2100 AC 01/22 PO 2020 Hydralazine HCl 50 MG 4 TIMES/DAY 01/19 1300 AC 01/23 PO 1238 Insulin Aspart 0 TIDAC 01/22 1700 AC 01/23 SC 1238 Insulin Human Regular 0 Q6 01/21 2359 DC 01/22 SC 1121 Isosorbide 60 MG BID 01/18 2300 AC 01/23 Mononitrate PO 0836 Montelukast Sodium 10 MG DAILY 01/19 0900 AC 01/23 PO 0830 Oxycodone HCl 5 MG Q4-6 PRN PRN 01/22 1400 AC 01/22 PO 1942 Oxycodone HCl 10 MG Q4-6 PRN PRN 01/22 1400 AC PO Potassium Chloride 20 MEQ DAILY 01/19 0900 AC 01/23 PO 0830 Warfarin Sodium 3 MG COUMADIN 1700 ONE 01/23 1700 CAN PO 01/23 1701 Warfarin Sodium 7.5 MG COUMADIN 1700 ONE 01/23 1700 CAN PO 01/23 170 Results Last 48 Hrs of Labs/Mics: Laboratory Tests 01/23/18 0612: Anion Gap 10, Estimated GFR 43 L, BUN/Creatinine Ratio 52.5 H, PT 14.1 H, INR 1.29 H, CBC w Diff NO MAN DIFF REQ, RBC 3.86 L, MCV 91.0, MCH 30.4, MCHC 33.5, RDW 14.5, MPV 8.5, Gran % 66.2, Lymphocytes % 18.7 L, Monocytes % 9.5 H, Eosinophils % 5.2 H, Basophils % 0.4, Absolute Granulocytes 4.5, Absolute Lymphocytes 1.3, Absolute Monocytes 0.7 H, Absolute Eosinophils 0.4, Absolute Basophils 0 01/22/18 0440: Anion Gap 9, Estimated GFR 27 L, BUN/Creatinine Ratio 45.6 H, PT 18.4 H, INR 1.68 H Assessment/Plan Assessment/Plan Assessment: 1. 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 Zacarias 2. Hypertension 3. Essential tremor 4. TIA with subtherapeutic INR 5. History of PE/DVT on Coumadin 6. Chronic shortness of breath possibly secondary to asthma. There is no evidence for congestive heart failure 7. Acute on chronic renal insufficiency Recommendations: -Continue current management -I discussed the case with Dr. Zacarias today. The pacemaker function appears normal. Pacemaker interrogation pending. -Dr. Zacarias would prefer that we not start any anticoagulant therapy at least over the next 24 hours pending reassessment of the patient tomorrow. -Follow-up labs tomorrow. Please check INR again tomorrow as well. Continue telemetry? Yes
[2018-01-23 22:15] VITALS: BP 166/100
[2018-01-23 22:28] VITALS: BP 174/60
[2018-01-24 07:00] VITALS: BP 142/76
[2018-01-24 07:35] LABS: PT 12.9 SEC (9.4-12.5)
[2018-01-24 07:51] LABS: ABSOLUTE BASOPHIL COUNT 0 /CUMM (0.0-0.2); ABSOLUTE EOSINOPHIL COUNT 0.4 /CUMM (0.0-0.7); ABSOLUTE GRANULOCYTE CT 4.8 /CUMM (1.4-6.5); ABSOLUTE LYMPH COUNT 1.6 /CUMM (1.2-3.4); ABSOLUTE MONOCYTE COUNT 0.7 /CUMM (0.10-0.60); BASOPHIL % 0.7 % (0.0-2.0); EOSINOPHIL % 5.3 % (0-5); GRANULOCYTE % 63.7 % (42.2-75.2); HEMATOCRIT 37.4 % (37-47); MEAN CORPUSCULAR HGB 30.5 PG (27.0-31.0); MEAN CORPUSCULAR HGB CONC 33.3 G/DL (33.0-37.0); MEAN CORPUSCULAR VOLUME 91.7 FL (81.0-99.0); MEAN PLATELET VOLUME 8.5 FL (7.4-10.4); PLATELET COUNT 237 /CUMM (130-400); RBC DISTRIBUTION WIDTH 14.2 % (11.5-14.5); RED BLOOD CELL CT 4.08 /CUMM (4.20-5.40); WHITE BLOOD CELL COUNT 7.5 /CUMM (4.8-10.8)
--- NOTE | 2018-01-24 08:41 | PN- Housestaff ---
See Addendum Subjective Follow-up For: BASHIR bradycardia Tele-Events Since Last Visit: paced HR 60s Subjective: some left chest wall soreness today after PPM placement no complaints of dizziness or light headed Review of Systems Constitutional: Reports: see HPI. Objective Last 24 Hrs of Vital Signs/I&O Vital Signs Date Time Temp Pulse Resp B/P B/P Pulse O2 O2 Flow FiO2 Mean Ox Delivery Rate 01/24 07 98.2 69 18 142/76 96 01/23 2228 68 174/60 01/23 2215 98.4 76 19 166/100 95 01/23 2018 81 186/62 01/23 2015 81 186/62 01/23 1742 65 176/110 01/23 1417 98.9 77 20 142/70 94 01/23 1238 80 168/58 Intake & Output 01/24 1600 01/24 0800 01/24 0000 Intake Total 120 240 Output Total 375 475 Balance -255 -235 Intake, Oral 120 240 Output, Urine 375 475 Patient 97.239 kg Weight Physical Exam General Appearance: Alert, Oriented X3, Cooperative, No Acute Distress, obese Cardiovascular: Regular Rate, Normal S1, Normal S2, No Murmurs, pacer LCW Lungs: Clear to Auscultation, Normal Air Movement Abdomen: Normal Bowel Sounds, Soft, No Tenderness, No Masses Extremities: No Clubbing, No Cyanosis, No Edema, Normal Pulses Current Medications: Current Medications Sig/Roshan Start time Last Medication Dose Route Stop Time Status Admin Acetaminophen 500 MG Q6P PRN 01/23 1545 AC 01/23 PO 2018 Acetaminophen 650 MG ONCE ONE 01/23 1315 DC 01/23 PO 01/23 1316 1353 Amlodipine Besylate 10 MG DAILY 01/20 900 AC 01/23 PO 0835 Aspirin 81 MG DAILY 01/19 900 AC 01/23 PO 0829 Cholecalciferol 2,000 IU DAILY 01/19 900 AC 01/23 PO 0831 Cyanocobalamin 1,000 MCG DAILY 01/19 900 AC 01/23 PO 08 Fenofibrate 145 MG DAILY 01/19 900 AC 01/23 PO 829 Fish Oil 1,050 MG BID 01/18 2100 AC 01/23 PO 2013 Gabapentin 400 MG QPM 01/18 2100 AC 01/23 PO 2014 Hydralazine HCl 50 MG 4 TIMES/DAY 01/19 1300 AC 01/23 PO 2018 Insulin Aspart 0 TIDAC 01/22 1700 AC 01/23 SC 1741 Isosorbide 60 MG BID 01/18 2300 AC 01/23 Mononitrate PO 2014 Montelukast Sodium 10 MG DAILY 01/19 0900 AC 01/23 PO 0830 Oxycodone HCl 5 MG Q4-6 PRN PRN 01/22 1400 AC 01/22 PO 1942 Oxycodone HCl 10 MG Q4-6 PRN PRN 01/22 1400 AC PO Potassium Chloride 20 MEQ DAILY 01/19 0900 AC 01/23 PO 0830 Warfarin Sodium 5 MG ONCE ONE 01/24 0915 CANr PO 01/24 0916 Warfarin Sodium 3 MG COUMADIN 1700 ONE 01/23 1700 CAN PO 01/23 170 Warfarin Sodium 7.5 MG COUMADIN 1700 ONE 01/23 1700 CAN PO 01/23 170 Last 24 Hrs of Lab/Abraham Results Last 24 Hrs of Labs/Mics: Laboratory Tests 01/24/18627: Anion Gap 11, Estimated GFR 47 L, BUN/Creatinine Ratio 43.6 H, PT 12.9 H, INR 1.18, CBC w Diff NO MAN DIFF REQ, RBC 4.08 L, MCV 91.7, MCH 30.5, MCHC 33.3, RDW 14.2, MPV 8.5, Gran % 63.7, Lymphocytes % 21.3, Monocytes % 9.0, Eosinophils % 5.3 H, Basophils % 0.7, Absolute Granulocytes 4.8, Absolute Lymphocytes 1.6, Absolute Monocytes 0.7 H, Absolute Eosinophils 0.4, Absolute Basophils 0 Assessment/Plan Assessment: 87 year old female with PMH significant for DVT/PE on coumadin presents with altered mental status, slurred speech, and stroke evaluation BASHIR: Creatinine improved to 1.1 Restart losartan 50mg daily Probably related to contrast exposure in combination with ARB TIA CT head and CTA were negative for an acute bleed, ischemia or thrombus TPA not given on coumadin Carotid dopplers negative for hemodynamically significant stenoses MRI brain scattered chronic small vessel ischemic change within periventricular white matter Continue aspirin and coumadin (INR subtherapeutic) Neurology consulted Patient refused statin therapy because of GI upset Bradycardia: second degree AV block Negative chronotropic agents held Continue other antihypertensives Cardiology consultation (Dr. Vanessa) s/p PPM, pacer interogatted today, stable for discharge Will discuss restarting anticoagulation with CT surgery Consider restarting beta jodee now that pacer can prevent bradycardia DM: Accuchecks TIDAC Novolog sliding scale insulin HTN: Consider adding beta jodee s/p PPM Increased norvasc to 10mg daily and hydralazine from 25mg to 50mg Restart losartan now that BASHIR has resolved Blood pressure better controlled on new regimen PE/DVT: INR subtherapeutic Coumadin 5mg today, if okay with CT surgery Diabetic diet DVT ppx-on coumadin DNR/DNI Probable discharge today Problem List: 1. Benign hypertension 2. TIA (transient ischemic attack) 3. Second degree AV block, Mobitz type I Pain Ratin Pain Location: left chest wall Pain Goal: Pain 4 or less Pain Plan: tylenol Tomorrow's Labs & Rationales: inr, probable discharge
--- NOTE | 2018-01-24 09:50 | Patient Discharge Instructions ---
Discharge Instructions General Discharge Information You were seen/treated for: bradycardia Special Instructions: Please follow up with your belt maker, Dr. Vanessa. Please follow up for a postoperative appointment with Dr. Zacarias who placed your pacemaker. Acute Coronary Syndrome Inclusion Criteria At DC or during hospital stay patient has or had the following: ACS DIAGNOSIS No Discharge Core Measures Meds if any: Prescribed or Continued at Discharge Meds if any: NOT Prescribed or Continued at Discharge Congestive Heart Failure Inclusion Criteria At DC or during hospital stay patient has or had the following: CHF DIAGNOSIS No Discharge Core Measures Meds if any: Prescribed or Continued at Discharge Meds if any: NOT Prescribed or Continued at Discharge Cerebrovascular accident Inclusion Criteria At DC or during hospital stay patient has or had the following: CVA/TIA Diagnosis Yes Discharge Core Measures Meds if any: Prescribed or Continued at Discharge Meds if any: NOT Prescribed or Continued at Discharge Venous thromboembolism Inclusion Criteria VTE Diagnosis No VTE Type NONE VTE Confirmed by (Test) NONE Discharge Core Measures - Per Current guidelines, there needs to be overlap - treatment for the first 5 days of Warfarin therapy. - If discharged on Warfarin prior to 5 days of - overlap therapy, the patient will need to be - assessed for post discharge needs including - *Post discharge parental anticoagulation - *Warfarin and/or parental anticoagulation education - *Follow up date to check INR post discharge At least 5 days overlap therapy as Inpatient No Meds if any: Prescribed or Continued at Discharge Note: Overlap Therapy is Warfarin and Anticoagulant Meds if any: NOT Prescribed or Continued at Discharge
[2018-01-24 12:23] VITALS: BP 142/78
--- NOTE | 2018-01-24 18:35 | Discharge Summary ---
Visit Information Visit Dates Admission Date: 01/18/18 Discharge Date: 01/24/18 Hospital Course Course Attending Physician: Phi Padron MD Primary Care Physician: Grady Wilkerson MD Hospital Course: 87 year old female with PMH significant for HTN, HLD, insulin dependent DM, AV block, and DVT/PE on coumadin presented with altered mental status, slurred speech for stroke evaluation. CT head and CTA were negative for an acute bleed, ischemia or thrombus. tPA was not given because of coumadin treatment. The patient symptoms improved and an MRI was performed that demonstrated chronic microangiopathy without acute infarction. The patient's altered mental status was due to a transient ischemic attack. Neurology was consulted and recommended increasing coumadin to a therapeutic INR, improved hypertension control and the addition of a statin. Statin therapy was initiated but patient ultimately refused after several days because of reported GI upset with multiple statin trials in the past. The patient developed an acute kidney injury likely related to contrast exposure, her ARB was held briefly and the kidney injury resolved gradually. The patient's hospital course was notable for hypertension and bradycardia. Her poor controlled hypertension likely contributed to her neurological symptoms reaching a systolic blood pressure >220. Her beta jodee was discontinued on admission because of bradycardia and progressive AV block becoming symptomatic and her ARB was held because of acute kidney injury. Hydralazine and norvasc were increased for several days during this time for blood pressure control. Coumadin was reversed with Vitamin K and a permanent pacemaker was placed for symptomatic bradycardia with AV block by Dr. Zacarias in consultation with Dr. Vanessa of cardiology. The pacemaker was interogatted and functioning well. After pacemaker placement her fatigue, weakness, and presyncopal symptoms improved. Her previous antihypertensive regimen of beta jodee, ARB, norvasc, nitro, and hydralazine were restarted with an adequate response. Her INR was subtherapeutic for most of her stay and dose will likely need to be increased as an outpatient. Her blood pressure will also need close follow up with further adjustments of her medications to reduce her risk for future neurological and cardiovascular events. Follow up with Dr. Wilkerson, Dr. Vanessa, and post operative appointment with Dr. Zacarias. Allergies: Coded Allergies: Sulfa (Sulfonamide Antibiotics) (Severe, ANAPHYLAXIS 04/05/16) STATINS (BAD REAXCTION 01/27/17) YUKO Inhibitors (Intermediate, COUGH 04/05/16) Significant Procedures: Permanent pacemaker placement 01/23/18 Disposition Summary Disposition Principal Diagnosis: TIA Symptomatic bradycardia with AV block requiring permanent pacemaker placement Acute kidney injury Additional Diagnosis: Hypertension Hyperlipidemia Insulin dependent diabetes History of DVT/PE on coumadin with subtherapeutic INR Essential tremor Discharge Disposition: home or self care Discharge Instructions General Discharge Information Code Status: Do Not Resucitate/Intubat Patient's Diet: Diabetic diet with 2 gram sodium restriction Patient's Activity: As tolerated Follow-Up Instructions/Appts: Follow up with Dr. Wilkerson, Dr. Vanessa, and post operative appointment with Dr. Zacarias. Medications at Discharge Discharge Medications: Continue taking these medications: Valsartan (Diovan) 320 MG TABLET 1 Tablet ORAL DAILY Comments: Last Taken: 01/24/18 Time: 11:30 AM [facility] GIVEN [facility] Potassium Chloride (K-Tab ER) 20 MEQ TABLET.ER 1 Tablet ORAL DAILY Comments: Last Taken: 01/24/18 Time: 9:15 AM Cholecalciferol (Vitamin D3) (Vitamin D) 2,000 UNIT TABLET 1 Tablet ORAL DAILY Comments: Last Taken: 01/24/18 Time: 9:15 AM Indapamide (Indapamide) 2.5 MG TABLET 1 Tablet ORAL DAILY Comments: NOT GIVEN IN HOSPITAL Seymour-3 Acid Ethyl Esters (Lovaza) 1 GRAM CAPSULE 1 Capsule ORAL TWICE DAILY Comments: Last Taken: 01/24/18 Time: 9:15 AM FISH OIL GIVEN Warfarin Sodium (Coumadin) 3 MG TABLET 1 Tablet ORAL THURSDAY, THURSDAY, THURSDAY Comments: Last Taken: 01/24/18 Time: 11:30 AM 7.5 MG GIVEN Hydralazine HCl (Hydralazine HCl) 25 MG TABLET 1 Tablet ORAL 4 TIMES A DAY Comments: Last Taken: 01/24/18 Time: 12:15 PM Amlodipine Besylate (Amlodipine Besylate) 5 MG TABLET 1 Tablet ORAL DAILY Qty = 90 Comments: Last Taken: 01/24/18 Time: 9:15 AM Isosorbide Mononitrate (Isosorbide Mononitrate ER) 60 MG TAB.ER.24H 1 Tablet ORAL THURSDAY, THURSDAY, THURSDAY Qty = 180 Comments: Last Taken: 01/24/18 Time: 9:15 AM Montelukast Sodium (Montelukast Sodium) 10 MG TABLET 1 Tablet ORAL DAILY Qty = 90 Comments: Last Taken: 01/24/18 Time: 9:15 AM Fenofibrate (Fenofibrate) 150 MG CAPSULE 1 Capsule ORAL EVERY 48 HOURS (Every 2 days) Qty = 90 Comments: Last Taken: 01/24/18 Time: 9:15 AM Gabapentin (Gabapentin) 400 MG CAPSULE 1 Capsule ORAL Every night Comments: Last Taken: 01/23/18 Time: 8:15 PM Liraglutide (Victoza 3-Sam) 0.6 MG/0.1 ML (18 MG/3 ML) PEN.INJCTR 0.6 Milligram Inject into fatty tissue DAILY Qty = 18 Comments: NOT GIVEN IN HOSPITAL Cyanocobalamin (Vitamin B-12) 1,000 MCG TABLET 1 Tablet ORAL DAILY Comments: Last Taken: 01/24/18 Time: 9:15 AM Warfarin Sodium (Coumadin) 3 MG TABLET 0.5 Tablet ORAL THURSDAY, THURSDAY AND THURSDAY Comments: Last Taken: 01/24/18 Time: 11:30 AM 7.5 MG GIVEN Insulin Detemir (Levemir) (Unknown Strength) VIAL 24 Units Inject into fatty tissue DAILY Qty = 1 Comments: NOT GIVEN IN HOSPITAL Metoprolol Succ XL (Toprol XL) 25 MG TAB 1 Tablet ORAL Every night Comments: NOT GIVEN IN HOSPITAL Copies To: tOf ULLOA,Kerwin Wilkerson MD,Grady Attending MD Review Statement Documenting Attending: Juliocesar Duncan MD
--- NOTE | 2018-01-24 19:40 | PN- Cardiology ---
Subjective Subjective: stable, pending discharge Objective Vital Signs and I&Os Vital Signs Date Time Temp Pulse Resp B/P B/P Pulse O2 O2 Flow FiO2 Mean Ox Delivery Rate 01/24 1223 74 142/78 01/24 1134 75 176/66 01/24 0918 72 164/62 01/24 0918 72 164/62 01/24 0917 72 164/62 01/24 0700 98.2 69 18 142/76 96 01/23 2228 68 174/60 01/23 2215 98.4 76 19 166/100 95 01/23 2018 81 186/62 01/23 2015 81 186/62 Intake & Output 01/24 1600 01/24 0800 01/24 0000 01/23 1600 01/24 0800 01/23 0000 Intake Total 120 240 740 250 250 Output Total 375 475 400 575 650 Balance -255 -235 340 -325 -400 Intake, IV 120 Intake, Oral 120 240 620 250 250 Output, Urine 375 475 400 575 650 Patient 214 lb 210 lb Weight Weight Bed scale Measurement Method Current Medications: Current Medications Sig/Roshan Start time Last Medication Dose Route Stop Time Status Admin Acetaminophen 500 MG Q6P PRN 01/23 1545 DCD 01/23 PO 2017 Amlodipine Besylate 10 MG DAILY 01/20 900 DCD 01/24 PO 0918 Aspirin 81 MG DAILY 01/19 900 DCD 01/24 PO 0918 Cholecalciferol 2,000 IU DAILY 01/19 900 DCD 01/24 PO 0919 Cyanocobalamin 1,000 MCG DAILY 01/19 900 DCD 01/24 PO 0919 Fenofibrate 145 MG DAILY 01/19 09 DCD 01/24 PO 0919 Fish Oil 1,050 MG BID 01/18 2100 DCD 01/24 PO 0918 Gabapentin 400 MG QPM 01/18 2100 DCD 01/23 PO 2014 Hydralazine HCl 50 MG 4 TIMES/DAY 01/19 1300 DCD 01/24 PO 1223 Insulin Aspart 0 TIDAC 01/22 1700 DCD 01/24 SC 1220 Isosorbide 60 MG BID 01/18 2300 DCD 01/24 Mononitrate PO 0918 Losartan Potassium 50 MG DAILY 01/24 0916 DCD 01/24 PO 1134 Montelukast Sodium 10 MG DAILY 01/19 09 DCD 01/24 PO 0919 Oxycodone HCl 5 MG Q4-6 PRN PRN 01/22 1400 DCD 01/22 PO 1942 Oxycodone HCl 10 MG Q4-6 PRN PRN 01/22 1400 DCD PO Potassium Chloride 20 MEQ DAILY 01/19 0900 DCD 01/24 PO 0918 Warfarin Sodium 7.5 MG ONCE ONE 01/24 1030 DC 01/24 PO 01/24 1031 1131 Warfarin Sodium 5 MG ONCE ONE 01/24 0915 CAN PO 01/24 0916 Assessment/Plan Assessment/Plan Assessment: 1. 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 Zacarias 2. Hypertension 3. Essential tremor 4. TIA with subtherapeutic INR 5. History of PE/DVT on Coumadin 6. Chronic shortness of breath possibly secondary to asthma. There is no evidence for congestive heart failure 7. Acute on chronic renal insufficiency Recommendations: -Continue current management -warfarin restarted -follow-up with Dr. Sow post discharge -the patient is being discharged home on her regular warfarin dose. Of note, she was subtherapeutic on admission. The patient knows to contact her primary physician and have a follow-up INR performed early this week. Continue telemetry? No
== END 2018-01-24 13:08 | DRG 41 ==
LOC: ERH 10:44 → 1NO 14:26 → ERHI 14:26 → ENRESERV 15:15 → ENTRNSPT 15:32 → EDTRNSPT 15:40 → EDTRNSPTSTS 15:40 → 1NO 15:47 → CMPTRNSPT 16:12 → 1NO 01-19 08:44 → ENTRNSPT 01-22 14:28 → EDTRNSPT 01-22 14:32 → EDTRNSPTSTS 01-22 14:36 → CMPTRNSPT 01-22 14:50 → ENPENDDIS 01-24 11:34 → DELTRNSPT 01-24 12:53 → ENTRNSPT 01-24 12:56 → EDTRNSPTSTS 01-24 13:05 → EDTRNSPT 01-24 13:05 → 1NO 01-24 13:08 → CMPTRNSPT 01-24 13:17
PROVIDERS: Emergency Medicine; Internal Medicine Interventional Cardiology; Preventive Medicine Public Health & General Preventive Medicine; Student in an Organized Health Care Education/Training Program
PROC: 0JH606Z Insertion of Pacemaker, Dual Chamber into Chest Subcutaneous Tissue and Fascia, Open Approach (ICD-10-PCS; principal; 2018-01-22)
PROC: 02H63JZ Insertion of Pacemaker Lead into Right Atrium, Percutaneous Approach (ICD-10-PCS; principal; 2018-01-22)
PROC: 02HK3JZ Insertion of Pacemaker Lead into Right Ventricle, Percutaneous Approach (ICD-10-PCS; principal; 2018-01-22)
DX: G45.9 Transient cerebral ischemic attack, unspecified (principal); N17.9 Acute kidney failure, unspecified; I44.2 Atrioventricular block, complete; Z68.41 Body mass index [BMI] 40.0-44.9, adult; I73.9 Peripheral vascular disease, unspecified; E11.22 Type 2 diabetes mellitus with diabetic chronic kidney disease; N18.3 Chronic kidney disease, stage 3 (moderate); E78.5 Hyperlipidemia, unspecified; I16.0 Hypertensive urgency; I12.9 Hypertensive chronic kidney disease with stage 1 through stage 4 chronic kidney disease, or unspecified chronic kidney disease; G25.0 Essential tremor; K58.9 Irritable bowel syndrome, unspecified; Z66 Do not resuscitate; Z86.711 Personal history of pulmonary embolism; Z86.718 Personal history of other venous thrombosis and embolism; Z85.3 Personal history of malignant neoplasm of breast; Z79.4 Long term (current) use of insulin; E66.9 Obesity, unspecified; Z88.8 Allergy status to other drugs, medicaments and biological substances; Z88.2 Allergy status to sulfonamides
CPT/HCPCS: 1NSP; 70551; 36415; 36592; 71045; 76775; 82436; 93005; 93010; 93306; 96374; 97110-GO; 97116-GO; 97161-GP; C1785; C1898; J0131; J0360; J0690; J1815; J2001; J2405; J3490; J7040; J7042

== ENCOUNTER 2018-06-13 11:02 | Emergency (ER) | payer OTHER, MEDICARE ==
[~2018-06-13] VITALS: Ht 149.9 cm; Wt 85.7 kg
[~2018-06-13 11:02] MED LIST changes: +LEVEMIR100 UNIT/1 SC; +TOPROL XL25 M1 PO; +VICTOZA 3-0.6 MG/0.1 SC; +VITAMIN B-121000 MC3 PO
--- NOTE | 2018-06-13 13:09 | CT SCAN REPORT ---
CT HEAD WITHOUT IV CONTRAST CT CERVICAL SPINE WITHOUT IV CONTRAST INDICATION: Fall on eliquis. COMPARISON: Chest CTA 01/27/2017. TECHNIQUE: Multidetector CT acquisitions of the head and cervical spine were obtained without IV contrast. Multiplanar reformats were acquired and utilized for image interpretation. FINDINGS: HEAD: Global cerebral volume loss and mild chronic microangiopathy. There is no intracranial hemorrhage, hydrocephalus, extra-axial surface collection, midline shift, or other herniation pattern. Perkins to white matter differentiation is diffusely maintained without evidence of an evolved acute territorial infarct. The basilar cisterns are preserved. No significant soft tissue abnormality. No acute osseous abnormality. The paranasal sinuses and the mastoid air cells are well-aerated. CERVICAL SPINE: Straightening of the cervical lordosis. Calcified pannus adjacent to the dens. Multilevel facet arthropathy. Disc spaces are preserved. There is no acute fracture and there is no acute subluxation. Chronic spinous process avulsion fracture at T1 is stable when compared to the prior examination. The craniocervical and atlantoaxial articulations are normal. There is no prevertebral soft tissue swelling. Multinodular thyroid gland with the largest nodule within the right thyroid lobe measuring up to 1.4 cm. Nonemergent ultrasound recommended for further assessment. IMPRESSION: 1. No acute intracranial abnormality. Global cerebral volume loss and mild chronic microangiopathy. 2. No acute osseous abnormality within the cervical spine. 3. Multinodular thyroid gland with the largest nodule within the right thyroid lobe measuring up to 1.4 cm. Nonemergent ultrasound recommended for further assessment.
--- NOTE | 2018-06-13 13:53 | RADIOLOGY REPORT ---
EXAMINATION: AP view of the pelvis, 2 views of the right hip, 3 views of the right knee, 3 views of the left knee, and PA/lateral views of the chest CLINICAL INFORMATION: Pain. COMPARISON: Chest radiographs 01/22/2018. FINDINGS: Chest: There is a left pectoral dual-lead pacemaker. Leads appear intact. Symmetric lung inflation. No focal consolidation, pleural effusion, or pneumothorax. Cardiac silhouette size is normal. There are no acute osseous findings. No displaced rib fractures are seen. Pelvis: No fractures are identified. Hip joints are maintained. Calcified phleboliths project over the pelvis. Arterial atherosclerotic calcification. Right hip: No fracture. Hip joint is maintained. Arterial atherosclerotic calcification. Right knee: There is chondrocalcinosis. No fractures are identified. Hypertrophic spur along the upper pole of the patella. There is also a well-corticated ossific structure inferomedial to the patella that is chronic. Medial compartment joint space narrowing. There is arterial atherosclerotic calcification. No joint effusion. Left knee: Chondrocalcinosis. No fractures are identified. Medial compartment joint space narrowing. There is arterial atherosclerotic calcification. Well-corticated ossification superficial to the patella. Hypertrophic spur along the upper pole the patella. IMPRESSION: - No acute findings within the chest. No displaced rib fractures are identified. - No acute osseous findings involving the right or left knee. Chondrocalcinosis of the right and left knee. There is medial compartment joint space narrowing bilaterally. No knee joint effusions. Well-corticated ossific structures adjacent to the right and left patella appear chronic. - No acute osseous findings involving the pelvis or the right hip.
[2018-06-13 14:12] VITALS: BP 178/66
--- NOTE | 2018-06-13 15:03 | ED MVC/FALL/TRAUMA COMPLAINT ---
History of Present Illness General Chief Complaint: Lower Extremity Injury Stated Complaint: RT KNEE PAIN S/P FALL Source: patient, family Exam Limitations: no limitations Vital Signs & Intake/Output Vital Signs & Intake/Output Vital Signs Date Time Temp Pulse Resp B/P B/P Pulse O2 O2 Flow FiO2 Mean Ox Delivery Rate 06/13 1412 97.9 64 20 178/66 97 Room Air 06/13 1106 98.0 78 20 151/71 97 Room Air ED Intake and Output 06/14 0000 06/13 1200 Intake Total 0 Output Total Balance 0 Intake, Oral 0 Patient 189 lb Weight Weight Reported by Patient Measurement Method Allergies Coded Allergies: Sulfa (Sulfonamide Antibiotics) (Severe, ANAPHYLAXIS 04/05/16) STATINS (BAD REAXCTION 01/27/17) YUKO Inhibitors (Intermediate, COUGH 04/05/16) Reconcile Medications Amlodipine Besylate 5 MG TABLET 1 TAB PO DAILY HEART (Reported) Cholecalciferol (Vitamin D3) (Vitamin D) 2,000 UNIT TABLET 1 TAB PO DAILY SUPPLEMENT (Reported) Cyanocobalamin (Vitamin B-12) 1,000 MCG TABLET 1 TAB PO DAILY VITAMIN SUPPORT (Reported) Fenofibrate 150 MG CAPSULE 1 CAP PO Q48 CHOLESTEROL/TRIGLYCERIDES (Reported) Gabapentin 400 MG CAPSULE 1 CAP PO QPM DYSARTHRIA (Reported) Hydralazine HCl 25 MG TABLET 1 TAB PO 4 TIMES/DAY HEART (Reported) Indapamide 2.5 MG TABLET 1 TAB PO DAILY BP (Reported) Insulin Detemir (Levemir) (Unknown Strength) VIAL 24 U SC DAILY DM (Reported) Isosorbide Mononitrate (Isosorbide Mononitrate ER) 60 MG TAB.ER.24H 1 TAB PO TU TH SAT HEART (Reported) Liraglutide (Victoza 3-Sam) 0.6 MG/0.1 ML (18 MG/3 ML) PEN.INJCTR 0.6 MG SC DAILY DIABETES (Reported) Metoprolol Succ XL (Toprol XL) 25 MG TAB 1 TAB PO QPM HTN (Reported) Montelukast Sodium 10 MG TABLET 1 TAB PO DAILY ALLERGIES/RESPIRATORY ( Reported) [place]-3 Acid Ethyl Esters (Lovaza) 1 GRAM CAPSULE 1 CAP PO BID CHOLESTEROL ( Reported) Potassium Chloride (K-Tab ER) 20 MEQ TABLET.ER 1 TAB PO DAILY SUPPLEMENT ( Reported) Valsartan (Diovan) 320 MG TABLET 1 TAB PO DAILY HEART/BP (Reported) Warfarin Sodium (Coumadin) 3 MG TABLET 1 TAB PO SAT BLOOD THINNER (Reported) Warfarin Sodium (Coumadin) 3 MG TABLET 0.5 TAB PO Thursday PE ( Reported) Triage Note: PT TO ED C/O B/L KNEE PAIN S/P TRIP AND FALL IN [employer]. DENIES HEADSTRIKE. STATES RIGHT KNEE HURTS MORE THAN LEFT. ICE APPLIED. DECLINING MEDS IN TRIAGE. DENIES FEELING DIZZY PRIOR TO FALL. Triage Nurses Notes Reviewed? yes HPI: 87 yo F with pmhx sig for PE on eliquis presents to ED s/p mechnical fall in orthodox, was turning around and tripped over foot. No preceding dizziness, cp/sob /ap/noriega/palp. Denies LOC, n/v. No recent illness. Main complain is BL knees. Able to ambualte on scene. Past History Travel History Traveled to [place] past 21 day No Medical History Any Pertinent Medical History? see below for history Neurological: ADULT TREMORS EENT: NONE Cardiovascular: hypertension, hyperlipidemia Respiratory: pulmonary embolism Gastrointestinal: diverticulitis, irritable bowel syndrome, peptic ulcer disease , KIDNEY STONES Hepatic: NONE Renal: NONE Musculoskeletal: NONE Psychiatric: NONE Endocrine: diabetes Blood Disorders: PE Cancer(s): breast cancer HOME HEALTH MANAGER/Reproductive: NONE History of MRSA: No History of VRE: No History of CDIFF: No Tetanus Vaccine: 12/28/11 Surgical History Surgical History: appendectomy, cholecystectomy, hernia repair-incisional, LUMPECTOMY BL CARPAL TUNNEL R ROTATOR CUFF GALLBLADDER CATARACTS BL Psychosocial History Who do you live with Daughter Services at Home None What is your primary language Sinhala Tobacco Use: Never used ETOH Use: denies use Illicit Drug Use: denies illicit drug use Family History Hx Contributory? No Review of Systems Review of Systems Constitutional: Denies: no symptoms. Eyes: Denies: no symptoms. Respiratory: Denies: no symptoms. Cardiovascular: Denies: chest pain. Gastrointestinal/Abdominal: Denies: nausea, vomiting. Musculoskeletal: Reports: joint swelling. All Other Systems: Reviewed and Negative Physical Exam Physical Exam General Appearance: no apparent distress, alert, awake Head: atraumatic Eyes: Bilateral: normal appearance. Ears, Nose, Throat, Mouth: hearing grossly normal Neck: tenderness (midlien c spine ttp) Respiratory: normal breath sounds, mild right upper chest ttp where patients elbow hit herself. No abrasions, crepitus or extreme ttp Cardiovascular: regular rate/rhythm Peripheral Pulses: 2+ dorsalis pedis (R) (via doppler), 2+ dorsalis pedis (L) (via doppler) Extremities: normal range of motion (mild right knee joint swelling) Neurologic/Psych: awake, alert, oriented x 3, motor/sensory deficits (mild decreased sensation below) Skin: abrasion over right knee Core Measures ACS in differential dx? No CVA/TIA Diagnosis No Sepsis Present: No Sepsis Focused Exam Completed? No Progress Differential Diagnosis: C/T/L spine injury, ext injury, pelvis injury Plan of Care: imaging, ambulation test Comments: Patient on eliquis. All CT/XRs negative. Liekly mild hemarthroisis. Not big enough to drain. Swelling is causing mild neuropraxia just below but has euqal DP pulses BL (with doppler), strength/motor intact below.Low concern for permanent neurologic damage. No concern for vascular damage. Initial chest exam with mild ttp but this was relieved with tylenol. No abdominal ttp. Able to ambualte by self. Pain relieved with YUKO wrap. Lives with family who assures close-by care. Pt is to call primary Dr tomorrow whom I spoke with and is in agreement with plan. Departure Departure Disposition: HOME OR SELF CARE Condition: Stable Clinical Impression Primary Impression: Traumatic ecchymosis of right knee Referrals: [facility] (PCP/Family) Additional Instructions: Please call Dr. Wilkerson tomorrow to update your condition. If you have any chest pain, trouble breathing, dizziness, feel as if you may fall, nausea, vomiting, change in vision, loss of feeling in your arms or legs or if you have any other concerns please return to the emergency department. Departure Forms: Customer Survey General Discharge Information
== END 2018-06-13 15:04 ==
LOC: ERH 11:02
DX: S80.01XA Contusion of right knee, initial encounter (principal); W19.XXXA Unspecified fall, initial encounter; Y92.22 Religious institution as the place of occurrence of the external cause; Y93.9 Activity, unspecified; I10 Essential (primary) hypertension; E78.5 Hyperlipidemia, unspecified; K58.9 Irritable bowel syndrome, unspecified
CPT/HCPCS: 71046; 72170; 73502-RT; 73564-50